=== PATIENT | female | born 1955 | race Caucasian/White ===

== ENCOUNTER 2016-12-03 13:09 | Emergency (ER) | payer OTHER ==
[~2016-12-03] VITALS: Ht 154.9 cm; Wt 70.0 kg
[~2016-12-03 13:09] MED LIST: ALBUAER2 INH; ALPR-411 PO; ASPEC325 PO; CALC600T9 PO; CHOL20007 PO; CLC6 PO; CYAN1TAB17 PO; LANS15CA15 PO; LPR25 PO; LPT40 PO; LSN5 PO; MAGN1CAP2 PO; MULT-614 PO; PLV75 PO; UBIQ1CAP PO
[2016-12-03 13:14] VITALS: Ht 154.9 cm; Wt 70.0 kg
[2016-12-03 13:35] VITALS: O2SAT 97
[2016-12-03] MEDS ORDERED: CLOP1TAB15 PO (13:42)
[2016-12-03] MEDS ORDERED: LISI-729 PO (13:42)
[2016-12-03] MEDS ORDERED: ATOR-26 PO (13:42)
[2016-12-03] MEDS ORDERED: SODIUM CHLORIDE 0.9% 1000ML 1,000 ML IV STA (13:45)
--- NOTE | 2016-12-03 14:09 | DIAGNOSTIC IMAGING REPORT ---
CHEST ONE VIEW PORTABLE CLINICAL HISTORY: EVALUATE WEAKNESS dyspnea COMPARISON STUDY: 11/27/2016 FINDINGS: The bones soft tissues and hemidiaphragms are normal. The cardiomediastinal silhouette is normal. The lungs are clear. The pulmonary vasculature is normal. IMPRESSION: Negative chest. Electronically signed by: Cam Whittington M.D. 12/03/2016 2:07 PM 12/03/2016 2:03 PM
[2016-12-03 14:11] LABS: BASO % 0.3 %; BASO ABS # 0.02 K/uL (0-0.2); COMPLETE YES; EOS % 0.8 %; HEMATOCRIT 40.7 % (37-47); IG% 0.2 %; LYMPH % 26.6 %; LYMPH ABS # 1.65 K/uL (1.2-3.4); MEAN CELL VOLUME 86.6 fL (80-100); MEAN CORPUSCULAR HEMOGLOBIN 28.9 pg (25-34); MEAN CORPUSCULAR HGB CONC 33.4 g/dl (32-36); MEAN PLATELET VOLUME 11.7 fL (7.4-10.4); MONO % 4.4 %; NEUT % 67.7 %; PLATELET COUNT 214 K/uL (130-400)
[2016-12-03 14:18] LABS: BUN/CREATININE RATIO 13.4 (10-20); CREATININE 0.83 mg/dl (0.60-1.20); MAGNESIUM 2.3 mg/dl (1.8-2.4); POTASSIUM 3.8 mmol/L (3.5-5.1)
[2016-12-03 14:23] LABS: PROTHROMBIN TIME (PATIENT) 10.2 SECONDS (9.0-12.0)
[2016-12-03 14:29] LABS: CKMB/CK RATIO 0.6 (0-3.0); THYROID STIMULATING HORMONE 1.18 uIu/ml (0.300-4.500)
[2016-12-03 15:40] VITALS: BP 115/77; PULSE 68; TEMP 36.7; O2SAT 97
--- NOTE | 2016-12-03 16:03 | CARDIOLOGY CONSULTATION ---
DATE OF CONSULTATION: 12/03/2016 OUTPATIENT CONSULTATION CONSULTATION REQUESTED BY: Dr. Rubin. REASON FOR CONSULTATION: Palpitations. HISTORY OF PRESENT ILLNESS: Ms. Barcenas is a very pleasant 60-year-old woman who normally follows with Dr. Silverio of our cardiology practice. She presented to [facility] Emergency Department on 12/03/2016 with a complaint of palpitations. The patient has had a complicated course over the last several weeks which include a drug-eluting stent placement to diagonal vessel in the setting of a non-ST segment elevation MD followed by post-MD pericarditis followed by asthma exacerbation. She has been following with Dr. Silverio of our group and she has recently had her beta blockers discontinued due to recurrent asthma exacerbations. The patient states that she has now been off beta blockers for approximately 3 days. Yesterday was the first day after her MD that she tried to get some exercise. She states that she walked gently on a treadmill for about 10 minutes and did well and had no chest pain or shortness of breath at that time, but after she got off she started noticing a fluttering sensation in her chest. She states that her heart beat just felt irregular and just felt a little funny to her. She denied any associated symptoms with it and that just something she noticed then several hours later after eating dinner, she was sitting down and the symptoms became worse. She states that she just felt her heart pounding in her chest and this feeling waxed and waned for several hours and lasted overnight. She denied any associated symptoms with it, specifically denied any chest pain, shortness of breath, lightheadedness, dizziness, or syncope. She states that she just felt off. On 12/03/2016, her symptoms persisted, she came into the Emergency Department and she states that her symptoms persisted while on telemetry monitoring here despite the fact that monitor showed only normal sinus rhythm with no significant ectopy and no arrhythmias. Currently, she states that she feels well with only a slight sensation of her heart beating irregular in her chest. PAST SURGICAL HISTORY: 1. Cardiac catheterization with drug-eluting stent placement to the diagonal, October 2016. 2. Gastric bypass surgery. 3. Cholecystectomy. 4. Hernia repair. MEDICAL ILLNESSES: 1. Coronary artery disease status post drug-eluting stent placement in the setting of a non-ST segment elevation MD. 2. Anxiety. 3. Asthma. 4. GERD. 5. Dyslipidemia. 6. Hypertension. 7. Obstructive sleep apnea. 8. Post-non ST-segment elevation MD pericarditis. FAMILY HISTORY: Mother with coronary artery disease in her 50s. SOCIAL HISTORY: She denies any alcohol, tobacco or recreational drug use. She is . She lives at home with her . ALLERGIES: 1. MORPHINE. 2. CODEINE. 3. Terazosin. MEDICATIONS AN OUTPATIENT: 1. Aspirin 81 mg daily. 2. Atorvastatin 80 mg daily. 3. Plavix 75 mg daily. 4. Prevacid 15 mg daily. 5. Lisinopril 5 mg daily. 6. Effexor daily. 7. Xanax as needed. 8. Albuterol as needed. REVIEW OF SYSTEMS: As per HPI, all other review of systems reviewed and negative at this time. PHYSICAL EXAMINATION: VITALS: Temperature afebrile, pulse 68, respiratory rate 12, blood pressure 115/77, saturating 97% on room air. GENERAL: Awake, alert, oriented x3 in no acute distress. HEENT: Normocephalic, atraumatic. Pupils equal, round, and reactive to light and accommodation. Extraocular muscles intact. Anicteric sclerae. Moist mucous membranes. NECK: No JVD, no bruit. CARDIOVASCULAR: Regular. Positive S4. Normal S1 and S2. No S3. No murmurs, rubs or gallops. PULMONARY: Clear to auscultation bilaterally. No rales, rhonchi, or wheezing. ABDOMEN: Bowel sounds x4, soft. No rebound, guarding, tenderness. No organomegaly. EXTREMITIES: No clubbing, cyanosis or edema. +2 pedal pulses bilaterally. SKIN: Warm and dry. TEST RESULTS: A 12-lead EKG performed in the Emergency Department independently reviewed at this time shows normal sinus rhythm with slight sinus arrhythmia at 70 beats per minute, inverted T waves in the lateral leads, no change compared to previous study. LABORATORY STUDIES OF SIGNIFICANCE: Sodium 141, potassium 3.8, BUN 11, creatinine 0.8, magnesium 2.3. TSH of 1.2. IMPRESSION: 1. Palpitations secondary to cardiac awareness. 2. Coronary artery disease status post drug-eluting stent placement to the diagonal. 3. Post-myocardial infarction pericarditis. 4. Asthma. RECOMMENDATIONS: It was my pleasure to see Ms. Barcenas in consultation today. The pathophysiology of cardiac awareness and beta vickey withdrawal were discussed with the patient and her at great lengths. She was counseled that she is most likely just more aware of her heart beating, now that she is off the beta vickey and given her history of asthma along with the fact she has been off the beta vickey for few days now, it has probably gone through the worst with that, it will not be restarted at this time. Consideration could be given to adding a calcium channel vickey in the future, but I will defer at this point, instead will have her seen in our office in 1 week in followup and further adjustments could be made at that time. Otherwise, it is okay for the patient to be discharged to home from a cardiac standpoint with no other medication changes. Thank you very much for allowing me to participate in the care of your patient.
[2016-12-03] MEDS ORDERED: VENL1CAP92 PO (21:12)
--- NOTE | 2016-12-03 22:36 | EMERGENCY ROOM VISIT NOTE ---
History Report prepared by Juan Alberto: Freya Costa Under the Supervision of: Dr. Logan Rubin M.D. First contact with patient: 13:45 Chief Complaint: IRREGULAR HEARTBEAT Stated Complaint: IRREGULAR HEARTBEAT Nursing Triage Summary: Patient states she noticed an irregular heartrate last night approx 5pm, feels like butterflies sometimes. Associated SOB, mid sternal chest pain. Pain in neck intermittently yesterday. History of Present Illness The patient is a 60 year old female who presents to the Emergency Room with complaints of intermittent palpitations that began last evening around 1700. Per records, the patient had a Non-STEMI in October and ad a MOSQUERA to D1. Records indicate that the patient additionally had posterior infarction pericarditis. The patient states that she developed "flutters" intermittently last night. She states that the palpitations seem more forceful, but denies it happening persistently. The patient additionally associates shortness of breath , dizziness, and lightheadedness with her symptoms today. She additionally notes mid sternal chest discomfort, but denies any sharp pains. The patient states that a couple of her short episodes of chest pain felt similar to her chest pain with her Non-STEMI, but denies any being as long lasting as the pain she felt with her Non-STEMI. She states that she has experienced left neck pain last night, but denies any jaw pain or arm pain. The patient states that she has been taking all her medications. Pt denies LOC, headache, fevers, chills, diaphoresis, visual changes, nausea, vomiting, abdominal pain, back pain , loss of appetite, melena, hematochezia, urinary symptoms, numbness, weakness, leg swelling or pain, lymphadenopathy, rash, or other complaints. Source of History: patient, other (previous records) Onset: last evening around 1700 Position: other (global) Quality: other (palpitations) Timing: intermittent Associated Symptoms: + SOB, + chest pain (mid-sternal intermittent) Note: Associated Symptoms: lightheadedness, dizziness Review of Systems See HPI for pertinent positives and negatives. A total of ten systems were reviewed and were otherwise negative. Past Medical & Surgical Medical Problems: (1) Anxiety (2) Asthma (3) Depression (4) GERD (gastroesophageal reflux disease) (5) Hyperlipidemia Nec/Nos (6) Hypertension Nos (7) Migraine (8) Non-STEMI (non-ST elevated myocardial infarction) (9) Obesity, Nos (10) Sleep apnea Surgical Problems: (1) Gastric bypass status for obesity (2) S/P cholecystectomy (3) S/P hernia repair Family History ALS (amyotrophic lateral sclerosis) SISTER Coronary artery disease MOTHER (CABG / age 53) Hypertension MOTHER Social History Smoking Status: Former Smoker Drug Use: none Marital Status: Housing Status: lives with family Occupation Status: employed Current/Historical Medications Scheduled Atorvastatin (Lipitor), 80 MG PO DAILY Calcium Carbonate-Vitamin D (Calcium + D), 1 TAB PO BID Cholecalciferol (Vitamin D3), 2,000 UNITS PO DAILY Clopidogrel (Plavix), 75 MG PO DAILY Cyanocobalamin (B-12), 2,500 MCG PO MONTHLY Lansoprazole (Prevacid), 15 MG PO DAILY Lisinopril (Zestril), 5 MG PO DAILY Magnesium Oxide (Mg Supplement (Magnesium), 400 MG PO DAILY Multiple Vitamins W/ Minerals (Centrum Silver Ultra Wome), 1 TAB PO BID Ubiquinol (Active-Q Extra Strength), 200 MG PO DAILY Venlafaxine Hcl (Effexor Xr), 2 CAP PO DAILY Scheduled PRN Albuterol (Ventolin), 2 PUFFS INH Q4H PRN for SOB/Wheezing Alprazolam (Xanax), 0.5 MG PO TID PRN for Anxiety/Agitation Allergies Coded Allergies: Morphine (Verified Adverse Reaction, Intermediate, nausea, 12/03/16) Codeine (Verified Adverse Reaction, Mild, NAUSEA, 12/03/16) Terazosin (Verified Adverse Reaction, Mild, NAUSEA, 12/03/16) Physical Exam Vital Signs Date Time Temp Pulse Resp B/P Pulse Ox O2 Delivery O2 Flow Rate FiO2 12/03/16 15:40 36.7 68 18 115/77 97 12/03/16 15:13 68 18 115/77 97 Room Air 12/03/16 15:09 63 21 97 12/03/16 15:04 73 16 97 12/03/16 14:59 68 14 97 12/03/16 14:54 63 20 98 12/03/16 14:49 67 18 97 12/03/16 14:44 61 15 98 12/03/16 14:39 66 17 98 12/03/16 14:34 61 17 98 12/03/16 14:29 65 20 97 12/03/16 14:24 68 18 98 12/03/16 14:19 63 23 97 12/03/16 14:14 67 25 99 12/03/16 14:11 118/78 12/03/16 14:09 65 20 100 12/03/16 14:04 73 19 100 12/03/16 13:59 71 17 100 12/03/16 13:54 73 15 12/03/16 13:49 72 16 90 12/03/16 13:44 69 16 12/03/16 13:39 71 18 12/03/16 13:35 97 Room Air 12/03/16 13:35 69 12/03/16 13:34 76 19 12/03/16 13:17 95 Room Air 12/03/16 13:14 36.7 69 20 150/68 95 Room Air Physical Exam GENERAL: Awake, alert, well-appearing, in no distress HENT: Normocephalic, atraumatic. Oropharynx unremarkable. EYES: Normal conjunctiva. Sclera non-icteric. NECK: Supple. No nuchal rigidity. FROM. No JVD. RESPIRATORY: Clear to auscultation. CARDIAC: Regular rate, normal rhythm. Extremities warm and well perfused. Pulses equal. ABDOMEN: Soft, non-distended. No tenderness to palpation. No rebound or guarding. No masses. RECTAL: Deferred. MUSCULOSKELETAL: Chest examination reveals no tenderness. The back is symmetrical on inspection without obvious abnormality. There is no CVA tenderness to palpation. No joint edema. LOWER EXTREMITIES: Calves are equal size bilaterally and non-tender. No edema. No discoloration. NEURO: Normal sensorium. No sensory or motor deficits noted. SKIN: No rash or jaundice noted. Medical Decision & Procedures ER Provider Diagnostic Interpretation: X-ray: Per my interpretation, radiologist review. CHEST ONE VIEW PORTABLE CLINICAL HISTORY: EVALUATE WEAKNESS dyspnea COMPARISON STUDY: 11/27/2016 FINDINGS: The bones soft tissues and hemidiaphragms are normal. The cardiomediastinal silhouette is normal. The lungs are clear. The pulmonary vasculature is normal. IMPRESSION: Negative chest. Electronically signed by: Cam Whittington M.D. 12/03/2016 2:07 PM 12/03/2016 2:03 PM Laboratory Results 12/03/16 13:35 Red Blood Count 4.70, Mean Corpuscular Volume 86.6, Mean Corpuscular Hemoglobin 28.9, Mean Corpuscular Hemoglobin Concent 33.4, Mean Platelet Volume 11.7, Neutrophils (%) (Auto) 67.7, Lymphocytes (%) (Auto) 26.6, Monocytes (%) (Auto) 4.4, Eosinophils (%) (Auto) 0.8, Basophils (%) (Auto) 0.3, Neutrophils # (Auto) 4.20, Lymphocytes # (Auto) 1.65, Monocytes # (Auto) 0.27, Eosinophils # (Auto) 0.05, Basophils # (Auto) 0.02 12/03/16 13:35 Test 12/03/16 13:35 12/03/16 14:02 White Blood Count 6.20 K/uL (4.8-10.8) Red Blood Count 4.70 M/uL (4.2-5.4) Hemoglobin 13.6 g/dL (12.0-16.0) Hematocrit 40.7 % (37-47) Mean Corpuscular Volume 86.6 fL (80-100) Mean Corpuscular Hemoglobin 28.9 pg (25-34) Mean Corpuscular Hemoglobin Concent 33.4 g/dl (32-36) Platelet Count 214 K/uL (130-400) Mean Platelet Volume 11.7 fL (7.4-10.4) Neutrophils (%) (Auto) 67.7 % Lymphocytes (%) (Auto) 26.6 % Monocytes (%) (Auto) 4.4 % Eosinophils (%) (Auto) 0.8 % Basophils (%) (Auto) 0.3 % Neutrophils # (Auto) 4.20 K/uL (1.4-6.5) Lymphocytes # (Auto) 1.65 K/uL (1.2-3.4) Monocytes # (Auto) 0.27 K/uL (0.11-0.59) Eosinophils # (Auto) 0.05 K/uL (0-0.5) Basophils # (Auto) 0.02 K/uL (0-0.2) RDW Standard Deviation 43.3 fL (36.4-46.3) RDW Coefficient of Variation 13.6 % (11.5-14.5) Immature Granulocyte % (Auto) 0.2 % Immature Granulocyte # (Auto) 0.01 K/uL (0.00-0.02) Prothrombin Time 10.2 SECONDS (9.0-12.0) Prothromb Time International Ratio 1.0 (0.9-1.1) Activated Partial Thromboplast Time 24.9 SECONDS (21.0-31.0) Partial Thromboplastin Ratio 1.0 Anion Gap 11.0 mmol/L (3-11) Est Creatinine Clear Calc Drug Dose 63.7 ml/min Estimated GFR () 88.2 Estimated GFR (Non- 76.1 BUN/Creatinine Ratio 13.4 (10-20) Calcium Level 9.0 mg/dl (8.5-10.1) Magnesium Level 2.3 mg/dl (1.8-2.4) Total Bilirubin 0.4 mg/dl (0.2-1) Direct Bilirubin 0.1 mg/dl (0-0.2) Aspartate Amino Transf (AST/SGOT) 40 U/L (15-37) Alanine Aminotransferase (ALT/SGPT) 43 U/L (12-78) Alkaline Phosphatase 119 U/L (45-117) Total Creatine Kinase 84 U/L (26-192) Creatine Kinase MB 0.5 ng/ml (0.5-3.6) Creatine Kinase MB Ratio 0.6 (0-3.0) Total Protein 8.4 gm/dl (6.4-8.2) Albumin 4.5 gm/dl (3.4-5.0) Thyroid Stimulating Hormone (TSH) 1.180 uIu/ml (0.300-4.500) Bedside Troponin I 0.000 ng/ml (0-0.045) Laboratory results reviewed by me Medications Administered Medications (Trade) Dose Ordered Sig/Dulce Maria Route Start Time Stop Time Status Last Admin Dose Admin Sodium Chloride (Nss 1000ml) 1,000 ml @ 125 mls/hr Q8H STAT IV 12/03/16 13:45 12/03/16 16:35 DC 12/03/16 14:01 125 MLS/HR ECG Indication: chest pain, palpitations, SOB/dyspnea Rate (beats per minute): 70 Rhythm: sinus with SA Findings: T-wave inversion (Lateral), no ectopy Comparison ECG Date: 11/27/16 Change: no significant change ED Course 1345: Ordered Sodium Chloride 1000 ml @ 125 mls/hr IV. 1355: The patient was evaluated in room B4B. A complete history and physical exam was performed. 1457: I discussed the patients case with Emilee Coronel Cardiology. He states that he will come see the patient. 1500: I reevaluated the patient and she is resting comfortably. I discussed the exam findings with her and informed her that Emilee Coronel is going to come evaluate her. 1523: I discussed the patients case with Dr. Urbina Cardiology. He states that the patient stopped her Beta-vickey three days ago. He additionally states that the patient can be discharged and can follow up in the office with him. 1530: I reevaluated the patient and she is resting comfortably. I discussed the exam findings with her and I discussed the treatment plan. She verbalized complete understanding and agreement. She is ready to go home. Medical Decision Prior records/ancillary studies reviewed. Triage Nursing notes reviewed and agree them. Additional history obtained from the family. The patient's history was concerning for palpitations. Differential diagnosis: Etiologies such as electrolyte abnormality, cardiac dysrhythmia, thyroid dysfunction, pulmonary embolism, infection, gastrointestinal, as well as others were entertained. Physical examination: Benign as above. ER treatment provided: Cardiac monitoring. On reassessment the patient felt better. Diagnostic interpretation by me: The electrocardiogram was negative for pathologic change. The labs revealed unremarkable CBC, coags, troponin and TSH and LFTs. Imaging studies: Chest x-ray as above. Consultation: A consultation was placed with the watch dial maker seasonal sales associate, Dr. Urbina. The case was discussed and diagnostics were reviewed. The patient was evaluated in the ER for further treatment. He noted the patient will follow-up with the office. He also noted that despite her answer to my initial questioning she admitted to stopping her beta vickey a few days ago. The patient will restart this medication as instructed by cardiology. By the evaluation outlined above emergent etiologies such as electrolyte abnormality, cardiac dysrhythmia, thyroid dysfunction, pulmonary embolism, infection, as well as others were deemed relatively unlikely. The patient and were informed about the findings as listed above. All questions were answered and they were pleased with the treatment. Return instructions were outlined and the patient was discharged in stable condition. Outpatient prescription management: Restart metoprolol Referral: The patient was referred back to her watch dial maker for a recheck of the current condition. The chart was completed utilizing [employer] Speech voice recognition software. Grammatical errors, random word insertions, pronoun errors, and incomplete sentences are an occasional consequence of this system due to software limitations, ambient noise, and hardware issues. Any formal questions or concerns about the content, text, or information contained within the body of this dictation should be directly addressed to the physician for clarification. Consults Time Called: [phone] Consulting Physician: Emilee Coronel Cardiology Returned Call: [phone] I discussed the patients case with Emilee Coronel Cardiology. He states that he will come see the patient. Impression Primary Impression: Palpitations Scribe Attestation The scribe's documentation has been prepared under my direction and personally reviewed by me in its entirety. I confirm that the note above accurately reflects all work, treatment, procedures, and medical decision making performed by me. Departure Information Dispostion Home / Self-Care Referrals Danilo Perez M.D. (PCP) Forms HOME CARE DOCUMENTATION FORM, IMPORTANT VISIT INFORMATION Patient Instructions A Signature Page, My [facility] Additional Instructions PALPITATIONS(RAPID OR SKIPPING HEARTBEAT) INSTRUCTIONS: Rest and drink plenty of fluids as tolerated. Continue current medications. Resume normal activities once your symptoms resolve. Eat a heart healthy, low fat, low cholesterol diet. Return to the ER immediately for passing out, chest pain, abdominal pain, vomiting, fevers, difficulty breathing, worsening of your condition, or as needed. Follow up with your watch dial maker as discussed by Dr. Urbina for a recheck of your current condition.
[2016-12-15] MEDS ORDERED: ATOR-24 PO (13:24)
[2017-01-25] MEDS ORDERED: ATVI IV (18:19)
[2017-01-25] MEDS ORDERED: PROTONIX IV (18:19)
[2017-02-10] MEDS ORDERED: PRVHFAIN INH (12:14)
[2017-02-14] MEDS ORDERED: TRAM-10 PO (14:50)
== END 2016-12-03 15:42 | disposition home or self-care (01) ==
LOC: C.EDB 13:11
DX: R00.2 Palpitations (principal); E78.5 Hyperlipidemia, unspecified; I10 Essential (primary) hypertension; K21.9 Gastro-esophageal reflux disease without esophagitis; F32.9 Major depressive disorder, single episode, unspecified; F41.9 Anxiety disorder, unspecified; I25.2 Old myocardial infarction; G47.30 Sleep apnea, unspecified; J45.909 Unspecified asthma, uncomplicated; Z98.84 Bariatric surgery status; Z90.49 Acquired absence of other specified parts of digestive tract; Z87.891 Personal history of nicotine dependence; Z79.899 Other long term (current) drug therapy; Z88.5 Allergy status to narcotic agent; Z88.8 Allergy status to other drugs, medicaments and biological substances; Z82.49 Family history of ischemic heart disease and other diseases of the circulatory system

== ENCOUNTER 2017-01-24 09:51 | Inpatient (IN) | payer OTHER ==
[2017-01-24] VITALS (20 sets, daily range): BP systolic 92–131; BP diastolic 54–86; PULSE 64–85; TEMP 36.3–36.9; O2SAT 93–100; Ht 152.4 cm; Wt 67.7 kg
[~2017-01-24] VITALS: Ht 152.4 cm; Wt 67.7 kg
[~2017-01-24 09:51] MED LIST changes: -ASPEC325 PO; +ATOR-24 PO; -CLC6 PO; +CLOP1TAB15 PO; +LISI-729 PO; -LPR25 PO; -LPT40 PO; -LSN5 PO; -PLV75 PO; +VENL1CAP92 PO
[2017-01-24] MEDS ORDERED: SODIUM CHLORIDE 0.9% 1000ML 1,000 ML IV STA (10:25)
--- NOTE | 2017-01-24 10:29 | EMERGENCY ROOM VISIT NOTE ---
History Report prepared by Barryibe: Brunilda Pennington Under the Supervision of: Dr. Loy Valle M.D. First contact with patient: 10:20 Chief Complaint: NAUSEA Stated Complaint: NAUSEA,HIP PAIN,BLACK STOOL Nursing Triage Summary: bilateral hip pain. "I was told I had bursitis in the hip on " I am having pain, nausea and dark stools with blood in it." History of Present Illness The patient is a 61 year old female who presents to the Emergency Room with complaints of persistent left hip pain. She rates her discomfort as a 10/10. The patient states she was told she had bursitis in her hips 3 days ago. She saw her PCP, Dr. Perez with [facility], and states he gave her an injection, which provided some relief of her pain. She has also been taking Aspirin and Ibuprofen "around the clock" since then. She admits yesterday she started experiencing hematochezia. Her states when she used the bathroom prior to arrival "it was pure blood". The patient does take daily Plavix and reports she previously underwent gastric bypass surgery. She denies any history of previous GI bleeds or ever needing a blood transfusion. She complains of nausea but has not vomited. 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 A total of 10 systems reviewed and were otherwise negative. Past Medical & Surgical Medical Problems: (1) Anxiety (2) Asthma (3) Depression (4) GERD (gastroesophageal reflux disease) (5) Hyperlipidemia Nec/Nos (6) Hypertension Nos (7) Migraine (8) Non-STEMI (non-ST elevated myocardial infarction) (9) Obesity, Nos (10) Sleep apnea Surgical Problems: (1) Gastric bypass status for obesity (2) S/P cholecystectomy (3) S/P hernia repair Family History ALS (amyotrophic lateral sclerosis) SISTER Coronary artery disease MOTHER (CABG / age 53) Hypertension MOTHER Social History Smoking Status: Never Smoker Alcohol Use: none Drug Use: none Marital Status: Housing Status: lives with family Occupation Status: employed Current/Historical Medications Scheduled Atorvastatin (Lipitor), 1 TAB PO DAILY Calcium Carbonate-Vitamin D (Calcium + D), 2 TAB PO DAILY Cholecalciferol (Vitamin D3), 2,000 UNITS PO BID Clopidogrel (Plavix), 75 MG PO DAILY Coenzyme Q10 (Ubidecarenone) (Co Q-10), 200 MG PO DAILY Colchicine (Colchicine), 0.6 MG PO BID Cyanocobalamin (B-12), 2,000 MCG PO MONTHLY Lansoprazole (Prevacid), 15 MG PO DAILY Lisinopril (Zestril), 5 MG PO DAILY Magnesium Oxide (Mg Supplement (Magnesium), 400 MG PO BID Multivitamin (Multivitamin), 2 TAB PO DAILY Venlafaxine Hcl (Effexor Extended Rel), 75 MG PO DAILY Scheduled PRN Albuterol (Ventolin Hfa), 2 PUFF INH Q4 PRN for Wheezing Alprazolam (Xanax), 0.5 MG PO TID PRN for Anxiety/Agitation Allergies Coded Allergies: Morphine (Verified Adverse Reaction, Intermediate, nausea, 12/03/16) Codeine (Verified Adverse Reaction, Mild, NAUSEA, 12/03/16) Terazosin (Verified Adverse Reaction, Mild, NAUSEA, 12/03/16) Physical Exam Vital Signs Date Time Temp Pulse Resp B/P Pulse Ox O2 Delivery O2 Flow Rate FiO2 01/24/17 11:15 87 19 92/59 Room Air 01/24/17 10:37 91 15 101/54 01/24/17 10:26 95 01/24/17 10:14 36.8 107 18 68/36 93 Room Air Physical Exam GENERAL: Patient is well appearing and in no acute distress. HEENT: No acute trauma, normocephalic atraumatic, mucous membranes moist, no nasal congestion, no scleral icterus. NECK: No stridor, no adenopathy, no meningismus, trachea is midline. LUNGS: No dyspnea. Clear to auscultation and equal bilaterally. No wheeze, no rhonchi. HEART: Regular rate and rhythm. No murmurs, rubs, gallops appreciated. ABDOMEN: Soft, nontender, bowel sounds positive, no masses appreciated, no peritonitis. BACK: No midline tenderness, no CVA tenderness EXTREMITIES: Normal motion all extremities, no cyanosis, no edema. NEUROLOGIC: Alert and oriented, no acute motor or sensory deficits, no focal weakness, cranial nerves grossly intact. SKIN: No rash, no jaundice, no diaphoresis. Medical Decision & Procedures Laboratory Results 01/24/17 10:47 Red Blood Count 3.05, Mean Corpuscular Volume 82.3, Mean Corpuscular Hemoglobin 28.2, Mean Corpuscular Hemoglobin Concent 34.3, Mean Platelet Volume 10.3, Neutrophils (%) (Auto) 60.3, Lymphocytes (%) (Auto) 34.0, Monocytes (%) (Auto) 4.2, Eosinophils (%) (Auto) 0.7, Basophils (%) (Auto) 0.3, Neutrophils # (Auto) 3.60, Lymphocytes # (Auto) 2.03, Monocytes # (Auto) 0.25, Eosinophils # (Auto) 0.04, Basophils # (Auto) 0.02 01/24/17 10:47 Test 01/24/17 10:47 01/24/17 10:49 White Blood Count 5.97 K/uL (4.8-10.8) Red Blood Count 3.05 M/uL (4.2-5.4) Hemoglobin 8.6 g/dL (12.0-16.0) Hematocrit 25.1 % (37-47) Mean Corpuscular Volume 82.3 fL (80-100) Mean Corpuscular Hemoglobin 28.2 pg (25-34) Mean Corpuscular Hemoglobin Concent 34.3 g/dl (32-36) Platelet Count 218 K/uL (130-400) Mean Platelet Volume 10.3 fL (7.4-10.4) Neutrophils (%) (Auto) 60.3 % Lymphocytes (%) (Auto) 34.0 % Monocytes (%) (Auto) 4.2 % Eosinophils (%) (Auto) 0.7 % Basophils (%) (Auto) 0.3 % Neutrophils # (Auto) 3.60 K/uL (1.4-6.5) Lymphocytes # (Auto) 2.03 K/uL (1.2-3.4) Monocytes # (Auto) 0.25 K/uL (0.11-0.59) Eosinophils # (Auto) 0.04 K/uL (0-0.5) Basophils # (Auto) 0.02 K/uL (0-0.2) RDW Standard Deviation 45.5 fL (36.4-46.3) RDW Coefficient of Variation 15.2 % (11.5-14.5) Immature Granulocyte % (Auto) 0.5 % Immature Granulocyte # (Auto) 0.03 K/uL (0.00-0.02) Ovalocytes 1+ Prothrombin Time 10.6 SECONDS (9.0-12.0) Prothromb Time International Ratio 1.0 (0.9-1.1) Activated Partial Thromboplast Time 20.8 SECONDS (21.0-31.0) Partial Thromboplastin Ratio 0.8 Est Creatinine Clear Calc Drug Dose 70.7 ml/min Estimated GFR () 104.0 Estimated GFR (Non- 89.8 BUN/Creatinine Ratio 49.6 (10-20) Calcium Level 8.1 mg/dl (8.5-10.1) Magnesium Level 1.9 mg/dl (1.8-2.4) Total Bilirubin 0.3 mg/dl (0.2-1) Aspartate Amino Transf (AST/SGOT) 20 U/L (15-37) Alanine Aminotransferase (ALT/SGPT) 37 U/L (12-78) Alkaline Phosphatase 88 U/L (45-117) Troponin I < 0.015 ng/ml (0-0.045) Total Protein 6.5 gm/dl (6.4-8.2) Albumin 3.6 gm/dl (3.4-5.0) Globulin 2.9 gm/dl (2.5-4.0) Albumin/Globulin Ratio 1.2 (0.9-2) Hepatitis C Antibody Screen NEG (NEG) Bedside Hemoglobin 8.5 g/dl (12.0-16.0) Bedside Hematocrit 25 % (37-47) Bedside Sodium 138 mEq/L (135-144) Bedside Potassium 3.7 mEq/L (3.3-5.0) Bedside Chloride 101 mEq/L (101-112) Bedside Total CO2 20 mEq/l (24-31) Anion Gap 21.0 mmol/L (16-25) Bedside Blood Urea Nitrogen 34 mg/dl (7-18) Bedside Creatinine 0.7 mg/dl (0.6-1.3) Bedside Glucose (other) 138 mg/dl (70-99) Bedside Ionized Calcium ([place]) 1.14 mmol/l (1.12-1.32) Laboratory results as reviewed by me. Medications Administered Medications (Trade) Dose Ordered Sig/Dulce Maria Route Start Time Stop Time Status Last Admin Dose Admin Sodium Chloride 1,000 ml @ 999 mls/hr Q1H1M STAT IV 01/24/17 10:25 01/24/17 11:25 DC 01/24/17 11:04 999 MLS/HR Pantoprazole Sodium 80 mg/ Dextrose 120 ml @ 480 mls/hr 1045 IV 01/24/17 10:45 01/24/17 10:59 DC 01/24/17 11:04 480 MLS/HR Pantoprazole Sodium/Dextrose (Protonix Inj/D5 100ml) 100 ml @ 20 mls/hr Q5H IV 01/24/17 10:45 02/23/17 10:44 01/24/17 14:47 20 MLS/HR Fentanyl Citrate (Fentanyl Inj) 50 mcg NOW STAT IV 01/24/17 11:32 01/24/17 11:33 DC 01/24/17 11:42 50 MCG ECG Indication: weakness Rate (beats per minute): 86 Rhythm: normal sinus (normal sinus rhythm) Findings: T-wave inversion (T-wave inversion lead !), no acute ischemic change , no ectopy ED Course 1021: The patient was evaluated in room C7. A complete history and physical exam was performed. 1025: NSS 1000 ml @ 999 mls/hr IV. 1026: I requested nursing obtain 2 IV sites. 1045: Pantoprazole Sodium 40 mg/Dextrose 100 ml @ 20 mls/hr IV, Pantoprazole Sodium 80 mg/Dextrose 120 ml @ 480 mls/hr IV. 1132: Fentanyl Citrate 50 mcg IV. 1142: I discussed the patients case with Isabel Valverde PA-C, [facility] Hospitalist. The patient will be further evaluated. 1152: I reevaluated the patient. I discussed my plan for her to remain in the hospital for further evaluation and management and she verbalized complete understanding and agreement. 1310: The patient just went upstairs. There was some difficulty obtaining a type and cross on her. Medical Decision Differential: Diverticulitis, AVM, Coagulopathy, Colitis, Malignancy, Upper GI bleed, Fissure, Hemorrhoids, amongst other pathologies entertained. 61 yr old female arrives hypotensive complaining of black stools and generalized weakness. HgB has dropped by 5 since last lab testing (from 13 to 8 ). She recently had stenting and should have HgB > 10 as known CAD. No CP nor symptoms cardiac involvement. I suspect her large NSAID/ASA use over the last few days has led to acute gastric hemorrhage thus protonix started. There was delay in PRBC given as needed further type/crossing. Fortunately BP much improved with initial fluid bolus. Given Fentanyl for bursitis of hip with improvement. No clear infectious findings on hip but currently must get gi bleed under control and patient further stabilized. I discussed case with hospitalist and will bring in for further evaluation and treatment. Consults Time Called: 1133 Consulting Physician: Isabel Valverde PA-C, [facility] Hospitalist Returned Call: 1142 I discussed the patients case with Isabel Valverde PA-C, [facility] Hospitalist. The patient will be further evaluated. Impression Primary Impression: Acute GI bleeding Additional Impressions: Anemia Hypotension Critical Care I have personally spent greater than 30 minutes of critical care time in the direct management of this patient. This was a life/limb threatening event. This includes time spent evaluating patient, direct bedside care, chart review, placing orders, interpretation of diagnostic studies, discussion with consultants, patient, and family members, as well as other required patient management activities. This 30 minutes is in excess of all separately billable procedures. Scribe Attestation The scribe's documentation has been prepared under my direction and personally reviewed by me in its entirety. I confirm that the note above accurately reflects all work, treatment, procedures, and medical decision making performed by me. Departure Information Dispostion Being Evaluated By Hospitalist Referrals Danilo Perez M.D. (PCP) Patient Instructions My [facility] Problem Qualifiers Additional Impressions: Anemia Anemia type: other cause Other causes of anemia: acute posthemorrhagic Qualified Codes: D62 - Acute posthemorrhagic anemia Hypotension Hypotension type: unspecified hypotension type Qualified Codes: I95.9 - Hypotension, unspecified
[2017-01-24] MEDS ORDERED: PANTOprazole INJ 80 MG in DEXTROSE 5% 100ML IV SCH (10:45)
[2017-01-24 10:58] LABS: BASO % 0.3 %; BASO ABS # 0.02 K/uL (0-0.2); EOS % 0.7 %; HEMATOCRIT 25.1 % (37-47); IG% 0.5 %; LYMPH ABS # 2.03 K/uL (1.2-3.4); MEAN CELL VOLUME 82.3 fL (80-100); MEAN CORPUSCULAR HEMOGLOBIN 28.2 pg (25-34); MEAN CORPUSCULAR HGB CONC 34.3 g/dl (32-36); MEAN PLATELET VOLUME 10.3 fL (7.4-10.4); MONO % 4.2 %; NEUT % 60.3 %; PLATELET COUNT 218 K/uL (130-400); RED BLOOD COUNT 3.05 M/uL (4.2-5.4); WHITE BLOOD COUNT 5.97 K/uL (4.8-10.8)
[2017-01-24] MEDS: PANTOprazole INJ 40 MG in DEXTROSE 5% 100ML IV SCH ×3 (11:04→20:14)
[2017-01-24 11:07] LABS: ISTAT CREATININE 0.7 mg/dl (0.6-1.3); ISTAT HEMOGLOBIN 8.5 g/dl (12.0-16.0); ISTAT IONIZED CALCIUM 1.14 mmol/l (1.12-1.32)
[2017-01-24 11:10] LABS: PARTIAL THROMBOPLASTIN RATIO 0.8; PROTHROMBIN TIME (PATIENT) 10.6 SECONDS (9.0-12.0)
[2017-01-24 11:15] LABS: ALT/SGPT 37 U/L (12-78); BLOOD UREA NITROGEN 36 mg/dl (7-18); BUN/CREATININE RATIO 49.6 (10-20); CALCIUM 8.1 mg/dl (8.5-10.1); CARBON DIOXIDE 24 mmol/L (21-32); CHLORIDE 103 mmol/L (98-107); CREATININE 0.72 mg/dl (0.60-1.20); GLUCOSE 136 mg/dl (70-99); MAGNESIUM 1.9 mg/dl (1.8-2.4); POTASSIUM 3.7 mmol/L (3.5-5.1); SODIUM 134 mmol/L (136-145)
[2017-01-24 11:20] LABS: ALB/GLOB RATIO 1.2 (0.9-2); ALKALINE PHOSPHATASE 88 U/L (45-117); AST/SGOT 20 U/L (15-37)
[2017-01-24 11:26] LABS: COMPLETE YES; OVALOCYTES 1+
[2017-01-24] MEDS ORDERED: FENTANYL CITRATE INJ 50 MCG/1 ML 2 ML VIAL IV STA (11:32)
[2017-01-24] MEDS ORDERED: EFFSR75 PO (12:14)
[2017-01-24] MEDS ORDERED: MULT-506 PO (12:14)
[2017-01-24] MEDS ORDERED: COEN1CAP37 PO (12:14)
[2017-01-24] MEDS ORDERED: COLC0.6T54 PO (12:14)
[2017-01-24] MEDS ORDERED: SODIUM CHLORIDE 0.9% 1000ML 1,000 ML IV SCH (12:15)
[2017-01-24] MEDS ORDERED: NITROGLYCERIN 0.4 MG SL PER TAB CHARGE SL PRN (12:15)
[2017-01-24] MEDS ORDERED: ACETAMINOPHEN 325 MG TAB PO PRN (12:15)
[2017-01-24] MEDS ORDERED: ALBUTEROL HFA 8 GM INHALER INH PRN ×2 (12:30→13:15)
[2017-01-24] MEDS ORDERED: LORAZEPAM 2 MG/ML 1 ML VIAL IV PRN (12:30)
--- NOTE | 2017-01-24 15:27 | Progress Note ---
Progress Note Date of Service Jan 24, 2017. Progress Note ATTENDING NOTE : pt seen and examined in agreement with documentation . H&P by Isabel Webb 61 yo F hx of CAD -recent NSTEMI on Oct 2016 had ALMITA placed on D1 ( diagonal artery ) ECHO shows preserved LV function EF 55 -60 % with regional wall motion abnormalities involving the mid and apical lateral and anterior wall pt was started on dual antiplatelet _Aspirin /Plavix pt later developed most MO Pericarditis -Aspirin dose was increased to full strength with addition of Colchicine Developed left hip pain few days back was evaluated by Family Physician thought to have possible left hip bursitis had steroid injection with minimum relief started to take Ibuprofen 400 gm q 4hrs in addition of taking Aspirin and Plavix mentions not able to have much PO intake in past 3 days due to severe Left hip pain developed melanotic stool yesterday X3 , with one episode of Bright red blood per rectum associated with Dizzy spell , lightheadedness, nausea -no vomiting no complain of chest pain no syncope on arrival to ED ,had one episode of melena was found to be hypotensive, tachycardic , Hb ~ 8 ( hb in 10/2016 was ~13 ) P/E: gen :no apparent distress , very pale HEENT ; sclera non icteric Lungs; CTA HT : regular Lungs: CTA abdomen ; soft, no epigastric tenderness, bowel sound active Ext ; trace bilat lower ext edema . superficial bruise /ecchymosis at left hip area -steroid injection site Neuro: no focal deficit A/P : MELENA /GI BLEED : possible upper GI bleed NSAID's induced -on dual antiplatelet tx due to ALMITA taking Motrin for left hip pain NPO IV PPI gtt ordered admit to tele GI eval requested case D/w Dr Pedraza education counselor GI will given PRBC transfusion possible EGD later today ACUTE BLOOD LOSS ANEMIA : due to above getting 1 unit of PRBC transfusion -ordered in ED will order for 2 nd unit ( keep HB > 10 given recent NSTEMI ) follow H&H Q 8hrs transfusion as needed on IV PPI gtt plan for EGD later today CAD /RECENT NSTEMI S/P ALMITA PTCA : ALMITA placed on Diagonal artery on 10/2016 will need uninterrupted Aspirin and Plavix tx for at least 1 yrs D/w Cardiology Dr Bales pt took her AM dose of Plavix today will order for tomorrow dose as well no anginal symptom monitor in tele correct anemia to keep Hb > 10 to prevent demand ischemia /cardiac strain Cardiology consulted -pt is known to Dr Bales HYPOTENSION due to acute blood loss anemia BP improved after PRBC transfusion and IV fluid hold ACEI correct anemia as outlined above LEFT HIP PAIN : possible bursitis ? no imaging done will order for xray of hip after acute anemia /GI bleed/hemodynamic instability resolved will need Ortho eval when medically stable PT/OT eval prior to discharge home FULL CODE rest of the problem list as outlined by Isabel Webb PA-c documentation
--- NOTE | 2017-01-24 15:31 | GASTROINTESTINAL CONSULTATION ---
DATE OF CONSULTATION: 01/24/2017 I have been asked to see Ms. Dorita Barcenas today for complaint of melena. HISTORY OF PRESENT ILLNESS: She is a pleasant 61-year-old female who presents to the ER today with significant complaints of left hip pain. She says that this pain has been going on for about a week now, started after recent stress test and she has been having left hip pain. Since that time she saw her primary care doctor, Dr. Perez in the outpatient setting 3 days prior and had an injection of her left hip with hydrocortisone and has been taking ibuprofen since that time. When she was also noted here, she was noted to be tachycardic and mildly hypotensive when she presented and a hemoglobin was drawn and her hemoglobin was resulted to be 8.6. She says that she has been having black stool. She had 1 yesterday and 3 this morning with the last occurring 3-1/2 hours ago. She has had no hematemesis, no rectal bleeding. The story I got from the hospitals is that she was having rectal bleeding but it sounds like that she admits to only having black stools. She has had 1 liter of fluid in the ER and her pulse has come down from her presentation of 107, now down to 86 and her initial blood pressure was noted to be 68/36. When I first walked into the room, her blood pressure I took and 71/50 but then when I saw that her cuff was down around her elbow, I moved it up on her upper arm to the appropriate area and a repeat blood pressure was 102/50. She is clearly conversant in the room. She does look a little bit pale, but she says that her only complaint today is that of left hip pain. She does have a history of gastric bypass in 2010 without complications. PAST MEDICAL HISTORY: She has a past medical history for presentation of a non-ST elevation PR with a drug-eluting stent in her diagonal with a post-PR pericarditis with maintenance of Plavix since that time. She had a stress echo done this month that showed no inducible ischemia with some mild hypokinesis of the apical left ventricle. Other past medical history is significant for anxiety, asthma, depression, GERD, hyperlipidemia, hypertension, migraine, obesity, sleep apnea. PAST SURGICAL HISTORY: Includes gastric bypass, cholecystectomy, hernia repair. FAMILY HISTORY: Her sister has ALS, her mother has CAD and hypertension. SOCIAL HISTORY: She is a former smoker, quit in 1979. No alcohol use. Lives with her family. REVIEW OF SYSTEMS: Ten-system review of systems is negative except for as stated above. HOME MEDICATIONS: Include Lipitor, calcium, vitamin D, Plavix, coenzyme Q10, colchicine, cyanocobalamin, Prevacid daily, lisinopril, magnesium, multivitamin, and Effexor. Scheduled medications as needed include albuterol and alprazolam. PHYSICAL EXAMINATION: VITAL SIGNS: Upon my examination, pulse 86, blood pressure 102/50. HEART: Regular. LUNGS: Clear. ABDOMEN: Soft, nontender. She is lying on her side because left lateral hip is so painful. EXTREMITIES: Normal peripheral pulses. LABORATORIES: Include a white count of 5, hemoglobin of 8.6, platelet count of 218. Chemistries include a sodium of 138, potassium 3.7, chloride 101, BUN is 34, creatinine 0.7. Liver function tests are normal. Coags show an INR of 1.0. No recent chest x-rays. IMPRESSION: A 61-year-old female, presenting with left hip pain and likely peptic ulcer disease, given her gastric bypass. I think that she needs to be resuscitated with IVs including, probably given her heart history, 1-2 units of blood. PPI drip has been initiated in the ER appropriately. Hold her Plavix and if she would have any further bleeding, I would transfuse a unit of platelets, given her Plavix status. She does warrant upper endoscopy. The timing of thus is not to be determined and resuscitation is the most important thing in this manner. If she would have any change in clinical status, please immediately call and we will further evaluate at that time. If you have any questions or concerns, please do not hesitate to call. DEIDRA
--- NOTE | 2017-01-24 16:14 | Progress Note ---
Progress Note Date of Service Jan 24, 2017. Progress Note Discussed case with Nurse, anesthesia, Cvt Tech, as well as Hospitalist. Anesthesia would like to hold on EGD this georgie if possible in light of no recent bleeding. No melena or signs of bleeding since 930am OR is working right now Finishing first unit of blood now, second to be transfused Cardiology does not want plavix to be held given ALMITA placed in October. Most Recent BP 120, still not tachy Continue to support hemodynamics. Transfuse 2nd unit of blood Call immediately with any changes of bleeding or decrementing BP Remain NPO Plan for EGD this georgie if clinically necessary, otherwise will plan on tomorrow AM.
--- NOTE | 2017-01-24 16:45 | History and Physical ---
History & Physical Date & Time of Service: Jan 24, 2017 at 12:16 Chief Complaint: Nausea,Hip Pain,Black Stool Primary Care Physician: Danilo Perez M.D. History of Present Illness Source: patient This is a 61 y/o female with PMHx of CAD s/p stent placement, HTN, Dyslipidemia , GERD and other problems as outlined below who presents to the ED c/o hematochezia that began yesterday. Pt reports that yesterday she noticed bright red blood in her stool. She has had 4 bowel movements since that time and this morning states it was "all blood". Sxs are assoc with weakness/fatigue, mild exertional SOB, nausea and lightheadedness. Pt was diagnosed with L hip bursitis 3 days ago. She has been taking ASA and Ibuprofen "around the clock" every 4 hours for the past few days. Pt denies history of GI bleed and has never required a transfusion. Patient also has a history of CAD and had one stent placed in October 2016. She takes ASA and Plavix. Pt denies fever/chills , diaphoresis, chest pain, abd pain, vomiting, bladder issues, LE edema or calf pain. In the ED, patient is tachy and hypotensive on arrival. HgB 8.6. Pt will be admitted for further evaluation and treatment. Past Medical/Surgical History Medical Problems: (1) Anxiety Status: Chronic (2) Asthma Status: Chronic (3) Depression Status: Chronic (4) GERD (gastroesophageal reflux disease) Status: Chronic (5) Hyperlipidemia Nec/Nos Status: Chronic (6) Hypertension Nos Status: Chronic (7) Migraine Status: Chronic (8) Non-STEMI (non-ST elevated myocardial infarction) Status: Chronic (9) Obesity, Nos Status: Chronic (10) Sleep apnea Permanent Comment: CPAP Status: Chronic Surgical Problems: (1) Gastric bypass status for obesity Status: Chronic (2) S/P cholecystectomy Status: Chronic (3) S/P hernia repair Status: Chronic Family History ALS (amyotrophic lateral sclerosis) SISTER Coronary artery disease MOTHER (CABG / age 53) Hypertension MOTHER Social History Smoking Status: Former Smoker (15 pack year history; quit 1979) Alcohol Use: none Drug Use: none Marital Status: Housing status: lives with family Occupational Status: employed Immunizations History of Influenza Vaccine: No History of Tetanus Vaccine?: No History of Pneumococcal: No History of Hepatitis B Vaccine: Yes Hepatitis Immunization Date: May 14, 1990 Multi-Drug Resistant Organisms History of MDRO: No Allergies Coded Allergies: Morphine (Verified Adverse Reaction, Intermediate, nausea, 12/03/16) Codeine (Verified Adverse Reaction, Mild, NAUSEA, 12/03/16) Terazosin (Verified Adverse Reaction, Mild, NAUSEA, 12/03/16) Home Medications Scheduled Atorvastatin (Lipitor), 1 TAB PO DAILY Calcium Carbonate-Vitamin D (Calcium + D), 2 TAB PO DAILY Cholecalciferol (Vitamin D3), 2,000 UNITS PO BID Clopidogrel (Plavix), 75 MG PO DAILY Coenzyme Q10 (Ubidecarenone) (Co Q-10), 200 MG PO DAILY Colchicine (Colchicine), 0.6 MG PO BID Cyanocobalamin (B-12), 2,000 MCG PO MONTHLY Lansoprazole (Prevacid), 15 MG PO DAILY Lisinopril (Zestril), 5 MG PO DAILY Magnesium Oxide (Mg Supplement (Magnesium), 400 MG PO BID Multivitamin (Multivitamin), 2 TAB PO DAILY Venlafaxine Hcl (Effexor Extended Rel), 75 MG PO DAILY Scheduled PRN Albuterol (Ventolin Hfa), 2 PUFF INH Q4 PRN for Wheezing Alprazolam (Xanax), 0.5 MG PO TID PRN for Anxiety/Agitation Review of Systems Constitutional: + fatigue, + weakness, No chills, No fever, No sweats Eyes: No worsening of vision ENT: No hearing loss Respiratory: + dyspnea on exertion (mild), + shortness of breath, No cough Cardiovascular: No chest pain, No claudication, No edema, No palpitations Abdomen: + GI bleeding, + nausea, No constipation, No diarrhea, No pain, No vomiting Musculoskeletal: No calf pain, No swelling Genitourinary - Female: No dysuria Neurologic: No weakness Psychiatric: No depression symptoms Endocrine: + fatigue Hematologic / Lymphatic: No abnormal bleeding/bruising Integumentary: No new/changing skin lesions Physical Exam Vital Signs Date Time Temp Pulse Resp B/P Pulse Ox O2 Delivery O2 Flow Rate FiO2 01/24/17 11:15 87 19 92/59 Room Air 01/24/17 10:37 91 15 101/54 01/24/17 10:26 95 01/24/17 10:14 36.8 107 18 68/36 93 Room Air General Appearance: WD/WN, no apparent distress, + pertinent finding (Pt is sitting up in bed with at bedside ) Head: normocephalic, atraumatic Eyes: normal inspection ENT: hearing grossly normal Neck: supple Respiratory/Chest: chest non-tender, lungs clear, normal breath sounds, no respiratory distress Cardiovascular: regular rate, rhythm, no edema, no murmur Abdomen/GI: normal bowel sounds, non tender, soft Back: normal inspection Extremities/Musculoskelatal: normal inspection, no calf tenderness, no pedal edema Neurologic/Psych: alert, normal mood/affect, oriented x 3 Skin: normal color, warm/dry Diagnostics Laboratory Results Results Past 24 Hours Test 01/24/17 10:47 01/24/17 10:49 Range/Units White Blood Count 5.97 4.8-10.8 K/uL Red Blood Count 3.05 4.2-5.4 M/uL Hemoglobin 8.6 12.0-16.0 g/dL Hematocrit 25.1 37-47 % Mean Corpuscular Volume 82.3 80-100 fL Mean Corpuscular Hemoglobin 28.2 25-34 pg Mean Corpuscular Hemoglobin Concent 34.3 32-36 g/dl Platelet Count 218 130-400 K/uL Mean Platelet Volume 10.3 7.4-10.4 fL Neutrophils (%) (Auto) 60.3 % Lymphocytes (%) (Auto) 34.0 % Monocytes (%) (Auto) 4.2 % Eosinophils (%) (Auto) 0.7 % Basophils (%) (Auto) 0.3 % Neutrophils # (Auto) 3.60 1.4-6.5 K/uL Lymphocytes # (Auto) 2.03 1.2-3.4 K/uL Monocytes # (Auto) 0.25 0.11-0.59 K/uL Eosinophils # (Auto) 0.04 0-0.5 K/uL Basophils # (Auto) 0.02 0-0.2 K/uL RDW Standard Deviation 45.5 36.4-46.3 fL RDW Coefficient of Variation 15.2 11.5-14.5 % Immature Granulocyte % (Auto) 0.5 % Immature Granulocyte # (Auto) 0.03 0.00-0.02 K/uL Ovalocytes 1+ Prothrombin Time 10.6 9.0-12.0 SECONDS Prothromb Time International Ratio 1.0 0.9-1.1 Activated Partial Thromboplast Time 20.8 21.0-31.0 SECONDS Partial Thromboplastin Ratio 0.8 Sodium Level 134 136-145 mmol/L Potassium Level 3.7 3.5-5.1 mmol/L Chloride Level 103 98-107 mmol/L Carbon Dioxide Level 24 21-32 mmol/L Anion Gap 7.0 21.0 16-25 mmol/L Blood Urea Nitrogen 36 7-18 mg/dl Creatinine 0.72 0.60-1.20 mg/dl Est Creatinine Clear Calc Drug Dose 70.7 ml/min Estimated GFR () 104.0 Estimated GFR (Non- 89.8 BUN/Creatinine Ratio 49.6 10-20 Random Glucose 136 70-99 mg/dl Calcium Level 8.1 8.5-10.1 mg/dl Magnesium Level 1.9 1.8-2.4 mg/dl Total Bilirubin 0.3 0.2-1 mg/dl Aspartate Amino Transf (AST/SGOT) 20 15-37 U/L Alanine Aminotransferase (ALT/SGPT) 37 12-78 U/L Alkaline Phosphatase 88 45-117 U/L Troponin I < 0.015 0-0.045 ng/ml Total Protein 6.5 6.4-8.2 gm/dl Albumin 3.6 3.4-5.0 gm/dl Globulin 2.9 2.5-4.0 gm/dl Albumin/Globulin Ratio 1.2 0.9-2 Bedside Hemoglobin 8.5 12.0-16.0 g/dl Bedside Hematocrit 25 37-47 % Bedside Sodium 138 135-144 mEq/L Bedside Potassium 3.7 3.3-5.0 mEq/L Bedside Chloride 101 101-112 mEq/L Bedside Total CO2 20 24-31 mEq/l Bedside Blood Urea Nitrogen 34 7-18 mg/dl Bedside Creatinine 0.7 0.6-1.3 mg/dl Bedside Glucose (other) 138 70-99 mg/dl Bedside Ionized Calcium ([place]) 1.14 1.12-1.32 mmol/l Impression Assessment and Plan SYMPTOMATIC ANEMIA; LIKELY UPPER GI BLEED pt presented with hematochezia assoc with weakness, mild exertional SOB, nausea and lightheadedness -admit to telemetry -tachy and hypotensive on arrival -likely upper GI bleed secondary to recent NSAID use -Hgb currently 8.6; will continue to monitor with H&H q 8h -transfuse 1 unit pRBCs now and continue to transfuse PRN -hold ASA and Plavix -start IVF and Protonix drip -keep NPO -consult GI, Dr. Pedraza-pending input -continue to monitor closely HYPOTENSION -secondary to acute blood loss (see above) -hold lisinopril -cont IVF -monitor CORONARY ARTERY DISEASE -s/p stent placement 10/2016 -hold all meds for now GERD -Protonix drip DYSLIPIDEMIA -hold statin for now DVT PROPHYLAXIS -SCDs only in setting of GI bleed CODE STATUS -FULL CODE status DISPO Pt seen in collaboration with Dr Green. Please see her addendum for further details. Thanks! ATTENDING NOTE : pt seen and examined in agreement with documentation . H&P by Isabel Webb 61 yo F hx of CAD -recent NSTEMI on Oct 2016 had ALMITA placed on D1 ( diagonal artery ) ECHO shows preserved LV function EF 55 -60 % with regional wall motion abnormalities involving the mid and apical lateral and anterior wall pt was started on dual antiplatelet _Aspirin /Plavix pt later developed most IL Pericarditis -Aspirin dose was increased to full strength with addition of Colchicine Developed left hip pain few days back was evaluated by Family Physician thought to have possible left hip bursitis had steroid injection with minimum relief started to take Ibuprofen 400 gm q 4hrs in addition of taking Aspirin and Plavix mentions not able to have much PO intake in past 3 days due to severe Left hip pain developed melanotic stool yesterday X3 , with one episode of Bright red blood per rectum associated with Dizzy spell , lightheadedness, nausea -no vomiting no complain of chest pain no syncope on arrival to ED ,had one episode of melena was found to be hypotensive, tachycardic , Hb ~ 8 ( hb in 10/2016 was ~13 ) P/E: gen :no apparent distress , very pale HEENT ; sclera non icteric Lungs; CTA HT : regular Lungs: CTA abdomen ; soft, no epigastric tenderness, bowel sound active Ext ; trace bilat lower ext edema Neuro: no focal deficit A/P : MELENA /GI BLEED : possible upper GI bleed NSAID's induced -on dual antiplatelet tx due to ALMITA taking Motrin for left hip pain NPO IV PPI gtt ordered admit to tele GI eval requested case D/w Dr Pedraza general medical practitioner GI will given PRBC transfusion possible EGD later today ACUTE BLOOD LOSS ANEMIA : due to above getting 1 unit of PRBC transfusion -ordered in ED will order for 2 nd unit ( keep HB > 10 given recent NSTEMI ) follow H&H Q 8hrs transfusion as needed on IV PPI gtt plan for EGD later today CAD /RECENT NSTEMI S/P ALMITA PTCA : ALMITA placed on Diagonal artery on 10/2016 will need uninterrupted Aspirin and Plavix tx for at least 1 yrs D/w Cardiology Dr Bales pt took her AM dose of Plavix today will order for tomorrow dose as well no anginal symptom monitor in tele correct anemia to keep Hb > 10 to prevent demand ischemia /cardiac strain Cardiology consulted -pt is known to Dr Bales HYPOTENSION due to acute blood loss anemia BP improved after PRBC transfusion and IV fluid hold ACEI correct anemia as outlined above FULL CODE rest of the problem list as outlined by Isabel Webb PA-c documentation VTE Prophylaxis VTE Risk Assessment Done? Y/N: Yes Risk Level: Moderate
[2017-01-24 16:52] LABS: HEMATOCRIT 24.2 % (37-47)
[2017-01-24] MEDS ORDERED: FENTANYL CITRATE INJ 50 MCG/1 ML 2 ML VIAL IV PRN (18:30)
[2017-01-24] MEDS ORDERED: ONDANSETRON INJ 2 MG/ML 2 ML VIAL IV PRN (18:30)
[2017-01-24] MEDS ORDERED: ATROPINE SULFATE 0.1 MG/ML 5ML SYR IV PRN (18:30)
[2017-01-24] MEDS ORDERED: EpHEDrine SULFATE INJ 50 MG/ML AMP IV PRN (18:30)
--- NOTE | 2017-01-24 19:04 | GI REPORT ---
Procedure Date: 01/24/2017 6:39 PM Procedure: Upper GI endoscopy Indications: Melena Medicines: General [id number] Complications: No immediate complications. Estimated blood loss: None. Estimated Blood Loss: Estimated blood loss: none. Procedure: Pre-Anesthesia Assessment: - Pre-Anesthesia Assessment: - Prior to the procedure, a History and Physical was performed, and patient medications, allergies and sensitivities were reviewed. The patient's tolerance of previous anesthesia was reviewed. Please see Adpoints for complete details. - The risks and benefits of the procedure and the sedation options and risks were discussed with the patient. All questions were answered and informed consent was obtained. - Patient identification and proposed procedure were verified prior to the procedure by the physician and the nurse. The procedure was verified in the pre-procedure area in the procedure room. After obtaining informed consent, the endoscope was passed carefully and meticuously under direct vision and only advanced when the lumen was clearly identified, C02 insuflation was utilized throughout the entirity of the procedure. Throughout the procedure, the patient's blood pressure, pulse, and oxygen saturations were monitored continuously. After obtaining informed consent, the endoscope was passed under direct vision. Throughout the procedure, the patient's blood pressure, pulse, and oxygen saturations were monitored continuously. The Scope was introduced through the mouth, and advanced to the jejunum. The upper GI endoscopy was accomplished without difficulty. The patient tolerated the procedure well. Findings: The examined esophagus was normal. Evidence of a Benigno-en-Y gastrojejunostomy was found. The gastrojejunal anastomosis was characterized by healthy appearing mucosa with only some very small superficial inflammation around two visible luis as well as one visible suture The examined jejunum was normal. No evidence of active or recent bleeding. Impression: - Normal esophagus. - Benigno-en-Y gastrojejunostomy with gastrojejunal anastomosis characterized by healthy appearing mucosa. - Normal examined jejunum. - No specimens collected. Recommendation: - Return patient to hospital [facility] for ongoing care. - Clear liquid diet. - Perform a colonoscopy tomorrow. - Continue IV PPI at BID Alexi Pedraza MD 01/24/2017 7:03:39 PM This report has been signed electronically. Note Initiated On: 01/24/2017 6:39 PM I attest to the content of the Intraoperative Record and orders documented therein, exceptions below
--- NOTE | 2017-01-24 19:07 | Anesthesiology Progress Note ---
Anesthesia Post Op Note Date & Time Jan 24, 2017 at 19:07 Vital Signs Pain Intensity: 2.0 Vital Signs Past 12 Hours Date Time Temp Pulse Resp B/P Pulse Ox O2 Delivery O2 Flow Rate FiO2 01/24/17 18:00 36.5 77 18 127/86 99 01/24/17 17:15 36.7 77 20 103/67 100 01/24/17 17:00 36.9 81 20 111/66 100 01/24/17 16:59 98 Room Air 01/24/17 16:48 36.7 64 16 112/66 01/24/17 16:06 36.8 82 20 120/77 96 Room Air 01/24/17 15:51 36.8 82 20 120/77 96 01/24/17 15:17 36.8 81 20 110/76 95 01/24/17 14:45 36.7 78 20 104/70 98 01/24/17 14:30 36.3 85 20 93/65 99 01/24/17 14:09 36.8 79 16 95/58 01/24/17 13:43 36.9 82 18 92/60 100 Room Air 01/24/17 13:15 89 15 102/50 100 Room Air 01/24/17 12:23 93 Room Air 01/24/17 11:15 87 19 92/59 Room Air 01/24/17 10:37 91 15 101/54 01/24/17 10:26 95 01/24/17 10:14 36.8 107 18 68/36 93 Room Air Notes Mental Status: alert / awake / arousable, participated in evaluation Pt Amnestic to Procedure: Yes Nausea / Vomiting: adequately controlled Pain: adequately controlled Airway Patency, RR, SpO2: stable & adequate BP & HR: stable & adequate Hydration State: stable & adequate Anesthetic Complications: no major complications apparent
[2017-01-24] MEDS: HYDROmorphone INJ 0.5 MG/0.5 ML SYR IV PRN (19:49)
[2017-01-24] MEDS ORDERED: NURSING VERBAL MED ORDER ONE (20:00)
[2017-01-24] MEDS: POLYETHYLENE (MIRALAX) 17 GM PACK PO SCH (20:09)
[2017-01-24] MEDS: ONDANSETRON INJ 2 MG/ML 2 ML VIAL IV PRN (20:14)
--- NOTE | 2017-01-24 21:06 | Progress Note ---
Progress Note Date of Service Jan 24, 2017. Progress Note ATTENDING ADDENDUM: S/P EGD TONIGHT BY DR AYON The examined esophagus was normal. Evidence of a Benigno-en-Y gastrojejunostomy was found. The gastrojejunal anastomosis was characterized by healthy appearing mucosa with only some very small superficial inflammation around two visible luis as well as one visible suture The examined jejunum was normal. pt is ordered for 2 nd unit of PRBC tonight follow H&H Q 8 hrs next check at 2200 correct anemia to keep Hb > 10 scheduled for colonoscopy tomorrow. bowel prep ordered by GI
[2017-01-24 23:28] LABS: HEMATOCRIT 25.3 % (37-47)
[2017-01-25] VITALS (18 sets, daily range): BP systolic 98–111; BP diastolic 52–73; PULSE 70–108; TEMP 36.4–37; O2SAT 92–100
[2017-01-25] MEDS: PANTOprazole INJ 40 MG in DEXTROSE 5% 100ML IV SCH ×4 (01:16→14:10)
[2017-01-25] MEDS: LORAZEPAM INJ 0.5 MG in SYRINGE 0.75 ML IV PRN ×2 (02:39→17:02)
[2017-01-25] MEDS: POLYETHYLENE (MIRALAX) 17 GM PACK PO SCH (04:55)
[2017-01-25] MEDS ORDERED: POLYETHYLENE (MIRALAX) 17 GM PACK PO SCH (05:00)
[2017-01-25 08:11] LABS: HEMATOCRIT 26.9 % (37-47); MEAN CELL VOLUME 80.1 fL (80-100); MEAN CORPUSCULAR HEMOGLOBIN 28.6 pg (25-34); MEAN CORPUSCULAR HGB CONC 35.7 g/dl (32-36); PLATELET COUNT 131 K/uL (130-400); RED BLOOD COUNT 3.36 M/uL (4.2-5.4); WHITE BLOOD COUNT 5.38 K/uL (4.8-10.8)
[2017-01-25 08:37] LABS: BUN/CREATININE RATIO 32.1 (10-20); CALCIUM 7.8 mg/dl (8.5-10.1); CREATININE 0.56 mg/dl (0.60-1.20); MAGNESIUM 1.9 mg/dl (1.8-2.4); POTASSIUM 3.8 mmol/L (3.5-5.1)
[2017-01-25] MEDS ORDERED: CLOPIDOGREL BISULFATE 75 MG TAB PO SCH (09:00)
[2017-01-25] MEDS ORDERED: LIDOCAINE HCL 2% 2 ML VIAL (20MG/ML) ONE (11:23)
[2017-01-25] MEDS ORDERED: PROPOFOL IV EMULSION 10 MG/ML 20 ML VIAL IV ONE (11:23)
--- NOTE | 2017-01-25 12:00 | Cardiology Consultation ---
Cardiology Consultation Date of Service Jan 25, 2017. (Smitha Maddox, TONY) Cardiology Consultation Cardiology Consultation: Date: 01/25/17 Attending Stone Processing Machine Operator: Dr. Silverio Requesting Physician: Dr. Green SUBJECTIVE: Patient is a 61 year old female who is known to our [facility] service, following with Dr. Silverio as an outpatient. Recent history includes admitted to [facility] 11/06/2016 with NSTEMI. She was taken to the cardiac catheterization lab 11/07/[address] Garcia. Patient found to have 90% proximal diagonal stenosis. She was treated with a drug-eluting stent to the proximal vessel. Post procedure, patient had a change in mental status and bleeding from her radial cath site. A stroke alert was called. Cerebral imaging was negative. She was discharged home. Patient returned to [facility] with recurrent chest discomfort. No significant elevation of troponin or ischemic ECG changes recorded. Resting 2D transthoracic ECHO demonstrated small circumferential pericardial effusion she was diagnosed with post LA pericarditis. She was prescribed aspirin 650 mg twice daily addition to colchicine 0.6 mg twice daily. Due to recurrent chest pain after reduction in ASA, she underwent recent exercise stress echo which was negative for inducible ischemia and no pericardial effusion. ASA was increased to 650 mg in AM and 325 mg in PM, with plans to further reduce to 325 mg BID after 1-2 weeks. Apparently after her stress test, patient began to develop severe left hip pain. She was taking OTC Motrin in "significant quantities". She saw PCP and received a cortisone shot in left hip for bursitis. She has a history of several bouts of bursitis over the last few years. Pain did not improve so patient came to ER for evaluation of left hip pain. On admission, patient was found to have anemia with hbg of 8.6. She underwent EGD which was unremarkable. She has received 3 units of PRBC's with improvement in hbg to 9.7 this AM. She is having colonoscopy today. She has noted bloody stool with bowel prep. Plavix on hold this AM for procedure. At time of consult, primary complaint is ongoing left hip pain. She received pain meds last night resulting in significant nausea. She denies chest pain or SOB. No dizziness, syncope or near syncope. No orthopnea, PND or LE edema. No palpitations. ROS: Pertinent positives as per HPI, all other 10 point review of systems otherwise negative. PMH Reflux esophagitis Generalized osteoarthritis Intestinal postoperative nonabsorption H/O gastric bypass Cataract Mild intermittent asthma Generalized anxiety disorder Classic migraine with aura TMJ History of tobacco use Seasonal affective disorder (HCC) NSTEMI (non-ST elevated myocardial infarction) ([facility]) S/P drug eluting coronary stent placement Social History: Former tobacco abuse smoking 1PPD x 15 years, quit 1979. No alcohol use. . Lives with family PAST SURGICAL HISTORY: 1. Gastric bypass. 2. Cholecystectomy. 3. Hernia repair. FAMILY HISTORY: Mother with coronary disease and coronary artery bypass grafting in her 50s, diabetes, hypertension. Review of patient's allergies indicates: Codeine - Nausea/vomiting Morphine And Related - Nausea/vomiting Nortriptyline -Memory probs, confusion Terazosin Pollen Topamax [Topiramate] Current Outpatient Prescriptions Reported Home Medications Medications Dose Route/Sig Max Daily Dose Days Date Category Co Q-10 (Coenzyme Q10 (Ubidecarenone)) 200 Mg Cap 200 Mg PO DAILY 01/24/17 Reported Multivitamin (Multivitamins) Tab 2 Tab PO DAILY 01/24/17 Reported Ventolin Hfa (Albuterol) 60 Puffs/5400 Mcg Aers 2 Puff INH Q4 PRN 01/24/17 Reported Colchicine 0.6 Mg Tab 0.6 Mg PO BID 01/24/17 Reported Effexor Extended Rel (Venlafaxine Hcl) 75 Mg Capcr 75 Mg PO DAILY 01/24/17 Reported Lipitor (Atorvastatin Calcium) 40 Mg Tab 1 Tab PO DAILY 30 12/15/16 Reported Zestril (Lisinopril) 5 Mg Tab 5 Mg PO DAILY 12/03/16 Reported Plavix (Clopidogrel Bisulfate) 75 Mg Tab 75 Mg PO DAILY 12/03/16 Reported Vitamin D3 (Cholecalciferol) 2,000 Unit Tab 2,000 Units PO BID 11/07/16 Reported Calcium + D (Calcium Carbonate-Vitamin D) 1 Tab Tab 2 Tab PO DAILY 04/29/15 Reported B-12 (Cyanocobalamin) Unknown Strength Tab 2,000 Mcg PO MONTHLY 04/29/15 Reported Prevacid (Lansoprazole) 15 Mg Cap 15 Mg PO DAILY 04/29/15 Reported Magnesium (Magnesium Oxide (Mg Supplement) 400 Mg Cap 400 Mg PO BID 04/29/15 Reported Xanax (Alprazolam) 0.5 Mg Tab 0.5 Mg PO TID PRN 04/29/15 Reported OBJECTIVE/PHYSICAL EXAMINATION: Last 8 Hrs Date Time Temp Pulse Resp B/P Pulse Ox O2 Delivery O2 Flow Rate FiO2 01/25/17 11:05 36.6 98 20 117/66 100 Nasal Cannula 2 01/25/17 10:42 36.6 80 16 109/63 100 01/25/17 08:00 100 Room Air 01/25/17 07:21 37.0 79 16 103/69 100 01/25/17 06:25 36.7 78 18 109/66 100 01/25/17 05:25 36.7 82 16 107/72 100 01/25/17 04:55 36.8 75 18 105/63 99 01/25/17 04:25 36.8 78 16 111/57 99 01/25/17 04:07 36.6 78 18 108/72 100 01/25/17 04:00 Room Air General: NAD, AAO x3, well nourished. Pale. HEENT: Normocephalic. Atraumatic. Conjunctiva pink, no scleral icterus. No carotid bruits, the carotid upstrokes are brisk. No JVD. No HJR Heart: Regular normal S-1 and S-2 no S-3 or S-4 gallop. No murmurs or rubs appreciated. PMI is not displaced. No RV heave. Lungs: Clear bilateral without rales , rhonchi, or wheeze. Abdomen: Normal bowel sounds. Soft. Nontender. No masses or organomegaly. No abdominal bruits. Extremities: No clubbing, cyanosis, or edema. Pulses: radial=2/4, Dorsalis pedis =2/4, posterior tibial=2/4. Neuro: No focal deficits. ASSESSMENT: 1. Anemia with GI bleed -EGD unremarkable -Colonoscopy planned for today -Hbg 9.7 s/p 3 units PRBCs - monitor. Recent NSTEMI keep close to 10. -Plavix on hold for procedure. Await results. -hypotension noted on admission - lisinopril on hold 2. History of Chronic coronary artery disease with recent NSTEMI s/p ALMITA to D1 -clinically stable without exertional angina -atypical chest discomfort has resolved -recent exercise stress echo negative for inducible ischemia -Continue outpatient meds - atorvastatin and resume lisinopril once BP stable 3. 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 Small apical wall motion abnormality post myocardial infarction with preserved LV systolic function 4. Dyslipidemia - well controlled -continue atorvastatin 5. Former tobacco abuse 6. Family history of coronary artery disease (mother with CABG in her 50's) 7. Left hip pain - bursitis? -once anemia work up complete, likely will need further eval of left hip with xrays/ortho consult Case discussed with Dr. Silverio. Will follow. (Smitha Maddox, PA-C) Cardiology Attending Physician: Patient seen and examined at the bedside. C/o nausea w/o vomiting. No CP or SOB. Colonoscopy demonstrated blood throughout the colon. Bleeding scan could not be completed. Currently hemodynamically stable after 3 units PRB\\C's since admission. PE: VSS. GEN: NAD, AAO x3. Heart: regular, normal S1S2, no murmur. Lungs: clear B/L, No R/R/W. Abd: soft, NT, ND, no rebound or guarding. Ext: no edema A/P: Agree with above PA-C history, physical exam, assessment and plan. Antiplatelet therapy on hold due to active bleed. Recommend restart clopidogrel when bleeding controlled secondary to recent ALMITA implantation (11/07/2016). Patient will be transferred to tertiary care facility today for further management. Stevie Silverio DO, FACC (Trever Silverio, DO)
--- NOTE | 2017-01-25 12:19 | GI REPORT ---
Procedure Date: 01/25/2017 11:37 AM Procedure: Colonoscopy Indications: Hematochezia Medicines: Monitored Anesthesia Care Complications: No immediate complications. Estimated blood loss: Minimal. Estimated Blood Loss: Estimated blood loss was minimal. Procedure: Pre-Anesthesia Assessment: - Prior to the procedure, a History and Physical was performed, and patient medications, allergies and sensitivities were reviewed. The patient's tolerance of previous anesthesia was reviewed. - The risks and benefits of the procedure and the sedation options and risks were discussed with the patient. All questions were answered and informed consent was obtained. - Patient identification and proposed procedure were verified prior to the procedure by the physician, the nurse and the er nurse. The procedure was verified in the procedure room. - Pre-procedure physical examination revealed no contraindications to sedation. - ASA Grade Assessment: III - A patient with severe systemic disease. - After reviewing the risks and benefits, the patient was deemed in satisfactory condition to undergo the procedure. - The anesthesia plan was to use monitored anesthesia care (MAC). - Immediately prior to administration of medications, the patient was re-assessed for adequacy to receive sedatives. - The heart rate, respiratory rate, oxygen saturations, blood pressure, adequacy of pulmonary ventilation, and response to care were monitored throughout the procedure. - The physical status of the patient was re-assessed after the procedure. After I obtained informed consent, the scope was passed under direct vision. Throughout the procedure, the patient's blood pressure, pulse, and oxygen saturations were monitored continuously. The scope was introduced through the anus and advanced to the cecum, identified by appendiceal orifice and ileocecal valve. The colonoscopy was performed with difficulty due to poor bowel prep. Successful completion of the procedure was aided by applying abdominal pressure and lavage. The patient tolerated the procedure well. The quality of the bowel preparation was poor. Findings: The perianal and digital rectal examinations were normal. Pertinent negatives include normal sphincter tone. Multiple small and large-mouthed diverticula were found in the sigmoid colon and in the descending colon. Red blood was found in the entire colon. Impression: - Preparation of the colon was poor. - Moderate diverticulosis in the sigmoid colon and in the descending colon. - Blood in the entire examined colon. Based on apperance suspect bleeding may be from a small intestinal estiology. Recommendation: - Return patient to hospital [facility] for ongoing care. - Do a GI bleeding (tagged RBC) scan today. - Consider a referral to a tertiary center as patient may need angiography Stacey Dallas D.O. Stacey Dallas, 01/25/2017 12:18:18 PM This report has been signed electronically. Note Initiated On: 01/25/2017 11:37 AM I attest to the content of the Intraoperative Record and orders documented therein, exceptions below
--- NOTE | 2017-01-25 13:23 | Anesthesiology Progress Note ---
Anesthesia Post Op Note Date & Time Jan 25, 2017 at 13:23 Vital Signs Pain Intensity: 0 Vital Signs Past 12 Hours Date Time Temp Pulse Resp B/P Pulse Ox O2 Delivery O2 Flow Rate FiO2 01/25/17 12:47 77 16 104/53 100 Room Air 01/25/17 12:38 85 16 87/52 100 Room Air 01/25/17 12:29 77 16 111/60 100 Room Air 01/25/17 12:23 78 16 107/55 100 Room Air 01/25/17 12:18 76 16 106/55 100 Room Air 01/25/17 11:05 36.6 98 20 117/66 100 Nasal Cannula 2 01/25/17 10:42 36.6 80 16 109/63 100 01/25/17 08:00 100 Room Air 01/25/17 07:21 37.0 79 16 103/69 100 01/25/17 06:25 36.7 78 18 109/66 100 01/25/17 05:25 36.7 82 16 107/72 100 01/25/17 04:55 36.8 75 18 105/63 99 01/25/17 04:25 36.8 78 16 111/57 99 01/25/17 04:07 36.6 78 18 108/72 100 01/25/17 04:00 Room Air Notes Mental Status: alert / awake / arousable, participated in evaluation Pt Amnestic to Procedure: Yes Nausea / Vomiting: adequately controlled Pain: adequately controlled Airway Patency, RR, SpO2: stable & adequate BP & HR: stable & adequate Hydration State: stable & adequate Anesthetic Complications: no major complications apparent
[2017-01-25] MEDS: ONDANSETRON INJ 2 MG/ML 2 ML VIAL IV PRN (14:13)
[2017-01-25] MEDS: HYDROmorphone INJ 0.5 MG/0.5 ML SYR IV PRN (14:15)
--- NOTE | 2017-01-25 14:23 | Progress Note ---
Progress Note Date of Service Jan 25, 2017. Progress Note ATTENDING NOTE : UPDATED FORM DR ARACELIS CARLOS GI : Colonoscopy showed Red blood was found in the entire colon. - Moderate diverticulosis in the sigmoid colon and in the descending colon. - Blood in the entire examined colon. Based on appearance suspect bleeding may be from a small intestinal etiology. Recommend - GI bleeding (tagged RBC) scan today. need to transfer to tertiary center /[facility] as may need angiography pt continues to have GI bleed Plavix been on hold this AM by Cardiology repeat H&H ordered ordered to transfuse one more unit of PRBC will contact [facility] for transfer
[2017-01-25 14:24] LABS: HEMATOCRIT 27.1 % (37-47)
[2017-01-25] MEDS ORDERED: PROTONIX IV (18:19)
[2017-01-25] MEDS ORDERED: ATVI IV (18:19)
--- NOTE | 2017-01-25 18:21 | Discharge Instructions ---
Discharge Instructions Admission Reason for Admission: Acute Gi Bleeding Discharge Discharge Diagnosis / Problem: ACUTE GI BLEED /NSAID INDUCED /CAD S/P ALMITA STENT ON 10/2016 Discharge Goals Goal(s): Diagnostic testing, Therapeutic intervention Activity Recommendations Activity Limitations: as noted below ( TOLERATED ) . Instructions / Follow-Up Instructions / Follow-Up PT IS BEING TRANSFERRED TO [facility] ACCEPTING PHYSICIAN DR DANIELA HWANG [facility]ITAL[facility] Current Hospital Diet Patient's current hospital diet: NPO Discharge Diet Recommended Diet: N/A (NPO) Procedures Procedures Performed: ESOPHAGOGASTRDUODENOSCOPY COLONOSCOPY Pending Studies Studies pending at discharge: no Laboratory Results Lipid Panel Test 11/07/16 07:00 Range/Units Triglycerides Level 61 0-150 mg/dl Cholesterol Level 171 0-200 mg/dl HDL Cholesterol 75 mg/dl Cholesterol/HDL Ratio 2.3 LDL Cholesterol, Calculated 84 mg/dl Medical Emergencies . Who to Call and When: Medical Emergencies: If at any time you feel your situation is an emergency, please call 911 immediately. . Non-Emergent Contact Non-Emergency issues call your: Primary Care Provider . . "Provider Documentation" section prepared by Chelo Green. VTE Core Measure Inpt VTE Proph given/why not?: Doug Johnson, SCD's
--- NOTE | 2017-01-25 18:26 | Discharge Summary ---
Discharge Summary Date of Service Jan 25, 2017. Discharge Summary Admission Date: Jan 24, 2017 at 12:10 Discharge Date: Jan 25, 2017 Discharge Disposition: Acute care facility ([facility] ) Principal Diagnosis: ACUTE GI BLEED /NSAID INDUCED /CAD S/P ALMITA STENT ON 10/2016 Procedures: EGD COLONOSCOPY Consultations: [facility] Medication Reconciliation New Medications: [Protonix ] () 40 MG IV Q12 Lorazepam (Lorazepam) 2 Mg/Ml Inj 0.5 MG IV Q8 PRN for anxiety /insomnia for 10 Days Continued Medications: Albuterol (Ventolin Hfa) 60 Puffs/5400 Mcg Aers 2 PUFF INH Q4 PRN for Wheezing Discontinued Medications: Alprazolam (Xanax) 0.5 Mg Tab 0.5 MG PO TID PRN for Anxiety/Agitation, TAB Atorvastatin (Lipitor) 40 Mg Tab 1 TAB PO DAILY for 30 Days, #30 TAB 5 Refills Calcium Carbonate-Vitamin D (Calcium + D) 1 Tab Tab 2 TAB PO DAILY Cholecalciferol (Vitamin D3) 2,000 Unit Tab 2000 UNITS PO BID Clopidogrel (Plavix) 75 Mg Tab 75 MG PO DAILY, TAB Coenzyme Q10 (Ubidecarenone) (Co Q-10) 200 Mg Cap 200 MG PO DAILY Colchicine (Colchicine) 0.6 Mg Tab 0.6 MG PO BID, TAB Cyanocobalamin (B-12) Unknown Strength Tab 2000 MCG PO MONTHLY Lansoprazole (Prevacid) 15 Mg Cap 15 MG PO DAILY, CAP Lisinopril (Zestril) 5 Mg Tab 5 MG PO DAILY, TAB Magnesium Oxide (Mg Supplement (Magnesium) 400 Mg Cap 400 MG PO BID Multivitamin (Multivitamin) Tab 2 TAB PO DAILY, TAB Venlafaxine Hcl (Effexor Extended Rel) 75 Mg Capcr 75 MG PO DAILY, CAP Admission Information HPI (per Admitting provider): This is a 61 y/o female with PMHx of CAD s/p stent placement, HTN, Dyslipidemia , GERD and other problems as outlined below who presents to the ED c/o hematochezia that began yesterday. Pt reports that yesterday she noticed bright red blood in her stool. She has had 4 bowel movements since that time and this morning states it was "all blood". Sxs are assoc with weakness/fatigue, mild exertional SOB, nausea and lightheadedness. Pt was diagnosed with L hip bursitis 3 days ago. She has been taking ASA and Ibuprofen "around the clock" every 4 hours for the past few days. Pt denies history of GI bleed and has never required a transfusion. Patient also has a history of CAD and had one stent placed in October 2016. She takes ASA and Plavix. Pt denies fever/chills , diaphoresis, chest pain, abd pain, vomiting, bladder issues, LE edema or calf pain. In the ED, patient is tachy and hypotensive on arrival. HgB 8.6. Pt will be admitted for further evaluation and treatment. Physical Exam (per Admitting): General Appearance: WD/WN, no apparent distress, + pertinent finding (Pt is sitting up in bed with at bedside ) Head: normocephalic, atraumatic Eyes: normal inspection ENT: hearing grossly normal Neck: supple Respiratory/Chest: chest non-tender, lungs clear, normal breath sounds, no respiratory distress Cardiovascular: regular rate, rhythm, no edema, no murmur Abdomen/GI: normal bowel sounds, non tender, soft Back: normal inspection Extremities/Musculoskelatal: normal inspection, no calf tenderness, no pedal edema Neurologic/Psych: alert, normal mood/affect, oriented x 3 Skin: normal color, warm/dry Hospital Course 61 yo F hx of CAD -recent NSTEMI on Oct 2016 had ALMITA placed on D1 ( diagonal artery ) ECHO shows preserved LV function EF 55 -60 % with regional wall motion abnormalities involving the mid and apical lateral and anterior wall pt was started on dual antiplatelet _Aspirin /Plavix pt later developed most CO Pericarditis -Aspirin dose was increased to full strength with addition of Colchicine Developed left hip pain few days back was evaluated by Family Physician thought to have possible left hip bursitis had steroid injection with minimum relief started to take Ibuprofen 400 gm q 4hrs in addition of taking Aspirin and Plavix mentions not able to have much PO intake in past 3 days due to severe Left hip pain developed melanotic stool yesterday X3 , with one episode of Bright red blood per rectum associated with Dizzy spell , lightheadedness, nausea -no vomiting no complain of chest pain no syncope on arrival to ED ,had one episode of melena was found to be hypotensive, tachycardic , Hb ~ 8 ( hb in 10/2016 was ~13 ) P/E: gen :no apparent distress , very pale HEENT ; sclera non icteric Lungs; CTA HT : regular Lungs: CTA abdomen ; soft, no epigastric tenderness, bowel sound active Ext ; trace bilat lower ext edema . superficial bruise /ecchymosis at left hip area -steroid injection site Neuro: no focal deficit A/P : MELENA /GI BLEED : possible upper GI bleed NSAID's induced -on dual antiplatelet tx due to ALMITA taking Motrin for left hip pain appreciate GI eval S/P EGD : no active bleeding noted Colonoscopy showed Red blood was found in the entire colon. - Moderate diverticulosis in the sigmoid colon and in the descending colon. - Blood in the entire examined colon. Based on appearance suspect bleeding may be from a small intestinal etiology. Recommend - GI bleeding (tagged RBC) scan today. need to transfer to tertiary center /[facility] as may need angiography pt continues to have GI bleed Plavix been on hold this AM by Cardiology contacted [facility] for transfer ACUTE BLOOD LOSS ANEMIA : due to above S/P 4 units of PRBC transfusion CAD /RECENT NSTEMI S/P ALMITA PTCA : ALMITA placed on Diagonal artery on 10/2016 will need uninterrupted Aspirin and Plavix tx for at least 1 yrs correct anemia to keep Hb > 10 to prevent demand ischemia /cardiac strain HYPOTENSION due to acute blood loss anemia BP improved after PRBC transfusion and IV fluid hold ACEI correct anemia as outlined above FULL CODE DISPOSITION : transfer to [facility] [place] [place] . [facility] for IR guided angiography of and possible embolization of active GI bleed Accepting Physician Dr Suarez case updated to [facility] [place] GI team Total time spent on discharge = 40 MINS This includes examination of the patient, discharge planning, medication reconciliation, and communication with other providers. Discharge Instructions DI: Medical v4 Discharge Instructions Admission Reason for Admission: Acute Gi Bleeding Discharge Discharge Diagnosis / Problem: ACUTE GI BLEED /NSAID INDUCED /CAD S/P ALMITA STENT ON 10/2016 Discharge Goals Goal(s): Diagnostic testing, Therapeutic intervention Activity Recommendations Activity Limitations: as noted below ( TOLERATED ) . Instructions / Follow-Up Instructions / Follow-Up PT IS BEING TRANSFERRED TO [facility] ACCEPTING PHYSICIAN DR SUAREZ -[facility] HOSPITALIST Current Hospital Diet Patient's current hospital diet: NPO Discharge Diet Recommended Diet: N/A (NPO) Procedures Procedures Performed: ESOPHAGOGASTRDUODENOSCOPY COLONOSCOPY Pending Studies Studies pending at discharge: no Laboratory Results Lipid Panel Test 11/07/16 07:00 Range/Units Triglycerides Level 61 0-150 mg/dl Cholesterol Level 171 0-200 mg/dl HDL Cholesterol 75 mg/dl Cholesterol/HDL Ratio 2.3 LDL Cholesterol, Calculated 84 mg/dl Medical Emergencies . Who to Call and When: Medical Emergencies: If at any time you feel your situation is an emergency, please call 911 immediately. . Non-Emergent Contact Non-Emergency issues call your: Primary Care Provider . . "Provider Documentation" section prepared by Chelo Green. VTE Core Measure Inpt VTE Proph given/why not?: Doug Johnson, SCD's
[2017-01-25] MEDS ORDERED: ACETAMINOPHEN IV 650 MG in EMPTY BAG 0 ML IV PRN (18:30)
[2017-01-25] MEDS ORDERED: PANTOprazole INJ 40 MG in SYRINGE 0 ML IV SCH (21:00)
[2017-01-26] MEDS: LORAZEPAM INJ 0.5 MG in SYRINGE 0.75 ML IV PRN (02:06)
[2017-01-26] MEDS ORDERED: ATORVASTATIN 40 MG TAB PO SCH (09:00)
[2017-01-26] MEDS ORDERED: COLCHICINE 0.6 MG TAB PO SCH (09:00)
[2017-02-10] MEDS ORDERED: PRVHFAIN INH (12:14)
[2017-02-14] MEDS ORDERED: TRAM-10 PO (14:50)
== END 2017-01-26 02:57 | disposition short-term general hospital (02) | DRG 378 ==
LOC: ENRESERVDT → ENRESERVTM → C.EDB 09:52 → C.MED 12:10
PROVIDERS: ADMIT Hospitalist; ATTEND Hospitalist
PROC: 0DJ08ZZ Inspection of Upper Intestinal Tract, Via Natural or Artificial Opening Endoscopic (ICD-10-PCS; principal; 2017-01-24 18:23)
PROC: 0DJD8ZZ Inspection of Lower Intestinal Tract, Via Natural or Artificial Opening Endoscopic (ICD-10-PCS; 2017-01-25)
DX: K57.31 Diverticulosis of large intestine without perforation or abscess with bleeding (principal); D62 Acute posthemorrhagic anemia; I25.10 Atherosclerotic heart disease of native coronary artery without angina pectoris; Z95.5 Presence of coronary angioplasty implant and graft; I10 Essential (primary) hypertension; E78.5 Hyperlipidemia, unspecified; K21.9 Gastro-esophageal reflux disease without esophagitis; Z79.82 Long term (current) use of aspirin; Z79.899 Other long term (current) drug therapy; Z79.1 Long term (current) use of non-steroidal anti-inflammatories (NSAID); J45.909 Unspecified asthma, uncomplicated; F32.9 Major depressive disorder, single episode, unspecified; I25.2 Old myocardial infarction; E66.9 Obesity, unspecified; Z68.29 Body mass index [BMI] 29.0-29.9, adult; G47.30 Sleep apnea, unspecified; Z98.84 Bariatric surgery status; Z90.49 Acquired absence of other specified parts of digestive tract; Z82.49 Family history of ischemic heart disease and other diseases of the circulatory system; Z82.0 Family history of epilepsy and other diseases of the nervous system; Z87.891 Personal history of nicotine dependence; Z88.8 Allergy status to other drugs, medicaments and biological substances; Z88.5 Allergy status to narcotic agent; Z79.02 Long term (current) use of antithrombotics/antiplatelets; I95.9 Hypotension, unspecified; Z83.3 Family history of diabetes mellitus; J45.20 Mild intermittent asthma, uncomplicated; F41.1 Generalized anxiety disorder; G43.109 Migraine with aura, not intractable, without status migrainosus; M26.609 Unspecified temporomandibular joint disorder, unspecified side; T39.395A Adverse effect of other nonsteroidal anti-inflammatory drugs [NSAID], initial encounter; M25.552 Pain in left hip

== ENCOUNTER 2017-02-10 14:14 | Inpatient (IN) | payer OTHER ==
[~2017-02-10] VITALS: Ht 154.9 cm; Wt 62.4 kg
[~2017-02-10 14:14] MED LIST changes: -ALBUAER2 INH; -ALPR-411 PO; -ATOR-24 PO; +ATVI IV; -CALC600T9 PO; -CHOL20007 PO; -CLOP1TAB15 PO; -CYAN1TAB17 PO; -LANS15CA15 PO; -LISI-729 PO; -MAGN1CAP2 PO; -MULT-614 PO; +PROTONIX IV; +PRVHFAIN INH; -UBIQ1CAP PO; -VENL1CAP92 PO
[2017-02-10] MEDS ORDERED: SODIUM CHLORIDE 0.9% 1000ML 1,000 ML IV STA (15:13)
[2017-02-10 15:28] LABS: ISTAT CREATININE 0.8 mg/dl (0.6-1.3); ISTAT HEMOGLOBIN 12.2 g/dl (12.0-16.0); ISTAT IONIZED CALCIUM 1.14 mmol/l (1.12-1.32)
[2017-02-10 15:38] LABS: BASO % 0.4 %; BASO ABS # 0.03 K/uL (0-0.2); COMPLETE YES; EOS % 0.5 %; HEMATOCRIT 34.8 % (37-47); IG% 0.4 %; LYMPH % 21.6 %; LYMPH ABS # 1.74 K/uL (1.2-3.4); MEAN CELL VOLUME 86.4 fL (80-100); MEAN CORPUSCULAR HEMOGLOBIN 28.3 pg (25-34); MEAN CORPUSCULAR HGB CONC 32.8 g/dl (32-36); MEAN PLATELET VOLUME 9.8 fL (7.4-10.4); MONO % 4.8 %; NEUT % 72.3 %; PLATELET COUNT 607 K/uL (130-400); RED BLOOD COUNT 4.03 M/uL (4.2-5.4); WHITE BLOOD COUNT 8.05 K/uL (4.8-10.8)
[2017-02-10 15:47] LABS: INR 0.9 (0.9-1.1); PARTIAL THROMBOPLASTIN RATIO 0.9
--- NOTE | 2017-02-10 15:49 | DIAGNOSTIC IMAGING REPORT ---
CHEST ONE VIEW PORTABLE CLINICAL HISTORY: EVALUATE GI BLEED dyspnea COMPARISON STUDY: No previous studies for comparison. FINDINGS: Mild emphysematous change. Diaphragms smooth. There are no focal infiltrative changes. Pleural scar left upper lung unchanged. IMPRESSION: Mild emphysematous change. No acute process. Electronically signed by: Cam Whittington M.D. 02/10/2017 3:47 PM Dictated Date/Time: 02/10/2017 3:46 PM
[2017-02-10] MEDS ORDERED: ATOR-24 PO (15:51)
[2017-02-10] MEDS ORDERED: MAGN400T6 PO (15:51)
[2017-02-10] MEDS ORDERED: TRAM-10 PO (15:51)
[2017-02-10] MEDS ORDERED: CLOP1TAB15 PO (15:51)
[2017-02-10] MEDS ORDERED: VENL75CA PO (15:51)
[2017-02-10] MEDS ORDERED: NTRGSL/4 UT (15:51)
[2017-02-10] MEDS ORDERED: PRLSR20 PO (15:51)
[2017-02-10] MEDS ORDERED: LISI-729 PO (15:51)
[2017-02-10] MEDS ORDERED: CHOL100027 PO (15:51)
[2017-02-10] MEDS ORDERED: ASPI81TA28 PO (15:51)
[2017-02-10] MEDS ORDERED: MULT-513 PO (15:51)
[2017-02-10] MEDS ORDERED: ALPR-411 PO (15:51)
[2017-02-10] MEDS ORDERED: CALCTAB7 PO (15:51)
[2017-02-10] MEDS ORDERED: UBIQ1CAP8 PO (15:51)
[2017-02-10] MEDS ORDERED: CYAN10005 PO (15:51)
[2017-02-10] MEDS ORDERED: COLC0.6T54 PO (15:51)
[2017-02-10 16:06] LABS: ALT/SGPT 28 U/L (12-78); AST/SGOT 17 U/L (15-37); BLOOD UREA NITROGEN 22 mg/dl (7-18); BUN/CREATININE RATIO 23.1 (10-20); CALCIUM 9.3 mg/dl (8.5-10.1); CARBON DIOXIDE 23 mmol/L (21-32); CHLORIDE 107 mmol/L (98-107); CREATININE 0.97 mg/dl (0.60-1.20); GLUCOSE 114 mg/dl (70-99); POTASSIUM 3.5 mmol/L (3.5-5.1); SODIUM 141 mmol/L (136-145)
[2017-02-10 16:11] LABS: ALKALINE PHOSPHATASE 105 U/L (45-117)
[2017-02-10] MEDS ORDERED: ALBUTEROL HFA 8 GM INHALER INH PRN (18:15)
[2017-02-10] MEDS ORDERED: PANTOprazole INJ 80 MG in DEXTROSE 5% 100ML IV SCH (18:30)
[2017-02-10] MEDS: SODIUM CHLORIDE 0.9% 1000ML 1,000 ML IV SCH (19:00)
[2017-02-10] MEDS: PANTOprazole INJ 40 MG in DEXTROSE 5% 100ML IV SCH ×2 (19:00→22:48)
--- NOTE | 2017-02-10 19:21 | History and Physical ---
History & Physical Date & Time of Service: Feb 10, 2017 at 18:45 Chief Complaint: Black Stool Primary Care Physician: Danilo Perez M.D. History of Present Illness Source: patient, clinic records, hospital records Patient is a 61 y/o female with multiple medical problems who presents with melena. Patient was recently hospitalized at [facility] from 01/24-01/26 and was then transferred to [facility] from 01/26-02/04 for melena. Patient was evaluated by GI, Cardiology and Rheumatology. Patient had an EGD here that was unremarkable and a colonoscopy that showed blood throughout the colon. Patient required blood transfusions. Patient was transferred to [facility], where she had a lower enteroscopy which demonstrated two small localized angiodysplastic lesions without bleeding in the proximal ascending colon and cecum. These were cauterized, although they were not felt to be the source of bleeding as blood had been seen proximal to these lesions. Patient also had a left hip steroid injection done by Rheum while hospitalized. Patient was resumed on Plavix and aspirin was decreased to 81mg daily; patient had a recent ALMITA placed in 2015. Pantoprazole was also changed to omeprazole. Patient notes that she had been doing relatively well since discharge until today, when she noticed black stools. The first BM was black and formed, but subsequent BM's were black, loose and sticky. She adamantly denies taking any NSAIDs. She has been taking tramadol PRN for her hip pain. She denies any abdominal pain. In the ED, patient was tachycardic and hypotensive, which improved with IVF's. Hgb was ~11. Past Medical/Surgical History Medical Problems: (1) Anxiety Status: Chronic (2) Asthma Status: Chronic (3) Depression Status: Chronic (4) GERD (gastroesophageal reflux disease) Status: Chronic (5) Hyperlipidemia Nec/Nos Status: Chronic (6) Hypertension Nos Status: Chronic (7) Migraine Status: Chronic (8) Non-STEMI (non-ST elevated myocardial infarction) Status: Chronic (9) Obesity, Nos Status: Chronic (10) Sleep apnea Permanent Comment: CPAP Status: Chronic Surgical Problems: (1) Gastric bypass status for obesity Status: Chronic (2) S/P cholecystectomy Status: Chronic (3) S/P hernia repair Status: Chronic Family History ALS (amyotrophic lateral sclerosis) SISTER Coronary artery disease MOTHER (CABG / age 53) Hypertension MOTHER Social History Smoking Status: Former Smoker Drug Use: none Marital Status: Housing status: lives with family Occupational Status: employed Immunizations History of Influenza Vaccine: No History of Tetanus Vaccine?: No History of Pneumococcal: No History of Hepatitis B Vaccine: Yes Hepatitis Immunization Date: May 14, 1990 Multi-Drug Resistant Organisms History of MDRO: No Allergies Coded Allergies: Hydromorphone (Verified Allergy, Severe, GI SYMPTOMS, 02/10/17) Nortriptyline (Verified Allergy, Severe, MEMORY PROBLEMS, CONFUSION, ) Topiramate (Verified Allergy, Severe, MEMORY PROBLEMS, CONFUSION, 02/10/17) Morphine (Verified Adverse Reaction, Intermediate, nausea, 12/03/16) Codeine (Verified Adverse Reaction, Mild, NAUSEA, 12/03/16) Terazosin (Verified Adverse Reaction, Mild, NAUSEA, 12/03/16) Home Medications Scheduled Aspirin (Aspirin Ec), 81 MG PO DAILY Atorvastatin (Lipitor), 40 MG PO DAILY Calcium Carbonate-Vitamin D W/ (Caltrate 600 Plus), 1 TAB PO BID Cholecalciferol (Vitamin D 1000 Unit), 3,000 INTER.UNIT PO DAILY Clopidogrel (Plavix), 75 MG PO DAILY Colchicine (Colchicine), 0.6 MG PO BID Cyanocobalamin (Vitamin B-12), 2,500 MCG PO MONTHLY Lisinopril (Prinivil), 5 MG PO DAILY Magnesium Oxide (Mag-Ox), 400 MG PO DAILY Multivitamins/Minerals (Mvi With Minerals), 1 TAB PO DAILY Nitroglycerin (Nitrostat), 0.4 MG UT PRN Omeprazole (Prilosec), 20 MG PO DAILY Ubiquinol (Ubiquinol), 200 MG PO DAILY Venlafaxine Hcl (Effexor Xr), 1 CAP PO DAILY Scheduled PRN Albuterol (Ventolin Hfa), 2 PUFF INH Q4 PRN for Wheezing Alprazolam (Xanax), 0.5 MG PO TID PRN for Anxiety Tramadol (Ultram), 50 MG PO Q6 PRN for Pain Review of Systems Constitutional- denies fever or chills; denies headache Eyes- denies vision changes ENT- +sore throat; denies congestion Pulmonary- +SOB; denies cough Cardiac- denies chest pain; +palpitations GI- denies abdominal pain, nausea, vomiting; +melena; no BRBPR; +heartburn - denies dysuria or hematuria Musculoskeletal- denies joint swelling; +left hip pain Dermatologic- denies rash or easy bruising Neuro- denies focal weakness, numbness or tingling Psych- denies depression or anxiety . Physical Exam Vital Signs Date Time Temp Pulse Resp B/P Pulse Ox O2 Delivery O2 Flow Rate FiO2 02/10/17 18:25 83 20 109/68 99 Room Air 02/10/17 18:25 78 18 109/68 98 Room Air 02/10/17 16:40 84 13 94/56 100 Room Air 02/10/17 16:33 81 02/10/17 15:42 173/92 148/84 02/10/17 15:30 99 Room Air 02/10/17 15:30 94 20 107/77 98 Room Air 02/10/17 14:52 113 106/74 02/10/17 14:34 36.8 131 18 87/58 100 Room Air General- awake; alert; NAD Eyes- EOMI; no scleral icterus Neck- no stridor; trachea midline Lungs- CTA bilaterally; no wheezes/crackles Heart- RRR; no m/r/g Abdomen- soft; NTND; nBS Back- no gross abnormalities Extremities- no c/c/e; no deformity Neuro- no focal deficits Skin- no appreciable rash or bruises . Diagnostics Laboratory Results Results Past 24 Hours Test 02/10/17 15:08 02/10/17 15:15 Range/Units White Blood Count 8.05 4.8-10.8 K/uL Red Blood Count 4.03 4.2-5.4 M/uL Hemoglobin 11.4 12.0-16.0 g/dL Hematocrit 34.8 37-47 % Mean Corpuscular Volume 86.4 80-100 fL Mean Corpuscular Hemoglobin 28.3 25-34 pg Mean Corpuscular Hemoglobin Concent 32.8 32-36 g/dl Platelet Count 607 130-400 K/uL Mean Platelet Volume 9.8 7.4-10.4 fL Neutrophils (%) (Auto) 72.3 % Lymphocytes (%) (Auto) 21.6 % Monocytes (%) (Auto) 4.8 % Eosinophils (%) (Auto) 0.5 % Basophils (%) (Auto) 0.4 % Neutrophils # (Auto) 5.82 1.4-6.5 K/uL Lymphocytes # (Auto) 1.74 1.2-3.4 K/uL Monocytes # (Auto) 0.39 0.11-0.59 K/uL Eosinophils # (Auto) 0.04 0-0.5 K/uL Basophils # (Auto) 0.03 0-0.2 K/uL RDW Standard Deviation 49.7 36.4-46.3 fL RDW Coefficient of Variation 15.9 11.5-14.5 % Immature Granulocyte % (Auto) 0.4 % Immature Granulocyte # (Auto) 0.03 0.00-0.02 K/uL Prothrombin Time 10.0 9.0-12.0 SECONDS Prothromb Time International Ratio 0.9 0.9-1.1 Activated Partial Thromboplast Time 22.4 21.0-31.0 SECONDS Partial Thromboplastin Ratio 0.9 Sodium Level 141 136-145 mmol/L Potassium Level 3.5 3.5-5.1 mmol/L Chloride Level 107 98-107 mmol/L Carbon Dioxide Level 23 21-32 mmol/L Anion Gap 11.0 20.0 16-25 mmol/L Blood Urea Nitrogen 22 7-18 mg/dl Creatinine 0.97 0.60-1.20 mg/dl Estimated GFR () 72.5 Estimated GFR (Non- 62.6 BUN/Creatinine Ratio 23.1 10-20 Random Glucose 114 70-99 mg/dl Calcium Level 9.3 8.5-10.1 mg/dl Total Bilirubin 0.3 0.2-1 mg/dl Direct Bilirubin 0.1 0-0.2 mg/dl Aspartate Amino Transf (AST/SGOT) 17 15-37 U/L Alanine Aminotransferase (ALT/SGPT) 28 12-78 U/L Alkaline Phosphatase 105 45-117 U/L Troponin I < 0.015 0-0.045 ng/ml Total Protein 7.3 6.4-8.2 gm/dl Albumin 3.9 3.4-5.0 gm/dl Lipase 97 73-393 U/L Bedside Hemoglobin 12.2 12.0-16.0 g/dl Bedside Hematocrit 36 37-47 % Bedside Sodium 140 135-144 mEq/L Bedside Potassium 3.5 3.3-5.0 mEq/L Bedside Chloride 104 101-112 mEq/L Bedside Total CO2 20 24-31 mEq/l Bedside Blood Urea Nitrogen 22 7-18 mg/dl Bedside Creatinine 0.8 0.6-1.3 mg/dl Bedside Glucose (other) 124 70-99 mg/dl Bedside Ionized Calcium ([place]) 1.14 1.12-1.32 mmol/l Diagnostic Radiology CXR Mild emphysematous change. No acute process. EKG No acute ischemic changes Impression Assessment and Plan Patient is a 61 y/o female who presents for evaluation of melena. Melena - GI consulted - start pantoprazole drip - clear liquid diet tonight; NPO after midnight - monitor Hgb; no indication for transfusion at this time - hold aspirin and clopidogrel for now until ok with GI to restart Hypotension, Tachycardia - likely related to melena - improving with IVF's - hold lisinopril CAD s/p ALMITA (10/2016) - hold aspirin and clopidogrel for now until ok with GI to restart - hold lisinopril given hypotension on admission - hold atorvastatin until patient taking PO Left hip OA - continue tramadol PRN - avoid NSAIDs - PT evaluation Anxiety - hold venlafaxine until taking PO DVT prophylaxis with SCD's. VTE Prophylaxis VTE Risk Assessment Done? Y/N: Yes Risk Level: Moderate
[2017-02-10] MEDS: TRAMADOL HCL 50 MG TAB PO PRN (19:34)
[2017-02-10 21:23] LABS: URINE APPEARANCE CLEAR (CLEAR); URINE BILIRUBIN NEG (NEG); URINE COLOR YELLOW; URINE NITRITE NEG (NEG); URINE SPECIFIC GRAVITY 1.008 (1.000-1.030); UROBILINOGEN NEG (NEG)
[2017-02-10 21:26] LABS: MANUAL MICROSCOPIC REQUIRED? NO; REVIEW REQ? NO
[2017-02-10 22:45] VITALS: BP 112/55; PULSE 98; TEMP 36.8; O2SAT 100; Ht 154.9 cm; Wt 62.4 kg
--- NOTE | 2017-02-10 23:40 | EMERGENCY ROOM VISIT NOTE ---
History Report prepared by Juan Alberto: Rip Rodriguez Under the Supervision of: Dr. Logan Rubin M.D. First contact with patient: 15:13 Chief Complaint: GI ASSESSMENT Stated Complaint: BLACK STOOL Nursing Triage Summary: pt to the ED with c/o black stool today with SOB and dizziness History of Present Illness The patient is a 61 year old female who presents to the Emergency Room with complaints of worsening melena and abdominal pain starting earlier this afternoon. The patient states that she has recently been to [facility] due to similar black stool, and she states that they found three different lesions, and she had many different tests done. She states that the lower ones were cauterized. The patient states that she went to [place] for black stool, and it had not turn red yet, and today it has not been red. The patient additionally complains of weakness, shortness of breath, abdominal pain, and a sorethroat. The patient states that it feels like she constantly has to go to the bathroom. She additionally states that she has some hip pain, however this could be due to laying down for an extended period of time. The patient additionally states that moving around worsens her symptoms. The patient additionally states that she had a blood transfusion done here, and at [facility] she had 6 blood transfusions. Pt denies LOC, headache, fevers, chills, diaphoresis, visual changes, neck pain, chest pain, nausea, vomiting, back pain , hematochezia, urinary symptoms, numbness, lymphadenopathy, rash, or other complaints. Source of History: patient Onset: this afternoon Position: abdomen Timing: worsening Modifying Factors (Worsening): movement Associated Symptoms: + SOB, + abdominal pain, + sorethroat, + weakness Review of Systems See HPI for pertinent positives and negatives. A total of ten systems were reviewed and were otherwise negative. Past Medical & Surgical Medical Problems: (1) Anxiety (2) Asthma (3) Depression (4) GERD (gastroesophageal reflux disease) (5) Hyperlipidemia Nec/Nos (6) Hypertension Nos (7) Melena (8) Migraine (9) Non-STEMI (non-ST elevated myocardial infarction) (10) Obesity, Nos (11) Sleep apnea Surgical Problems: (1) Gastric bypass status for obesity (2) S/P cholecystectomy (3) S/P hernia repair Family History ALS (amyotrophic lateral sclerosis) SISTER Coronary artery disease MOTHER (CABG / age 53) Hypertension MOTHER Social History Smoking Status: Former Smoker Alcohol Use: none Drug Use: none Marital Status: Housing Status: lives with family Occupation Status: employed Current/Historical Medications Scheduled Aspirin (Aspirin Ec), 81 MG PO DAILY Atorvastatin (Lipitor), 40 MG PO DAILY Calcium Carbonate-Vitamin D W/ (Caltrate 600 Plus), 1 TAB PO BID Cholecalciferol (Vitamin D 1000 Unit), 3,000 INTER.UNIT PO DAILY Clopidogrel (Plavix), 75 MG PO DAILY Colchicine (Colchicine), 0.6 MG PO BID Cyanocobalamin (Vitamin B-12), 2,500 MCG PO MONTHLY Lisinopril (Prinivil), 5 MG PO DAILY Magnesium Oxide (Mag-Ox), 400 MG PO DAILY Multivitamins/Minerals (Mvi With Minerals), 1 TAB PO DAILY Nitroglycerin (Nitrostat), 0.4 MG UT PRN Omeprazole (Prilosec), 20 MG PO DAILY Ubiquinol (Ubiquinol), 200 MG PO DAILY Venlafaxine Hcl (Effexor Xr), 1 CAP PO DAILY Scheduled PRN Albuterol (Ventolin Hfa), 2 PUFF INH Q4 PRN for Wheezing Alprazolam (Xanax), 0.5 MG PO TID PRN for Anxiety Tramadol (Ultram), 50 MG PO Q6 PRN for Pain Allergies Coded Allergies: Hydromorphone (Verified Allergy, Severe, GI SYMPTOMS, 02/10/17) Nortriptyline (Verified Allergy, Severe, MEMORY PROBLEMS, CONFUSION, ) Topiramate (Verified Allergy, Severe, MEMORY PROBLEMS, CONFUSION, 02/10/17) Morphine (Verified Adverse Reaction, Intermediate, nausea, 12/03/16) Codeine (Verified Adverse Reaction, Mild, NAUSEA, 12/03/16) Terazosin (Verified Adverse Reaction, Mild, NAUSEA, 12/03/16) Physical Exam Vital Signs Date Time Temp Pulse Resp B/P Pulse Ox O2 Delivery O2 Flow Rate FiO2 02/10/17 16:40 84 13 94/56 100 Room Air 02/10/17 16:33 81 02/10/17 15:42 173/92 148/84 02/10/17 15:30 99 Room Air 02/10/17 15:30 94 20 107/77 98 Room Air 02/10/17 14:52 113 106/74 02/10/17 14:34 36.8 131 18 87/58 100 Room Air Physical Exam GENERAL: Awake, alert, well-appearing, in no distress HENT: Normocephalic, atraumatic. Oropharynx unremarkable. EYES: Normal conjunctiva. Sclera non-icteric. NECK: Supple. No nuchal rigidity. FROM. No JVD. RESPIRATORY: Clear to auscultation. CARDIAC: Regular rate, normal rhythm. Extremities warm and well perfused. Pulses equal. ABDOMEN: Soft, non-distended. No tenderness to palpation. No rebound or guarding. No masses. RECTAL: Melanotic stool. No gross blood. Hemoccult positive MUSCULOSKELETAL: Chest examination reveals no tenderness. The back is symmetrical on inspection without obvious abnormality. There is no CVA tenderness to palpation. No joint edema. LOWER EXTREMITIES: Calves are equal size bilaterally and non-tender. No edema. No discoloration. NEURO: Normal sensorium. No sensory or motor deficits noted. SKIN: No rash or jaundice noted. Medical Decision & Procedures ER Provider Diagnostic Interpretation: X-ray: Per my interpretation, radiologist review. CHEST ONE VIEW PORTABLE CLINICAL HISTORY: EVALUATE GI BLEED dyspnea COMPARISON STUDY: No previous studies for comparison. FINDINGS: Mild emphysematous change. Diaphragms smooth. There are no focal infiltrative changes. Pleural scar left upper lung unchanged. IMPRESSION: Mild emphysematous change. No acute process. Electronically signed by: Cam Whittington M.D. 02/10/2017 3:47 PM Dictated Date/Time: 02/10/2017 3:46 PM Laboratory Results 02/10/17 15:08 Red Blood Count 4.03, Mean Corpuscular Volume 86.4, Mean Corpuscular Hemoglobin 28.3, Mean Corpuscular Hemoglobin Concent 32.8, Mean Platelet Volume 9.8, Neutrophils (%) (Auto) 72.3, Lymphocytes (%) (Auto) 21.6, Monocytes (%) (Auto) 4.8, Eosinophils (%) (Auto) 0.5, Basophils (%) (Auto) 0.4, Neutrophils # (Auto) 5.82, Lymphocytes # (Auto) 1.74, Monocytes # (Auto) 0.39, Eosinophils # (Auto) 0.04, Basophils # (Auto) 0.03 02/10/17 15:08 Test 02/10/17 15:08 02/10/17 15:15 White Blood Count 8.05 K/uL (4.8-10.8) Red Blood Count 4.03 M/uL (4.2-5.4) Hemoglobin 11.4 g/dL (12.0-16.0) Hematocrit 34.8 % (37-47) Mean Corpuscular Volume 86.4 fL (80-100) Mean Corpuscular Hemoglobin 28.3 pg (25-34) Mean Corpuscular Hemoglobin Concent 32.8 g/dl (32-36) Platelet Count 607 K/uL (130-400) Mean Platelet Volume 9.8 fL (7.4-10.4) Neutrophils (%) (Auto) 72.3 % Lymphocytes (%) (Auto) 21.6 % Monocytes (%) (Auto) 4.8 % Eosinophils (%) (Auto) 0.5 % Basophils (%) (Auto) 0.4 % Neutrophils # (Auto) 5.82 K/uL (1.4-6.5) Lymphocytes # (Auto) 1.74 K/uL (1.2-3.4) Monocytes # (Auto) 0.39 K/uL (0.11-0.59) Eosinophils # (Auto) 0.04 K/uL (0-0.5) Basophils # (Auto) 0.03 K/uL (0-0.2) RDW Standard Deviation 49.7 fL (36.4-46.3) RDW Coefficient of Variation 15.9 % (11.5-14.5) Immature Granulocyte % (Auto) 0.4 % Immature Granulocyte # (Auto) 0.03 K/uL (0.00-0.02) Prothrombin Time 10.0 SECONDS (9.0-12.0) Prothromb Time International Ratio 0.9 (0.9-1.1) Activated Partial Thromboplast Time 22.4 SECONDS (21.0-31.0) Partial Thromboplastin Ratio 0.9 Estimated GFR () 72.5 Estimated GFR (Non- 62.6 BUN/Creatinine Ratio 23.1 (10-20) Calcium Level 9.3 mg/dl (8.5-10.1) Total Bilirubin 0.3 mg/dl (0.2-1) Direct Bilirubin 0.1 mg/dl (0-0.2) Aspartate Amino Transf (AST/SGOT) 17 U/L (15-37) Alanine Aminotransferase (ALT/SGPT) 28 U/L (12-78) Alkaline Phosphatase 105 U/L (45-117) Troponin I < 0.015 ng/ml (0-0.045) Total Protein 7.3 gm/dl (6.4-8.2) Albumin 3.9 gm/dl (3.4-5.0) Lipase 97 U/L (73-393) Bedside Hemoglobin 12.2 g/dl (12.0-16.0) Bedside Hematocrit 36 % (37-47) Bedside Sodium 140 mEq/L (135-144) Bedside Potassium 3.5 mEq/L (3.3-5.0) Bedside Chloride 104 mEq/L (101-112) Bedside Total CO2 20 mEq/l (24-31) Anion Gap 20.0 mmol/L (16-25) Bedside Blood Urea Nitrogen 22 mg/dl (7-18) Bedside Creatinine 0.8 mg/dl (0.6-1.3) Bedside Glucose (other) 124 mg/dl (70-99) Bedside Ionized Calcium ([place]) 1.14 mmol/l (1.12-1.32) Laboratory results reviewed by me Medications Administered Medications (Trade) Dose Ordered Sig/Dulce Maria Route Start Time Stop Time Status Last Admin Dose Admin Sodium Chloride 1,000 ml @ 999 mls/hr Q1H1M STAT IV 02/10/17 15:13 02/10/17 16:13 DC 02/10/17 15:30 999 MLS/HR Sodium Chloride (Nss 1000ml) 1,000 ml @ 100 mls/hr Q10H IV 02/10/17 18:06 03/12/17 18:05 02/10/17 19:00 100 MLS/HR ECG Indication: abdominal pain Rate (beats per minute): 105 Rhythm: sinus tachycardia Findings: no acute ischemic change, no ectopy ED Course 1512: The patient was evaluated in room B12. A complete history and physical exam was performed. 1513: Sodium Chloride 1000 ml @ 999 mls/hr IV 1651: I reevaluated the patient, and she was resting comfortably. 1652: I discussed the patient's case with Shyann GONZALEZ. She is going to evaluate the patient for further treatment. She additionally wants me to discuss the patient's case with GI to see what they want to do. 1713: I discussed the patient's case with Dr. Blue, Gastroenterology, and she agrees with the treatment plan. Medical Decision Triage Nursing notes reviewed. The patient's presentation and history were concerning for melanotic stool. Etiologies such as diverticulosis, AVM, coagulopathy, colitis, inflammatory bowel disease, malignancy,Arelis-Ortez tear, esophagitis, peptic ulcer disease , variceal bleed, gastritis, epistaxis, fissure, hemorrhoids, as well as others were entertained. The patient was evaluated. She had Hemoccult positive melanotic stool. She was initially hypertensive and tachycardic. This improved. She was given IV fluids. Her i-STAT revealed a slight anemia but nothing significant. The patient had a mild anemia noted on her CBC. Coags were unremarkable. She has a slight elevation of her chemistry BUN. LFTs, lipase and troponin were negative. The patient has an upper GI bleed. Etiology is unknown at this time. I did consult with the [facility] hospitalist service who asked that I discussed the case with [facility] gastroenterology. I discussed the case with Dr. Beard . She recommended admission and monitoring. She wanted the patient to be nothing by mouth. I did discuss this with the hospitalist service. The patient was evaluated in the Emergency Room for further management. The chart was completed utilizing [employer] Speech voice recognition software. Grammatical errors, random word insertions, pronoun errors, and incomplete sentences are an occasional consequence of this system due to software limitations, ambient noise, and hardware issues. Any formal questions or concerns about the content, text, or information contained within the body of this dictation should be directly addressed to the physician for clarification. Consults Time Called: 1645 Consulting Physician: LISA Pearson Returned Call: [phone] I discussed the patient's case with Shyann GONZALEZ. She is going to evaluate the patient for further treatment. She additionally wants me to discuss the patient's case with GI to see what they want to do Additional Consults: Time Called: 1655 Consulted Physician: Dr. Blue, Gastroenterology Returned Call: [phone] Additional Comments: I discussed the patient's case with Dr. Blue, Gastroenterology, and she agrees with the treatment plan. Impression Primary Impression: GI bleed Scribe Attestation The scribe's documentation has been prepared under my direction and personally reviewed by me in its entirety. I confirm that the note above accurately reflects all work, treatment, procedures, and medical decision making performed by me. Departure Information Dispostion Being Evaluated By Hospitalist Danilo Jackson M.D. (PCP) Patient Instructions My [facility]
[2017-02-10] MEDS: ALPRAZOLAM 0.5 MG TAB PO PRN (23:54)
[2017-02-11] VITALS (25 sets, daily range): BP systolic 96–143; BP diastolic 62–86; PULSE 62–78; TEMP 36.2–37; O2SAT 96–100
[2017-02-11 00:36] LABS: HEMATOCRIT 24.4 % (37-47)
[2017-02-11] MEDS ORDERED: MoRPHine SULFATE 2 MG/ML CARP IV PRN (00:45)
[2017-02-11] MEDS ORDERED: ACETAMINOPHEN IV 650 MG in EMPTY BAG 0 ML IV PRN (00:45)
[2017-02-11] MEDS: OXYCODONE/ACETAMINOPHEN 5-325 TAB PO PRN ×3 (01:20→13:13)
[2017-02-11] MEDS: TRAMADOL HCL 50 MG TAB PO PRN ×2 (04:00→16:32)
[2017-02-11] MEDS: PANTOprazole INJ 40 MG in DEXTROSE 5% 100ML IV SCH ×4 (04:00→19:34)
[2017-02-11] MEDS: SODIUM CHLORIDE 0.9% 1000ML 1,000 ML IV SCH ×2 (04:06→14:00)
--- NOTE | 2017-02-11 09:07 | Gastrointestinal Consultation ---
Gastrointestinal Consultation Date of Consultation: Feb 11, 2017 Attending Physician: Rodney Consulting Physician: Eduardo Reason for Consultation: melena History of Present Illness Ms. Dorita Barcenas is a 61 year old female with past medical history significant for history of GI bleed, osteoarthritis, trochanteric bursists, CAD s/p drug eluting coronary stent, anxiety, history of gastric bypass, reflux, dyslipidemia and HTN. GI is consulted for evaluation of melena. She has a significant history of GI bleeding for which she was admitted to [facility] from 01/24 until transferred to [place] on 01/25. As an outpatient she was taking daily aspirin, plavix and ibuprofun. These medication were held and she was placed on a PPI drip. There was a two day history of melena at that time which then progressed to triny BRBPR. A colonoscopy, EGD and tagged red blood scan were completed by Dr. Pedraza before transfer without any source of bleeding identified. In [place] she underwent VCE, upper & lower enteroscopy without fluoroscopy where two small nonbleeding angiodysplastic lesions were cauterized. Not thought to be source of bleeding as bleeding was proximal to these sites. Patient was no longer expierencing BRBPR or melena and was restarted on aspirin and plavix and watched for 24h. No bleeding occurred prior to discharge on 02/04/17. At home she was doing well, although quite fatigued. No BM until yesterday morning. BM was black and formed. Since first episode of melena there has been two more black stools, liquid and sticky. No BM since last night at 9pm. On admission HGB was 11.4 and dropped to 7.9 at recheck. She is currently getting one unit of blood. Morning labs pending. Currently on PPI bolus and drip with plavix, NSAIDs and aspirin on hold. Today denies any lightheadedness, dizziness, chest pain, SOB, abdominal pain, nausea, vomiting, BRB or melena this AM. EGD 01/24/17: unremarkable, evidence of varinder-en-y, no source of bleeding identified Colonoscopy 01/25/17: poor prep, diverticulitis, no source of bleeding identified Past Medical/Surgical History Medical Problems: (1) Acute GI bleeding Status: Acute (2) Anemia Status: Acute (3) Elevated troponin Status: Acute (4) GI bleed Status: Acute (5) Hypotension Status: Acute (6) Left sided chest pain Status: Acute Family History ALS (amyotrophic lateral sclerosis) SISTER Coronary artery disease MOTHER (CABG / age 53) Hypertension MOTHER Social History Smoking Status: Former Smoker Alcohol Use: none Drug Use: none Marital Status: Housing Status: lives with family Occupation Status: employed Allergies Coded Allergies: Hydromorphone (Verified Allergy, Severe, GI SYMPTOMS, 02/10/17) Nortriptyline (Verified Allergy, Severe, MEMORY PROBLEMS, CONFUSION, ) Topiramate (Verified Allergy, Severe, MEMORY PROBLEMS, CONFUSION, 02/10/17) Morphine (Verified Adverse Reaction, Intermediate, nausea, 12/03/16) Codeine (Verified Adverse Reaction, Mild, NAUSEA, 12/03/16) Terazosin (Verified Adverse Reaction, Mild, NAUSEA, 12/03/16) Current Medications Home Meds and Scripts Medications Dose Route/Sig Max Daily Dose Days Date Category Caltrate 600 Plus (Calcium Carbonate-Vitamin D W/) 1 Tab Tab 1 Tab PO BID 02/10/17 Reported Vitamin B-12 (Cyanocobalamin) 1,000 Mcg Tab 2,500 Mcg PO MONTHLY 02/10/17 Reported Mvi With Minerals (Multivitamins/Minerals) Tab 1 Tab PO DAILY 02/10/17 Reported Mag-Ox (Magnesium Oxide) 400 Mg Tab 400 Mg PO DAILY 02/10/17 Reported Vitamin D 1000 Unit (Cholecalciferol) 1,000 Unit Cap 3,000 Inter.unit PO DAILY 02/10/17 Reported Effexor Xr (Venlafaxine Hcl) 75 Mg Cap 1 Cap PO DAILY 30 02/10/17 Reported Ubiquinol 100 Mg Cap 200 Mg PO DAILY 02/10/17 Reported Plavix (Clopidogrel Bisulfate) 75 Mg Tab 75 Mg PO DAILY 02/10/17 Reported Prinivil (Lisinopril) 5 Mg Tab 5 Mg PO DAILY 02/10/17 Reported Lipitor (Atorvastatin Calcium) 40 Mg Tab 40 Mg PO DAILY 02/10/17 Reported Colchicine 0.6 Mg Tab 0.6 Mg PO BID 02/10/17 Reported Nitrostat (Nitroglycerin) 0.4 Mg Tab 0.4 Mg UT PRN 02/10/17 Reported Xanax (Alprazolam) 0.5 Mg Tab 0.5 Mg PO TID PRN 02/10/17 Reported Prilosec (Omeprazole) 20 Mg Capcr 20 Mg PO DAILY 02/10/17 Reported Aspirin Ec (Aspirin) 81 Mg Tab 81 Mg PO DAILY 02/10/17 Reported Ultram (Tramadol HCl) 50 Mg Tab 50 Mg PO Q6 PRN 02/10/17 Reported Ventolin Hfa (Albuterol) 60 Puffs/5400 Mcg Aers 2 Puff INH Q4 PRN 01/24/17 Reported Review of Systems Constitutional: No chills, No fever Respiratory: No shortness of breath Cardiac: No chest pain, No edema Abdomen: + GI bleeding (no episodes or melena since last night 9pm), No constipation, No diarrhea, No nausea, No pain, No vomiting Endo: + fatigue Physical Exam Date Time Temp Pulse Resp B/P Pulse Ox O2 Delivery O2 Flow Rate FiO2 02/11/17 08:00 98 Room Air 02/11/17 07:45 36.9 66 18 117/74 98 02/11/17 07:30 36.7 77 18 115/77 98 Room Air 02/11/17 07:15 36.7 77 18 115/77 98 02/11/17 06:45 36.7 72 20 110/76 98 02/11/17 06:15 36.5 77 18 108/70 98 02/11/17 06:00 36.6 68 18 110/66 98 02/11/17 04:25 36.7 65 18 109/71 97 02/11/17 04:00 97 Room Air 02/11/17 04:00 36.7 65 18 110/74 97 Room Air 02/11/17 03:25 36.5 73 18 112/75 97 02/11/17 03:05 36.5 73 18 96/62 96 02/11/17 02:35 36.6 70 20 101/65 02/11/17 02:20 36.9 70 18 98/65 97 02/11/17 02:05 36.4 77 20 110/86 97 02/11/17 00:28 36.9 78 18 100/63 98 02/11/17 00:00 100 Room Air 02/10/17 22:45 36.8 98 20 112/55 100 Room Air 02/10/17 19:48 80 20 112/55 100 Room Air 02/10/17 18:25 83 20 109/68 99 Room Air 02/10/17 18:25 78 18 109/68 98 Room Air 02/10/17 16:40 84 13 94/56 100 Room Air 02/10/17 16:33 81 02/10/17 15:42 173/92 148/84 02/10/17 15:30 99 Room Air 02/10/17 15:30 94 20 107/77 98 Room Air 02/10/17 14:52 113 106/74 02/10/17 14:34 36.8 131 18 87/58 100 Room Air General Appearance: no apparent distress Eyes: PERRL ENT: hearing grossly normal Neck: supple, trachea midline Respiratory/Chest: lungs clear, normal breath sounds, no respiratory distress, no accessory muscle use Cardiovascular: regular rate, rhythm, no edema, no murmur Abdomen: normal bowel sounds, non tender, soft, no organomegaly, no pulsatile mass Neurologic/Psych: alert, normal mood/affect, oriented x 3 Skin: normal color, no jaundice, warm/dry, no rash Laboratory Results Last 24 Hours Test 02/10/17 15:08 02/10/17 15:15 02/10/17 20:23 02/10/17 23:30 White Blood Count 8.05 K/uL Red Blood Count 4.03 M/uL Hemoglobin 11.4 g/dL 7.9 g/dL Hematocrit 34.8 % 24.4 % Mean Corpuscular Volume 86.4 fL Mean Corpuscular Hemoglobin 28.3 pg Mean Corpuscular Hemoglobin Concent 32.8 g/dl Platelet Count 607 K/uL Mean Platelet Volume 9.8 fL Neutrophils (%) (Auto) 72.3 % Lymphocytes (%) (Auto) 21.6 % Monocytes (%) (Auto) 4.8 % Eosinophils (%) (Auto) 0.5 % Basophils (%) (Auto) 0.4 % Neutrophils # (Auto) 5.82 K/uL Lymphocytes # (Auto) 1.74 K/uL Monocytes # (Auto) 0.39 K/uL Eosinophils # (Auto) 0.04 K/uL Basophils # (Auto) 0.03 K/uL RDW Standard Deviation 49.7 fL RDW Coefficient of Variation 15.9 % Immature Granulocyte % (Auto) 0.4 % Immature Granulocyte # (Auto) 0.03 K/uL Prothrombin Time 10.0 SECONDS Prothromb Time International Ratio 0.9 Activated Partial Thromboplast Time 22.4 SECONDS Partial Thromboplastin Ratio 0.9 Sodium Level 141 mmol/L Potassium Level 3.5 mmol/L Chloride Level 107 mmol/L Carbon Dioxide Level 23 mmol/L Anion Gap 11.0 mmol/L 20.0 mmol/L Blood Urea Nitrogen 22 mg/dl Creatinine 0.97 mg/dl Estimated GFR () 72.5 Estimated GFR (Non- 62.6 BUN/Creatinine Ratio 23.1 Random Glucose 114 mg/dl Calcium Level 9.3 mg/dl Total Bilirubin 0.3 mg/dl Direct Bilirubin 0.1 mg/dl Aspartate Amino Transf (AST/SGOT) 17 U/L Alanine Aminotransferase (ALT/SGPT) 28 U/L Alkaline Phosphatase 105 U/L Troponin I < 0.015 ng/ml Total Protein 7.3 gm/dl Albumin 3.9 gm/dl Lipase 97 U/L Bedside Hemoglobin 12.2 g/dl Bedside Hematocrit 36 % Bedside Sodium 140 mEq/L Bedside Potassium 3.5 mEq/L Bedside Chloride 104 mEq/L Bedside Total CO2 20 mEq/l Bedside Blood Urea Nitrogen 22 mg/dl Bedside Creatinine 0.8 mg/dl Bedside Glucose (other) 124 mg/dl Bedside Ionized Calcium ([place]) 1.14 mmol/l Urine Color YELLOW Urine Appearance CLEAR Urine pH 5.0 Urine Specific [place] 1.008 Urine Protein NEG Urine Glucose (UA) NEG Urine Ketones NEG Urine Occult Blood NEG Urine Nitrite NEG Urine Bilirubin NEG Urine Urobilinogen NEG Urine Leukocyte Esterase TRACE Urine WBC (Auto) 1-5 /hpf Urine RBC (Auto) 0-4 /hpf Urine Hyaline Casts (Auto) 0 /lpf Urine Epithelial Cells (Auto) 5-10 /lpf Urine Bacteria (Auto) NEG Test 02/11/17 04:44 Impression Patient is a 61 year old female with melena. Recent EGD and colonoscopy without any identifiable source, lower enteroscopy without fluoroscopy on 02/02/17 with two non bleeding angioplastic lesions cauterized. Differentials include small bowel GI bleed Plan NPO hold plavix, NSAIDs Trend H&H Transfuse as needed Monitor stools Repeat EGD/Colon likely low yield GI bleeding scan ?push enteroscopy - will discuss with attending Attg addendum: I interviewed and examined pt, reviewed chart and labs, agree with above. Pt with obscure overt GIB, s/p reent endoscopic w/u without cause. Will plan enteroscopy, bleeding scan. OK for ASA given recent stent; if ok with card, please hold Plavix. No need for PPI gtt.
[2017-02-11] MEDS ORDERED: PROPOFOL IV EMULSION 10 MG/ML 20 ML VIAL IV ONE (10:57)
[2017-02-11] MEDS ORDERED: LIDOCAINE HCL 2% 2 ML VIAL (20MG/ML) ONE ×2 (10:57)
--- NOTE | 2017-02-11 11:32 | GI REPORT ---
Procedure Date: 02/11/2017 11:13 AM Procedure: Small bowel enteroscopy Indications: Melena Medicines: See the Anesthesia note for documentation of the administered medications Complications: No immediate complications. Estimated Blood Loss: Estimated blood loss: none. Procedure: Pre-Anesthesia Assessment: - ASA Grade Assessment: IV - A patient with severe systemic disease that is a constant threat to life. - After reviewing the risks and benefits, the patient was deemed in satisfactory condition to undergo the procedure. After obtaining informed consent, the endoscope was passed under direct vision. Throughout the procedure, the patient's blood pressure, pulse, and oxygen saturations were monitored continuously. The scope was introduced through the mouth, and advanced to the proximal jejunum. After obtaining informed consent, the endoscope was passed under direct vision. Throughout the procedure, the patient's blood pressure, pulse, and oxygen saturations were monitored continuously.The small bowel enteroscopy was accomplished without difficulty. The patient tolerated the procedure well. Findings: The esophagus was normal. The stomach pouch was normal. 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 The anastamosis was unremarkable, with suture material at the anastamosis. The afferent and efferent loops were intubated and were unremarkable. No source of bleeding noted. Impression: No evidence of bleeding or source of bleeding identified. Recommendation: - Discharge patient to floor. Bleeding scan today. Frank Clark M.D. Frank Clark MD 02/11/2017 11:32:12 AM This report has been signed electronically. Note Initiated On: 02/11/2017 11:13 AM I attest to the content of the Intraoperative Record and orders documented therein, exceptions below
--- NOTE | 2017-02-11 11:37 | Anesthesiology Progress Note ---
Anesthesia Post Op Note Date & Time Feb 11, 2017 at 11:38 Vital Signs Vital Signs Past 12 Hours Date Time Temp Pulse Resp B/P Pulse Ox O2 Delivery O2 Flow Rate FiO2 02/11/17 10:02 36.6 72 20 134/77 100 Room Air 02/11/17 09:36 36.4 70 18 103/64 96 Room Air 02/11/17 08:45 36.2 70 18 103/64 96 02/11/17 08:00 98 Room Air 02/11/17 07:45 36.9 66 18 117/74 98 02/11/17 07:30 36.7 77 18 115/77 98 Room Air 02/11/17 07:15 36.7 77 18 115/77 98 02/11/17 06:45 36.7 72 20 110/76 98 02/11/17 06:15 36.5 77 18 108/70 98 02/11/17 06:00 36.6 68 18 110/66 98 02/11/17 04:25 36.7 65 18 109/71 97 02/11/17 04:00 97 Room Air 02/11/17 04:00 36.7 65 18 110/74 97 Room Air 02/11/17 03:25 36.5 73 18 112/75 97 02/11/17 03:05 36.5 73 18 96/62 96 02/11/17 02:35 36.6 70 20 101/65 02/11/17 02:20 36.9 70 18 98/65 97 02/11/17 02:05 36.4 77 20 110/86 97 02/11/17 00:28 36.9 78 18 100/63 98 02/11/17 00:00 100 Room Air Notes Mental Status: alert / awake / arousable, participated in evaluation Pt Amnestic to Procedure: Yes Nausea / Vomiting: adequately controlled Pain: adequately controlled Airway Patency, RR, SpO2: stable & adequate BP & HR: stable & adequate Hydration State: stable & adequate Anesthetic Complications: no major complications apparent
[2017-02-11 13:07] LABS: HEMATOCRIT 31.2 % (37-47); MEAN CELL VOLUME 83.9 fL (80-100); MEAN CORPUSCULAR HEMOGLOBIN 28.5 pg (25-34); MEAN PLATELET VOLUME 9.2 fL (7.4-10.4); PLATELET COUNT 264 K/uL (130-400); RED BLOOD COUNT 3.72 M/uL (4.2-5.4); WHITE BLOOD COUNT 4.43 K/uL (4.8-10.8)
[2017-02-11 13:26] LABS: BUN/CREATININE RATIO 25.9 (10-20); CALCIUM 7.6 mg/dl (8.5-10.1); CREATININE 0.51 mg/dl (0.60-1.20); POTASSIUM 4.1 mmol/L (3.5-5.1)
[2017-02-11] MEDS: ONDANSETRON INJ 2 MG/ML 2 ML VIAL IV PRN ×2 (14:03→20:23)
--- NOTE | 2017-02-11 15:16 | Progress Note ---
Internal Med Progress Note Date of Service: Feb 11, 2017. Provider Documentation: SUBJECTIVE: Patient is seen and examined at bedside. States having no BM today. Denies any abd pain, nausea, dizziness, chest pain, SOB. OBJECTIVE: Vital Signs-as noted below Physical Exam: Vitals signs as noted above General Appearance:Moderately built and nourished, no apparent distress Head: normocephalic, Atraumatic Eyes: normal inspection, EOMI, PERRLA Neck: supple, no JVD, Trachea midline Respiratory/Chest: Normal breath sounds, CTA Cardiovascular: S1, S2, No murmur Abdomen/GI:Soft, Non tender, Bowel sounds present Extremities/Musculoskelatal:normal inspection, no edema Neurologic/Psych:AAOX3, grossly no focal neurological deficits Skin: normal color, warm Lab data as noted below. ASSESSMENT & PLAN: Patient is a 61 y/o female who presents for evaluation of melena. Melena: Lower enteroscopy on 02/02/17 with two non bleeding angioplastic lesions cauterized Previously had colonoscopy, EGD and tagged red blood scan by Dr. Pedraza: without any source of bleeding identified Small bowel Endoscopy: No bleeding source identified Planned for bleeding scan tonight S/P 2 units PRBCs Appreciate GI help Continue pantoprazole ggt for now monitor Hgb hold aspirin, plavix for now Hypotension, Tachycardia likely secondary to dehydration Improved with IVF's Continue to hold lisinopril for now CAD s/p ALMITA (10/2016) [id number] to hold aspirin and clopidogrel for now Will restart lisinopril, statin when appropriate Left hip OA continue tramadol PRN avoid NSAIDs PT/OT Anxiety To resume venlafaxine when taking PO DVT px: SCD's. DISPOSITION: Continue to monitor Vital Signs: Date Time Temp Pulse Resp B/P Pulse Ox O2 Delivery O2 Flow Rate FiO2 02/11/17 12:25 37.0 62 18 143/83 100 02/11/17 12:00 68 18 136/84 99 Room Air 02/11/17 12:00 100 Room Air 02/11/17 11:49 68 02/11/17 11:49 68 96 02/11/17 11:46 64 18 128/80 97 Room Air 02/11/17 11:46 128/80 02/11/17 11:34 77 99 02/11/17 11:34 77 02/11/17 11:33 78 99 02/11/17 11:33 78 02/11/17 11:33 79 16 122/81 100 Room Air 02/11/17 10:02 36.6 72 20 134/77 100 Room Air 02/11/17 09:36 36.4 70 18 103/64 96 Room Air 02/11/17 08:45 36.2 70 18 103/64 96 02/11/17 08:00 98 Room Air 02/11/17 07:45 36.9 66 18 117/74 98 02/11/17 07:30 36.7 77 18 115/77 98 Room Air 02/11/17 07:15 36.7 77 18 115/77 98 02/11/17 06:45 36.7 72 20 110/76 98 02/11/17 06:15 36.5 77 18 108/70 98 02/11/17 06:00 36.6 68 18 110/66 98 02/11/17 04:25 36.7 65 18 109/71 97 02/11/17 04:00 97 Room Air 02/11/17 04:00 36.7 65 18 110/74 97 Room Air 02/11/17 03:25 36.5 73 18 112/75 97 02/11/17 03:05 36.5 73 18 96/62 96 02/11/17 02:35 36.6 70 20 101/65 02/11/17 02:20 36.9 70 18 98/65 97 02/11/17 02:05 36.4 77 20 110/86 97 02/11/17 00:28 36.9 78 18 100/63 98 02/11/17 00:00 100 Room Air 02/10/17 22:45 36.8 98 20 112/55 100 Room Air 02/10/17 19:48 80 20 112/55 100 Room Air 02/10/17 18:25 83 20 109/68 99 Room Air 02/10/17 18:25 78 18 109/68 98 Room Air 02/10/17 16:40 84 13 94/56 100 Room Air 02/10/17 16:33 81 Lab Results: Results Past 24 Hours Test 02/10/17 20:23 02/10/17 23:30 02/11/17 12:55 02/11/17 15:38 Range/Units Urine Color YELLOW Urine Appearance CLEAR CLEAR Urine pH 5.0 4.5-7.5 Urine Specific [place] 1.008 1.000-1.030 Urine Protein NEG NEG Urine Glucose (UA) NEG NEG Urine Ketones NEG NEG Urine Occult Blood NEG NEG Urine Nitrite NEG NEG Urine Bilirubin NEG NEG Urine Urobilinogen NEG NEG Urine Leukocyte Esterase TRACE NEG Urine WBC (Auto) 1-5 0-5 /hpf Urine RBC (Auto) 0-4 0-4 /hpf Urine Hyaline Casts (Auto) 0 0-5 /lpf Urine Epithelial Cells (Auto) 5-10 0-5 /lpf Urine Bacteria (Auto) NEG NEG Hemoglobin 7.9 10.6 12.0-16.0 g/dL Hematocrit 24.4 31.2 37-47 % White Blood Count 4.43 4.8-10.8 K/uL Red Blood Count 3.72 4.2-5.4 M/uL Mean Corpuscular Volume 83.9 80-100 fL Mean Corpuscular Hemoglobin 28.5 25-34 pg Mean Corpuscular Hemoglobin Concent 34.0 32-36 g/dl RDW Standard Deviation 47.8 36.4-46.3 fL RDW Coefficient of Variation 15.7 11.5-14.5 % Platelet Count 264 130-400 K/uL Mean Platelet Volume 9.2 7.4-10.4 fL Sodium Level 146 136-145 mmol/L Potassium Level 4.1 3.5-5.1 mmol/L Chloride Level 116 98-107 mmol/L Carbon Dioxide Level 22 21-32 mmol/L Anion Gap 8.0 3-11 mmol/L Blood Urea Nitrogen 13 7-18 mg/dl Creatinine 0.51 0.60-1.20 mg/dl Est Creatinine Clear Calc Drug Dose 103.0 ml/min Estimated GFR () 119.4 Estimated GFR (Non- 103.1 BUN/Creatinine Ratio 25.9 10-20 Random Glucose 93 70-99 mg/dl Calcium Level 7.6 8.5-10.1 mg/dl
[2017-02-11 16:41] LABS: HEMATOCRIT 31.4 % (37-47)
--- NOTE | 2017-02-11 19:11 | DIAGNOSTIC IMAGING REPORT ---
GI BLEEDING SCAN HISTORY: occult GI bleed TECHNIQUE: Dynamic and static images of the abdomen and pelvis were performed over a 60 minute time interval immediately following the intravenous administration of 29.3 mCi of technetium 99 M ultra tag. COMPARISON STUDY: None. FINDINGS: No abnormal radiotracer uptake seen within the small or large bowel to suggest active GI bleed. Focal areas of radiotracer uptake seen within the stomach favor free pertechnetate suggesting a suboptimal exam. IMPRESSION: No abnormal radiotracer uptake seen within the small or large bowel to suggest active GI bleed. Electronically signed by: Maykel Leigh M.D. 02/11/2017 7:10 PM Dictated Date/Time: 02/11/2017 7:05 PM
[2017-02-11] MEDS: ALPRAZOLAM 0.5 MG TAB PO PRN (21:15)
[2017-02-12] VITALS (9 sets, daily range): BP systolic 102–130; BP diastolic 67–86; PULSE 74–89; TEMP 36.4–36.8; O2SAT 97–100
[2017-02-12] MEDS: OXYCODONE/ACETAMINOPHEN 5-325 TAB PO PRN ×3 (00:36→23:27)
[2017-02-12] MEDS: PROMETHAZINE HCL INJ 12.5 MG in SODIUM CHLORIDE 0.9% 50ML 50 ML IV PRN ×2 (00:37→08:02)
[2017-02-12] MEDS: PANTOprazole INJ 40 MG in DEXTROSE 5% 100ML IV SCH ×4 (00:42→15:57)
[2017-02-12] MEDS: SODIUM CHLORIDE 0.9% 1000ML 1,000 ML IV SCH ×2 (00:42→10:35)
[2017-02-12 10:28] LABS: HEMATOCRIT 27.5 % (37-47)
--- NOTE | 2017-02-12 11:21 | Gastroenterology Progress Note ---
Progress Note Date of Service: Feb 12, 2017 Subjective Pt evaluation today including: conversation w/ patient, physical exam, chart review, lab review, review of studies, review of inpatient medication list Ms. Barcenas is a 61 yr old female w/o is S/P gastric bypass. She had a drug eluting stent placed a few months ago and has been on ASA and Plavix as an OP. She experienced melena in December. She underwent extensive w/u here and in [place] w/o cause of the GI bleed. She was home for a week when she experienced a second GI bleed: A large melena BM on 02/10/17 and she immediately reported to the ED. On arrival Hb 11.4, dropped to 7.9, received 2 units of blood and Hb today is 9.5. EGD and bleeding scan yesterday w/o cause of melena. Most recent gross bleeding was about 36 hrs ago (soon after arrival she passed a black BM with some red blood as well). Pt denies having any abdominal pain with these episodes. Review of Systems Constitutional: No fever ENT: No unusual epistaxis Respiratory: No cough Cardiac: No chest pain Abdomen: + GI bleeding, + diarrhea (loose black/red BMs yesterday but in general no diarrhea), No constipation, No nausea, No pain, No vomiting Female : No dysuria Neuro: No memory loss Psych: No depression symptoms Heme: No abnormal bleeding/bruising Endo: + fatigue (mild) Skin: No rash Medications Current Inpatient Medications Medications (Trade) Dose Ordered Sig/Dulce Maria Route Start Time Stop Time Status Last Admin Dose Admin Sodium Chloride (Nss 1000ml) 1,000 ml @ 100 mls/hr Q10H IV 02/10/17 18:06 03/12/17 18:05 02/12/17 10:35 100 MLS/HR Ondansetron HCl (Zofran Inj) 4 mg Q6H PRN IV 02/10/17 18:15 03/12/17 18:14 02/11/17 20:23 4 MG Albuterol (Ventolin Hfa Inhaler) 2 puffs Q4 PRN INH 02/10/17 18:15 03/12/17 18:14 Alprazolam (Xanax Tab) 0.5 mg TID PRN PO 02/10/17 18:15 4/14/17 18:14 02/11/17 21:15 0.5 MG Tramadol HCl 50 mg 50 mg Q6 PRN PO 02/10/17 18:15 03/12/17 18:14 02/11/17 16:32 50 MG Pantoprazole Sodium 40 mg/ Dextrose 100 ml @ 20 mls/hr Q5H IV 02/10/17 18:45 03/12/17 18:44 02/12/17 10:35 20 MLS/HR Acetaminophen/ Empty Bag (Ofirmev IV/ Empty Iv Bag 100ml) 65 ml @ 260 mls/hr Q6H PRN IV 02/11/17 00:45 03/13/17 00:44 Oxycodone/ Acetaminophen (Percocet 5-325mg Tab) pain not relieved by tyle... Q6H PRN PO 02/11/17 00:45 02/25/17 00:44 02/12/17 05:45 2 TAB Morphine Sulfate 2 mg 2 mg Q3H PRN IV 02/11/17 00:45 02/25/17 00:44 Promethazine HCl/ Sodium Chloride (Phenergan Inj/ Nss 50ml) 50.5 ml @ 204 mls/hr Q6H PRN IV 02/11/17 00:45 03/13/17 00:44 02/12/17 08:02 204 MLS/HR Objective Vital Signs Date Time Temp Pulse Resp B/P Pulse Ox O2 Delivery O2 Flow Rate FiO2 02/12/17 08:00 Room Air 02/12/17 07:30 36.8 80 18 121/78 99 02/12/17 03:26 36.8 74 16 102/67 98 02/12/17 00:00 98 Room Air 02/11/17 23:11 36.7 76 16 104/68 98 Room Air 02/11/17 20:23 36.4 76 18 108/72 100 Room Air 02/11/17 20:00 99 Room Air 02/11/17 16:10 36.6 75 18 129/85 100 Room Air 02/11/17 16:00 100 Room Air 02/11/17 12:25 37.0 62 18 143/83 100 02/11/17 12:00 68 18 136/84 99 Room Air 02/11/17 12:00 100 Room Air 02/11/17 11:49 68 02/11/17 11:49 68 96 02/11/17 11:46 64 18 128/80 97 Room Air 02/11/17 11:46 128/80 02/11/17 11:34 77 99 02/11/17 11:34 77 02/11/17 11:33 78 99 02/11/17 11:33 78 02/11/17 11:33 79 16 122/81 100 Room Air Physical Exam General Appearance: no apparent distress Neck: thyroid normal, no JVD Respiratory/Chest: lungs clear Cardiovascular: regular rate, rhythm, no gallop, no JVD, no murmur Abdomen: non tender, soft Extremities: non-tender Neurologic/Psych: alert, normal mood/affect, oriented x 3 Skin: normal color, no jaundice Laboratory Results Last 24 Hours Test 02/11/17 12:55 02/11/17 16:30 02/11/17 23:25 02/12/17 07:34 White Blood Count 4.43 K/uL Red Blood Count 3.72 M/uL Hemoglobin 10.6 g/dL 10.7 g/dL 9.5 g/dL 9.2 g/dL Hematocrit 31.2 % 31.4 % 28.0 % 27.5 % Mean Corpuscular Volume 83.9 fL Mean Corpuscular Hemoglobin 28.5 pg Mean Corpuscular Hemoglobin Concent 34.0 g/dl RDW Standard Deviation 47.8 fL RDW Coefficient of Variation 15.7 % Platelet Count 264 K/uL Mean Platelet Volume 9.2 fL Sodium Level 146 mmol/L Potassium Level 4.1 mmol/L Chloride Level 116 mmol/L Carbon Dioxide Level 22 mmol/L Anion Gap 8.0 mmol/L Blood Urea Nitrogen 13 mg/dl Creatinine 0.51 mg/dl Est Creatinine Clear Calc Drug Dose 103.0 ml/min Estimated GFR () 119.4 Estimated GFR (Non- 103.1 BUN/Creatinine Ratio 25.9 Random Glucose 93 mg/dl Calcium Level 7.6 mg/dl Assessment and Plan Ms. Barcenas is a 61 yr old female with obscure GI bleeding. She has recently had melena and is on a drug eluting stent on ASA, Plavix (held on this admission ). No evidence of gross GI bleeding in the past 36 hrs. Plan: 1. May advance to soft diet. 2. Continue to monitor Hb daily and stool outputs. 3. OK to stop Protonix drip and return to same PPI as prior to admission. 4. Because has drug eluting stent, please resume ASA; would restart Plavix on discharge. Attg addemndum: I interviewed and examined pt, reviewed chart and labs. Agree with above - pt is without recurrent GIB, and without complaint. Cont obs for now, plan for d/c Wednesday if no further bleeding. Please call with questions over weekend.
[2017-02-12] MEDS ORDERED: NURSING VERBAL MED ORDER ONE ×2 (16:15→20:45)
[2017-02-12 16:24] LABS: HEMATOCRIT 27.8 % (37-47)
--- NOTE | 2017-02-12 16:26 | Progress Note ---
Internal Med Progress Note Date of Service: Feb 12, 2017. Provider Documentation: SUBJECTIVE: Patient is seen and examined at bedside. States feeling well. No bleeding since yesterday. Had no BM today. Denies any abd pain, nausea, dizziness, chest pain, SOB. OBJECTIVE: Vital Signs-as noted below Physical Exam: Vitals signs as noted above General Appearance:Moderately built and nourished, no apparent distress Head: normocephalic, Atraumatic Eyes: normal inspection, EOMI, PERRLA Neck: supple, no JVD, Trachea midline Respiratory/Chest: Normal breath sounds, CTA Cardiovascular: S1, S2, No murmur Abdomen/GI:Soft, Non tender, Bowel sounds present Extremities/Musculoskelatal:normal inspection, no edema Neurologic/Psych:AAOX3, grossly no focal neurological deficits Skin: normal color, warm Lab data as noted below. ASSESSMENT & PLAN: Patient is a 61 y/o female who presents for evaluation of melena. Melena: Lower enteroscopy on 02/02/17 with two non bleeding angioplastic lesions cauterized Previously had colonoscopy, EGD and tagged red blood scan by Dr. Pedraza: without any source of bleeding identified Small bowel Endoscopy: No bleeding source identified Bleeding scan: No source of bleeding identified S/P 2 units PRBCs Appreciate GI help Continue pantoprazole ggt (Needs to complete 72 hours) monitor Hgb: 9.5 today hold aspirin, plavix for now Hypotension, Tachycardia likely secondary to dehydration Resolved with IVF's Continue to hold lisinopril for now: BP stable CAD s/p ALMITA (10/2016) Continue to hold aspirin and clopidogrel for now Will restart lisinopril, statin when appropriate Will discuss with cardiology regarding restarting Plavix Left hip OA continue tramadol PRN avoid NSAIDs PT/OT Anxiety To resume venlafaxine when taking PO DVT px: SCD's. DISPOSITION: Continue to monitor PROCEDURES: BLEEDING SCAN: No abnormal radiotracer uptake seen within the small or large bowel to suggest active GI bleed. EGD: The esophagus was normal. The stomach pouch was normal. 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 The anastamosis was unremarkable, with suture material at the anastamosis. The afferent and efferent loops were intubated and were unremarkable. No source of bleeding noted. Impression: No evidence of bleeding or source of bleeding identified. Recommendation: - Discharge patient to floor. Bleeding scan today. Vital Signs: Date Time Temp Pulse Resp B/P Pulse Ox O2 Delivery O2 Flow Rate FiO2 02/12/17 15:03 36.8 78 18 123/81 98 02/12/17 12:00 Room Air 02/12/17 11:31 36.8 78 18 124/86 99 02/12/17 08:00 Room Air 02/12/17 07:30 36.8 80 18 121/78 99 02/12/17 03:26 36.8 74 16 102/67 98 02/12/17 00:00 98 Room Air 02/11/17 23:11 36.7 76 16 104/68 98 Room Air 02/11/17 20:23 36.4 76 18 108/72 100 Room Air 02/11/17 20:00 99 Room Air Lab Results: Results Past 24 Hours Test 02/11/17 23:25 02/12/17 07:34 02/12/17 16:00 Range/Units Hemoglobin 9.5 9.2 9.2 12.0-16.0 g/dL Hematocrit 28.0 27.5 27.8 37-47 %
[2017-02-12] MEDS ORDERED: VENLAFAXINE HCL XR 75 MG CAPXR PO ONE (16:45)
[2017-02-12] MEDS: TRAMADOL HCL 50 MG TAB PO PRN (21:19)
[2017-02-13] VITALS (9 sets, daily range): BP systolic 107–141; BP diastolic 72–89; PULSE 66–84; TEMP 36.4–36.7; O2SAT 95–98
[2017-02-13] MEDS: OXYCODONE/ACETAMINOPHEN 5-325 TAB PO PRN ×2 (01:07→19:52)
[2017-02-13] MEDS: TRAMADOL HCL 50 MG TAB PO PRN (03:12)
[2017-02-13] MEDS: ALPRAZOLAM 0.5 MG TAB PO PRN ×2 (03:33→19:51)
[2017-02-13 06:19] LABS: HEMATOCRIT 31.1 % (37-47)
[2017-02-13 06:51] LABS: BUN/CREATININE RATIO 12.1 (10-20); CREATININE 0.61 mg/dl (0.60-1.20); POTASSIUM 3.7 mmol/L (3.5-5.1)
[2017-02-13] MEDS: ASPIRIN 81 MG ECTAB PO SCH (08:04)
[2017-02-13] MEDS: PANTOprazole SOD 40 MG TAB PO SCH (08:04)
[2017-02-13] MEDS: VENLAFAXINE HCL XR 75 MG CAPXR PO SCH (08:04)
[2017-02-13 09:20] LABS: CALCIUM 8.8 mg/dl (8.5-10.1)
--- NOTE | 2017-02-13 14:31 | Progress Note ---
Internal Med Progress Note Date of Service: Feb 13, 2017. Provider Documentation: SUBJECTIVE: Patient is seen and examined at bedside. Denies any bleeding issues. Denies abd pain, diarrhea, chest pain, SOB. Family at bedside. OBJECTIVE: Vital Signs-as noted below Physical Exam: Vitals signs as noted above General Appearance:Moderately built and nourished, no apparent distress Head: normocephalic, Atraumatic Eyes: normal inspection, EOMI, PERRLA Neck: supple, no JVD, Trachea midline Respiratory/Chest: Normal breath sounds, CTA Cardiovascular: S1, S2, No murmur Abdomen/GI:Soft, Non tender, Bowel sounds present Extremities/Musculoskelatal:normal inspection, no edema Neurologic/Psych:AAOX3, grossly no focal neurological deficits Skin: normal color, warm Lab data as noted below. ASSESSMENT & PLAN: Patient is a 61 y/o female who presents for evaluation of melena. Melena: Lower enteroscopy on 02/02/17 with two non bleeding angioplastic lesions cauterized Previously had colonoscopy, EGD and tagged red blood scan by Dr. Pedraza: without any source of bleeding identified Small bowel Endoscopy: No bleeding source identified Bleeding scan: No source of bleeding identified S/P 2 units PRBCs Appreciate GI help S/P pantoprazole ggt >>> Switched PO Protonix monitor Hgb: 10.4 today Aspirin restarted Plan to resume plavix tomorrow if Hb stable Hypotension, Tachycardia likely secondary to dehydration Resolved with IVF's CAD s/p ALMITA (10/2016) Continue to hold aspirin and clopidogrel for now Will restart lisinopril, statin when appropriate Will discuss with cardiology regarding restarting Plavix Left hip OA continue tramadol PRN avoid NSAIDs PT/OT Anxiety To resume venlafaxine when taking PO DVT px: SCD's. DISPOSITION: Continue to monitor Likely discharge in next 48 hours if stable PROCEDURES: BLEEDING SCAN: No abnormal radiotracer uptake seen within the small or large bowel to suggest active GI bleed. EGD: The esophagus was normal. The stomach pouch was normal. 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 The anastamosis was unremarkable, with suture material at the anastamosis. The afferent and efferent loops were intubated and were unremarkable. No source of bleeding noted. Impression: No evidence of bleeding or source of bleeding identified. Recommendation: - Discharge patient to floor. Bleeding scan today. Vital Signs: Date Time Temp Pulse Resp B/P Pulse Ox O2 Delivery O2 Flow Rate FiO2 02/13/17 12:00 Room Air 02/13/17 11:45 36.7 68 20 140/85 96 02/13/17 08:00 Room Air 02/13/17 07:25 36.4 84 20 141/84 98 02/13/17 04:28 36.6 66 18 135/83 96 Room Air 02/13/17 04:00 Room Air 02/13/17 00:00 Room Air 02/12/17 23:10 36.4 76 18 130/85 97 Room Air 02/12/17 20:00 100 Room Air 02/12/17 19:39 36.7 89 16 129/82 100 Room Air 02/12/17 16:00 98 Room Air 02/12/17 15:03 36.8 78 18 123/81 98 Lab Results: Results Past 24 Hours Test 02/12/17 16:00 02/13/17 05:54 Range/Units Hemoglobin 9.2 10.4 12.0-16.0 g/dL Hematocrit 27.8 31.1 37-47 % Sodium Level 142 136-145 mmol/L Potassium Level 3.7 3.5-5.1 mmol/L Chloride Level 105 98-107 mmol/L Carbon Dioxide Level 27 21-32 mmol/L Anion Gap 10.0 3-11 mmol/L Blood Urea Nitrogen 7 7-18 mg/dl Creatinine 0.61 0.60-1.20 mg/dl Est Creatinine Clear Calc Drug Dose 80.8 ml/min Estimated GFR () 112.6 Estimated GFR (Non- 97.2 BUN/Creatinine Ratio 12.1 10-20 Random Glucose 105 70-99 mg/dl Calcium Level 8.8 8.5-10.1 mg/dl
[2017-02-13] MEDS ORDERED: LISINOPRIL 5 MG TAB PO ONE (14:45)
[2017-02-14] VITALS (7 sets, daily range): BP systolic 115–125; BP diastolic 77–83; PULSE 79–80; TEMP 36.4–36.8; O2SAT 96–99
[2017-02-14] MEDS: OXYCODONE/ACETAMINOPHEN 5-325 TAB PO PRN ×2 (01:14→07:22)
[2017-02-14] MEDS: TRAMADOL HCL 50 MG TAB PO PRN (04:56)
[2017-02-14 06:22] LABS: HEMATOCRIT 29.6 % (37-47)
[2017-02-14] MEDS: VENLAFAXINE HCL XR 75 MG CAPXR PO SCH (07:55)
[2017-02-14] MEDS: PANTOprazole SOD 40 MG TAB PO SCH (07:56)
[2017-02-14] MEDS: ASPIRIN 81 MG ECTAB PO SCH (07:56)
[2017-02-14] MEDS ORDERED: LISINOPRIL 5 MG TAB PO SCH (09:00)
[2017-02-14] MEDS ORDERED: CLOPIDOGREL BISULFATE 75 MG TAB PO SCH (09:00)
--- NOTE | 2017-02-14 14:26 | Progress Note ---
Internal Med Progress Note Date of Service: Feb 14, 2017. Provider Documentation: SUBJECTIVE: Patient is seen and examined at bedside. Denies any bleeding issues since last 3 days. Denies abd pain, diarrhea, chest pain, SOB. Family at bedside. OBJECTIVE: Vital Signs-as noted below Physical Exam: Vitals signs as noted above General Appearance:Moderately built and nourished, no apparent distress Head: normocephalic, Atraumatic Eyes: normal inspection, EOMI, PERRLA Neck: supple, no JVD, Trachea midline Respiratory/Chest: Normal breath sounds, CTA Cardiovascular: S1, S2, No murmur Abdomen/GI:Soft, Non tender, Bowel sounds present Extremities/Musculoskelatal:normal inspection, no edema Neurologic/Psych:AAOX3, grossly no focal neurological deficits Skin: normal color, warm Lab data as noted below. ASSESSMENT & PLAN: Patient is a 61 y/o female who presents for evaluation of melena. Melena: Lower enteroscopy on 02/02/17 with two non bleeding angioplastic lesions cauterized Previously had colonoscopy, EGD and tagged red blood scan by Dr. Pedraza: without any source of bleeding identified Small bowel Endoscopy: No bleeding source identified Bleeding scan: No source of bleeding identified S/P 2 units PRBCs Appreciate GI help S/P pantoprazole ggt >>> Switched PO Protonix monitor Hgb: 9.7 today Aspirin and Plavix restarted, No further bleeding Hypotension, Tachycardia likely secondary to dehydration Resolved with IVF's CAD s/p ALMITA (10/2016) Continue aspirin, clopidogrel Continue lisinopril, statin Left hip OA continue tramadol PRN avoid NSAIDs PT/OT Anxiety To resume venlafaxine when taking PO DVT px: SCD's. DISPOSITION: Continue to monitor Plan to discharge home today Follow up with on 02/17/17 at 9:10AM Follow up with your certified registered nurse anesthetist as advised Seek Immediate medical attention if your bleeding reoccurs or worsens PROCEDURES: BLEEDING SCAN: No abnormal radiotracer uptake seen within the small or large bowel to suggest active GI bleed. EGD: The esophagus was normal. The stomach pouch was normal. 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 The anastamosis was unremarkable, with suture material at the anastamosis. The afferent and efferent loops were intubated and were unremarkable. No source of bleeding noted. Impression: No evidence of bleeding or source of bleeding identified. Recommendation: - Discharge patient to floor. Bleeding scan today. Vital Signs: Date Time Temp Pulse Resp B/P Pulse Ox O2 Delivery O2 Flow Rate FiO2 02/14/17 12:00 Room Air 02/14/17 11:47 36.6 80 16 125/83 97 Room Air 02/14/17 08:00 Room Air 02/14/17 07:20 36.4 79 16 122/82 96 Room Air 02/14/17 04:38 36.4 80 18 115/77 98 Room Air 02/14/17 04:00 96 Room Air 02/14/17 00:00 96 Room Air 02/13/17 23:45 36.5 75 18 107/72 95 Room Air 02/13/17 20:00 98 Room Air 02/13/17 19:00 36.7 81 20 121/79 97 02/13/17 17:25 84 141/89 02/13/17 16:00 98 Room Air 02/13/17 15:16 36.7 84 20 122/84 98 Lab Results: Results Past 24 Hours Test 02/14/17 06:07 Range/Units Hemoglobin 9.7 12.0-16.0 g/dL Hematocrit 29.6 37-47 %
[2017-02-14] MEDS ORDERED: TRAM-10 PO (14:50)
--- NOTE | 2017-02-14 14:52 | Discharge Summary ---
Discharge Summary Date of Service Feb 14, 2017. Discharge Summary Admission Date: Feb 10, 2017 at 18:11 Discharge Date: Feb 14, 2017 Discharge Disposition: Home Principal Diagnosis: Melena Procedures: BLEEDING SCAN: No abnormal radiotracer uptake seen within the small or large bowel to suggest active GI bleed. EGD: The esophagus was normal. The stomach pouch was normal. 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 The anastamosis was unremarkable, with suture material at the anastamosis. The afferent and efferent loops were intubated and were unremarkable. No source of bleeding noted. Impression: No evidence of bleeding or source of bleeding identified. Recommendation: - Discharge patient to floor. Bleeding scan today. Consultations: GI Pending Studies/Follow-Up: Follow up with on 02/17/17 at 9:10AM Follow up with your hr payroll coordinator as advised Medication Reconciliation Continued Medications: Albuterol (Ventolin Hfa) 60 Puffs/5400 Mcg Aers 2 PUFF INH Q4 PRN for Wheezing Alprazolam (Xanax) 0.5 Mg Tab 0.5 MG PO TID PRN for Anxiety, TAB Aspirin (Aspirin Ec) 81 Mg Tab 81 MG PO DAILY Atorvastatin (Lipitor) 40 Mg Tab 40 MG PO DAILY, TAB Calcium Carbonate-Vitamin D W/ (Caltrate 600 Plus) 1 Tab Tab 1 TAB PO BID, TAB Cholecalciferol (Vitamin D 1000 Unit) 1,000 Unit Cap 3000 INTER.UNIT PO DAILY, CAP Clopidogrel (Plavix) 75 Mg Tab 75 MG PO DAILY, TAB Cyanocobalamin (Vitamin B-12) 1,000 Mcg Tab 2500 MCG PO MONTHLY, TAB Lisinopril (Prinivil) 5 Mg Tab 5 MG PO DAILY, TAB Magnesium Oxide (Mag-Ox) 400 Mg Tab 400 MG PO DAILY, TAB Multivitamins/Minerals (Mvi With Minerals) Tab 1 TAB PO DAILY, TAB Nitroglycerin (Nitrostat) 0.4 Mg Tab 0.4 MG UT PRN, BTL Omeprazole (Prilosec) 20 Mg Capcr 20 MG PO DAILY, CAP Tramadol (Ultram) 50 Mg Tab 50 MG PO Q6 PRN for Pain for 10 Days, #10 TAB (This prescription has been renewed) Ubiquinol (Ubiquinol) 100 Mg Cap 200 MG PO DAILY Venlafaxine Hcl (Effexor Xr) 75 Mg Cap 1 CAP PO DAILY for 30 Days, #30 CAP Discontinued Medications: Colchicine (Colchicine) 0.6 Mg Tab 0.6 MG PO BID, TAB Admission Information HPI (per Admitting provider): Patient is a 61 y/o female with multiple medical problems who presents with melena. Patient was recently hospitalized at [facility] from 01/24-01/26 and was then transferred to [place] from 01/26-02/04 for melena. Patient was evaluated by GI, Cardiology and Rheumatology. Patient had an EGD here that was unremarkable and a colonoscopy that showed blood throughout the colon. Patient required blood transfusions. Patient was transferred to [place], where she had a lower enteroscopy which demonstrated two small localized angiodysplastic lesions without bleeding in the proximal ascending colon and cecum. These were cauterized, although they were not felt to be the source of bleeding as blood had been seen proximal to these lesions. Patient also had a left hip steroid injection done by Rheum while hospitalized. Patient was resumed on Plavix and aspirin was decreased to 81mg daily; patient had a recent ALMITA placed in 2015. Pantoprazole was also changed to omeprazole. Patient notes that she had been doing relatively well since discharge until today, when she noticed black stools. The first BM was black and formed, but subsequent BM's were black, loose and sticky. She adamantly denies taking any NSAIDs. She has been taking tramadol PRN for her hip pain. She denies any abdominal pain. In the ED, patient was tachycardic and hypotensive, which improved with IVF's. Hgb was ~11. Physical Exam (per Admitting): General- awake; alert; NAD Eyes- EOMI; no scleral icterus Neck- no stridor; trachea midline Lungs- CTA bilaterally; no wheezes/crackles Heart- RRR; no m/r/g Abdomen- soft; NTND; nBS Back- no gross abnormalities Extremities- no c/c/e; no deformity Neuro- no focal deficits Skin- no appreciable rash or bruises . Hospital Course Patient is a 61 y/o female who presents for evaluation of melena. Melena: Lower enteroscopy on 02/02/17 with two non bleeding angioplastic lesions cauterized Previously had colonoscopy, EGD and tagged red blood scan by Dr. Pedraza: without any source of bleeding identified Small bowel Endoscopy: No bleeding source identified Bleeding scan: No source of bleeding identified S/P 2 units PRBCs Appreciate GI help S/P pantoprazole ggt >>> Switched PO Protonix monitor Hgb: 9.7 today Aspirin and Plavix restarted, No further bleeding Hypotension, Tachycardia likely secondary to dehydration Resolved with IVF's CAD s/p ALMITA (10/2016) Continue aspirin, clopidogrel Continue lisinopril, statin Left hip OA continue tramadol PRN avoid NSAIDs PT/OT Anxiety To resume venlafaxine when taking PO DVT px: SCD's. DISPOSITION: Continue to monitor Plan to discharge home today Follow up with on 02/17/17 at 9:10AM Follow up with your hr payroll coordinator as advised Seek Immediate medical attention if your bleeding reoccurs or worsens PROCEDURES: BLEEDING SCAN: No abnormal radiotracer uptake seen within the small or large bowel to suggest active GI bleed. EGD: The esophagus was normal. The stomach pouch was normal. 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 The anastamosis was unremarkable, with suture material at the anastamosis. The afferent and efferent loops were intubated and were unremarkable. No source of bleeding noted. Impression: No evidence of bleeding or source of bleeding identified. Recommendation: - Discharge patient to floor. Bleeding scan today. Total time spent on discharge = 35 Minutes This includes examination of the patient, discharge planning, medication reconciliation, and communication with other providers. Discharge Instructions Discharge Instructions Date of Service Feb 14, 2017. Admission Reason for Admission: Melena Discharge Discharge Diagnosis / Problem: Melena Discharge Goals Goal(s): Decrease discomfort, Improve function Activity Recommendations Activity Limitations: resume your previous activity Exercise/Sports Limitations: as tolerated . Instructions / Follow-Up Instructions / Follow-Up Follow up with on 02/17/17 at 9:10AM Follow up with your hr payroll coordinator as advised Seek Immediate medical attention if your bleeding reoccurs or worsens Current Hospital Diet Patient's current hospital diet: Low Fiber Diet Discharge Diet Recommended Diet: Low Fiber Diet Pending Studies Studies pending at discharge: no Medical Emergencies . Who to Call and When: Medical Emergencies: If at any time you feel your situation is an emergency, please call 911 immediately. . Non-Emergent Contact Non-Emergency issues call your: Primary Care Provider, Training Engineer Call Non-Emergent contact if: you have a fever, your pain is not controlled, your pain is worsening, your pain is unusual for you, you have any medication questions If your bleeding reoccurs . . "Provider Documentation" section prepared by Aldo Stevens. VTE Core Measure Inpt VTE Proph given/why not?: SCD's
== END 2017-02-14 15:26 | disposition home or self-care (01) | DRG 379 ==
LOC: ENRESERVDT → ENRESERVTM → C.EDB 14:17 → EEVIPCON 18:11 → C.MED 18:11
PROVIDERS: ADMIT Internal Medicine; ATTEND Internal Medicine
PROC: 0DJ08ZZ Inspection of Upper Intestinal Tract, Via Natural or Artificial Opening Endoscopic (ICD-10-PCS; principal; 2017-02-11 09:52)
DX: K92.1 Melena (principal); I95.9 Hypotension, unspecified; R00.0 Tachycardia, unspecified; E86.0 Dehydration; I25.10 Atherosclerotic heart disease of native coronary artery without angina pectoris; E66.9 Obesity, unspecified; I10 Essential (primary) hypertension; K21.9 Gastro-esophageal reflux disease without esophagitis; M16.12 Unilateral primary osteoarthritis, left hip; J45.909 Unspecified asthma, uncomplicated; G47.33 Obstructive sleep apnea (adult) (pediatric); E78.5 Hyperlipidemia, unspecified; G43.909 Migraine, unspecified, not intractable, without status migrainosus; F32.9 Major depressive disorder, single episode, unspecified; Z98.84 Bariatric surgery status; D64.9 Anemia, unspecified; F41.9 Anxiety disorder, unspecified; I25.2 Old myocardial infarction; Z87.891 Personal history of nicotine dependence; Z79.82 Long term (current) use of aspirin; Z95.5 Presence of coronary angioplasty implant and graft; Z68.26 Body mass index [BMI] 26.0-26.9, adult; Z79.02 Long term (current) use of antithrombotics/antiplatelets; Z99.89 Dependence on other enabling machines and devices; Z79.899 Other long term (current) drug therapy

== ENCOUNTER 2017-03-13 10:37 | Observation (INO) | payer OTHER ==
[~2017-03-13] VITALS: Ht 154.9 cm; Wt 63.1 kg
[~2017-03-13 10:37] MED LIST changes: +ALPR-411 PO; +ASPI81TA28 PO; +ATOR-24 PO; -ATVI IV; +CALCTAB7 PO; +CHOL100027 PO; +CLOP1TAB15 PO; +CYAN10005 PO; +LISI-729 PO; +MAGN400T6 PO; +MULT-513 PO; +NTRGSL/4 UT; +PRLSR20 PO; -PROTONIX IV; +TRAM-10 PO; +UBIQ1CAP8 PO; +VENL75CA PO
[2017-03-13] MEDS ORDERED: ASPIRIN 81 MG CHEW PO STA (11:10)
[2017-03-13] MEDS ORDERED: SODIUM CHLORIDE 0.9% 1000ML 1,000 ML IV STA (11:10)
[2017-03-13] MEDS ORDERED: ONDANSETRON INJ 2 MG/ML 2 ML VIAL IV STA ×2 (11:10→11:52)
[2017-03-13 11:23] LABS: BASO % 0.5 %; BASO ABS # 0.02 K/uL (0-0.2); COMPLETE YES; EOS % 0.8 %; HEMATOCRIT 36.1 % (37-47); IG% 0.3 %; LYMPH % 30.5 %; MEAN CELL VOLUME 87.4 fL (80-100); MEAN CORPUSCULAR HEMOGLOBIN 28.8 pg (25-34); MONO % 8.9 %; PLATELET COUNT 251 K/uL (130-400); RED BLOOD COUNT 4.13 M/uL (4.2-5.4); WHITE BLOOD COUNT 3.93 K/uL (4.8-10.8)
[2017-03-13 11:31] LABS: CALCIUM 8.8 mg/dl (8.5-10.1); CREATININE 0.75 mg/dl (0.60-1.20); POTASSIUM 3.8 mmol/L (3.5-5.1)
[2017-03-13 11:38] LABS: INR 0.9 (0.9-1.1); PARTIAL THROMBOPLASTIN RATIO 0.9
--- NOTE | 2017-03-13 12:02 | DIAGNOSTIC IMAGING REPORT ---
CHEST ONE VIEW PORTABLE HISTORY: Atypical CHEST PAIN COMPARISON: None. FINDINGS: The lungs are clear. Cardiac silhouette is normal in size. No pleural effusions. No pneumothorax. IMPRESSION: No acute process. Electronically signed by: Maykel Leigh M.D. 03/13/2017 12:00 PM Dictated Date/Time: 03/13/2017 11:59 AM
[2017-03-13] MEDS ORDERED: METOPROLOL TARTRATE 1 MG/ML VIAL IV STA (12:22)
--- NOTE | 2017-03-13 12:37 | EMERGENCY ROOM VISIT NOTE ---
History First contact with patient: 11:00 Chief Complaint: CHEST PAIN Stated Complaint: CHEST PAIN - TOOK 2 NITRO Nursing Triage Summary: Pt reports L sided chest pain began at 0930 this AM. Pt reports pain radiates to L arm and sometimes into her jaw. Pt took 2 nitro tabs and aspirin OPERA SINGER. Pt also reports experiencing chest pain on and off for the last 2 days accompanied by SOB. History of Present Illness The patient is a 61 year old female, history of NSTEMI status post catheterization with a drug-eluting stent to the diagonal branch in October 2016, who presents to the emergency department with complaint of left-sided chest pain, jaw/neck pain and left upper extremity pain since 9:30 AM this morning. The patient was not doing any exertional activities. The patient also reports shortness of breath, nausea and diaphoresis. The patient took a baby aspirin and 2 nitroglycerin tablets within 5 minutes without any relief of her pain. Patient currently rates her discomfort a 2 out of 10. The patient denies any recent injury to her neck or left shoulder. She denies any other alleviating regular any factors for her pain. She has had intermittent brief chest discomfort over the past few days. She denies any recent upper respiratory infection. She denies any history of blood clots. She has a strong family history of coronary artery disease, with her mother dying at age 53 from a myocardial infarction. Review of Systems HEENT: Denies dizziness, visual problems, hearing loss, tinnitus. Denies difficulty swallowing or oral lesions. PULMONARY: Denies cough, sputum production or hemoptysis. Patient does report shortness of breath. CARDIOVASCULAR: Denies palpitations, dyspnea on exertion, orthopnea or peripheral edema. Otherwise see history of present illness. GASTROINTESTINAL: Denies diarrhea, constipation or abdominal pain. Patient does report nausea. GENITOURINARY: Denies dysuria, frequency, urgency or nocturia. NEUROLOGIC: Denies history of epilepsy, CVA, TIA or chronic headaches. MUSCULOSKELETAL: Denies history of joint tenderness/swelling. SKIN: Denies rashes or lesions. PSYCHIATRIC: Denies history of depression or mental illness. ENDOCRINE: Denies history of diabetes or thyroid disorders. Past Medical/Surgical History Medical Problems: (1) Anxiety (2) Asthma (3) Depression (4) GERD (gastroesophageal reflux disease) (5) Hyperlipidemia Nec/Nos (6) Hypertension Nos (7) Melena (8) Migraine (9) Non-STEMI (non-ST elevated myocardial infarction) (10) Obesity, Nos (11) Sleep apnea Surgical Problems: (1) Gastric bypass status for obesity (2) S/P cholecystectomy (3) S/P hernia repair Family History ALS (amyotrophic lateral sclerosis) SISTER Coronary artery disease MOTHER (CABG / age 53) Hypertension MOTHER Social History Smoking Status: Former Smoker Alcohol Use: none Drug Use: none Marital Status: Housing Status: lives with family Occupation Status: employed Current/Historical Medications Scheduled Aspirin (Aspirin Ec), 81 MG PO DAILY Atorvastatin (Lipitor), 40 MG PO DAILY Calcium Carbonate-Vitamin D W/ (Caltrate 600 Plus), 1 TAB PO BID Cholecalciferol (Vitamin D 1000 Unit), 3,000 INTER.UNIT PO DAILY Clopidogrel (Plavix), 75 MG PO DAILY Cyanocobalamin (Vitamin B-12), 2,500 MCG PO MONTHLY Lisinopril (Prinivil), 5 MG PO DAILY Magnesium Oxide (Mag-Ox), 400 MG PO DAILY Multivitamins/Minerals (Mvi With Minerals), 1 TAB PO DAILY Nitroglycerin (Nitrostat), 0.4 MG UT PRN Omeprazole (Prilosec), 20 MG PO DAILY Ubiquinol (Ubiquinol), 200 MG PO DAILY Venlafaxine Hcl (Effexor Xr), 1 CAP PO DAILY Scheduled PRN Albuterol (Ventolin Hfa), 2 PUFF INH Q4 PRN for Wheezing Alprazolam (Xanax), 0.5 MG PO TID PRN for Anxiety Tramadol (Ultram), 50 MG PO Q6 PRN for Pain Allergies Coded Allergies: Hydromorphone (Verified Allergy, Severe, GI SYMPTOMS, 02/10/17) Nortriptyline (Verified Allergy, Severe, MEMORY PROBLEMS, CONFUSION, ) Topiramate (Verified Allergy, Severe, MEMORY PROBLEMS, CONFUSION, 02/10/17) Morphine (Verified Adverse Reaction, Intermediate, nausea, 12/03/16) Codeine (Verified Adverse Reaction, Mild, NAUSEA, 12/03/16) Terazosin (Verified Adverse Reaction, Mild, NAUSEA, 12/03/16) Physical Exam Vital Signs Date Time Temp Pulse Resp B/P Pulse Ox O2 Delivery O2 Flow Rate FiO2 03/13/17 12:00 58 16 127/79 100 Room Air 03/13/17 11:03 63 03/13/17 11:00 100 Room Air 03/13/17 11:00 100 Room Air 03/13/17 10:48 36.4 72 18 126/79 100 Room Air Physical Exam CONSTITUTIONAL: Healthy and well nourished. Alert and oriented X 3 with positive affect. Patient does not appear in any acute distress. She is not diaphoretic on my exam. HEENT: Normocephalic, atraumatic. Pupils equal, round and reactive. Ears and nares are clear. No scleral icterus or conjunctival injection/pallor. NECK: Full active range of motion without discomfort. No tenderness to palpation of the cervical musculature or central cervical spine. Negative lateral gaze test. No JVD or carotid bruits. RESPIRATORY: Clear to auscultation bilaterally with no wheezing, crackles, rhonchi or stridor. Deep breathing does not worsen her discomfort. CARDIOVASCULAR: Regular rate and rhythm with no murmurs, rubs or gallops. GASTROINTESTINAL: Bowel sounds present in all quadrants. No tenderness to palpation, rigidity, guarding or rebound. Negative CVA tenderness. Negative McBurney's point tenderness. MUSCULOSKELETAL: Full range of motion of all joints without discomfort. No tenderness to palpation about the shoulder, distal clavicle, acromion clavicular joint, bicipital groove or biceps/triceps musculature. INTEGUMENTARY: No rash or other significant dermatologic conditions noted. HEMATOLOGIC: No ecchymosis or petechiae. NEUROLOGIC: Cranial nerves II-XII grossly intact. No focal neurologic deficits noted. Medical Decision & Procedures ER Provider Diagnostic Interpretation: My interpretation of an initial ECG shows a normal sinus rhythm of [address] elevation or other conduction abnormalities. My interpretation of a portable chest x-ray does not show any consolidations, pneumothorax or widened mediastinum. Radiologist report is as follows: Laboratory Results 03/13/17 11:00 Red Blood Count 4.13, Mean Corpuscular Volume 87.4, Mean Corpuscular Hemoglobin 28.8, Mean Corpuscular Hemoglobin Concent 33.0, Mean Platelet Volume 10.0, Neutrophils (%) (Auto) 59.0, Lymphocytes (%) (Auto) 30.5, Monocytes (%) (Auto) 8.9, Eosinophils (%) (Auto) 0.8, Basophils (%) (Auto) 0.5, Neutrophils # (Auto) 2.32, Lymphocytes # (Auto) 1.20, Monocytes # (Auto) 0.35, Eosinophils # (Auto) 0.03, Basophils # (Auto) 0.02 03/13/17 11:00 Test 03/13/17 11:00 03/13/17 11:08 White Blood Count 3.93 K/uL (4.8-10.8) Red Blood Count 4.13 M/uL (4.2-5.4) Hemoglobin 11.9 g/dL (12.0-16.0) Hematocrit 36.1 % (37-47) Mean Corpuscular Volume 87.4 fL (80-100) Mean Corpuscular Hemoglobin 28.8 pg (25-34) Mean Corpuscular Hemoglobin Concent 33.0 g/dl (32-36) Platelet Count 251 K/uL (130-400) Mean Platelet Volume 10.0 fL (7.4-10.4) Neutrophils (%) (Auto) 59.0 % Lymphocytes (%) (Auto) 30.5 % Monocytes (%) (Auto) 8.9 % Eosinophils (%) (Auto) 0.8 % Basophils (%) (Auto) 0.5 % Neutrophils # (Auto) 2.32 K/uL (1.4-6.5) Lymphocytes # (Auto) 1.20 K/uL (1.2-3.4) Monocytes # (Auto) 0.35 K/uL (0.11-0.59) Eosinophils # (Auto) 0.03 K/uL (0-0.5) Basophils # (Auto) 0.02 K/uL (0-0.2) RDW Standard Deviation 55.2 fL (36.4-46.3) RDW Coefficient of Variation 17.3 % (11.5-14.5) Immature Granulocyte % (Auto) 0.3 % Immature Granulocyte # (Auto) 0.01 K/uL (0.00-0.02) Prothrombin Time 10.0 SECONDS (9.0-12.0) Prothromb Time International Ratio 0.9 (0.9-1.1) Activated Partial Thromboplast Time 22.2 SECONDS (21.0-31.0) Partial Thromboplastin Ratio 0.9 Anion Gap 6.0 mmol/L (3-11) Est Creatinine Clear Calc Drug Dose 66.0 ml/min Estimated GFR () 99.0 Estimated GFR (Non- 85.4 BUN/Creatinine Ratio 17.0 (10-20) Calcium Level 8.8 mg/dl (8.5-10.1) Total Bilirubin 0.5 mg/dl (0.2-1) Direct Bilirubin 0.1 mg/dl (0-0.2) Aspartate Amino Transf (AST/SGOT) 20 U/L (15-37) Alanine Aminotransferase (ALT/SGPT) 30 U/L (12-78) Alkaline Phosphatase 99 U/L (45-117) Total Creatine Kinase 55 U/L (26-192) Total Protein 7.1 gm/dl (6.4-8.2) Albumin 3.9 gm/dl (3.4-5.0) Lipase 91 U/L (73-393) Bedside D-Dimer 282 ng/mlFEU (0-450) Bedside Troponin I 0.000 ng/ml (0-0.045) The above labs were reviewed. Bedside d-dimer and troponin are normal. Remaining labs are otherwise grossly normal with a mildly depressed hemoglobin of 11.9. CK is normal. Medications Administered Medications (Trade) Dose Ordered Sig/Dulce Maria Route Start Time Stop Time Status Last Admin Dose Admin Ondansetron HCl 4 mg 4 mg NOW STAT IV 03/13/17 11:10 03/13/17 11:13 DC 03/13/17 11:24 4 MG Sodium Chloride (Nss 1000ml) 1,000 ml @ 999 mls/hr Q1H1M STAT IV 03/13/17 11:10 03/13/17 12:10 DC 03/13/17 11:24 999 MLS/HR Aspirin (Aspirin Chew) 243 mg NOW STAT PO 03/13/17 11:10 03/13/17 11:13 DC 03/13/17 11:24 243 MG Ondansetron HCl (Zofran Inj) 4 mg NOW STAT IV 03/13/17 11:52 03/13/17 11:54 DC 03/13/17 12:01 4 MG ED Course Patient history and physical exam were performed. Nurse's notes were reviewed. Vital signs were reviewed and were normal. O2 saturation is 100% on room air. The patient is normotensive and not tachycardic. IV access was established, and labs were drawn. Patient was administered Zofran 4 mg IVP for nausea. She refused any analgesics. Because her sublingual nitroglycerin did not provide any relief of discomfort at home, I elected to defer a nitroglycerin trial. ECG and portable chest x-ray were normal. Review of labs shows a normal bedside troponin and d-dimer. She is mildly anemic. Upon reassessment, the patient was feeling nauseated again, and administered a second dose of Zofran 4 mg IVP. This completely resolved her nausea. The case was further discussed with Dr. Rbuin, ED attending physician, who suggested consulting [facility] cardiology given her recent STEMI and stenting. I therefore spoke with Dr. Urbina, [facility] radial arm saw operator, who suggested 23 hour observation. After review medications, he suggested administering metoprolol tartrate 12.5 mg IV twice a day with her first dose now. He suggested hospitalist consultation as well. I therefore spoke with LISA Bradford with the [facility] hospitalist service. Please see their dictation for further treatment and final disposition. Medical Decision Patient presents to the emergency department with complaints of intermittent left-sided chest pain with diaphoresis, nausea and left upper extremity pain. The patient has a significant history of recent non-STEMI and drug-eluting stent placed. Her current ECG, chest x-ray and cardiac isoenzymes are normal. She will require further serial testing. D-dimer is normal, therefore I do not suspect pulmonary emboli. Her chest x-ray does not show any evidence for pneumothorax or cardiomegaly. I do not suspect GI referred pain. Impression Primary Impression: Left sided chest pain Additional Impressions: History of non-ST elevation myocardial infarction (NSTEMI) History of heart artery stent Departure Information Referrals Danilo Perez M.D. (PCP) Patient Instructions My [facility] Problem Qualifiers
[2017-03-13 12:45] VITALS: O2SAT 99; Ht 154.9 cm; Wt 63.1 kg
[2017-03-13] MEDS ORDERED: FERR1TAB13 PO (13:14)
[2017-03-13] MEDS ORDERED: OXYC-57 PO (13:14)
[2017-03-13] MEDS ORDERED: ALPRAZOLAM 0.5 MG TAB PO PRN (13:15)
[2017-03-13] MEDS ORDERED: NITROGLYCERIN 0.4 MG SL PER TAB CHARGE SL PRN (13:15)
[2017-03-13] MEDS ORDERED: ONDANSETRON INJ 2 MG/ML 2 ML VIAL IV PRN (13:15)
[2017-03-13] MEDS ORDERED: OXYCODONE/ACETAMINOPHEN 5-325 TAB PO PRN (13:15)
[2017-03-13] MEDS ORDERED: TRAMADOL HCL 50 MG TAB PO PRN (13:15)
[2017-03-13] MEDS ORDERED: LISINOPRIL 2.5 MG TAB PO ONE (13:27)
[2017-03-13] MEDS ORDERED: ATORVASTATIN 40 MG TAB PO ONE (13:27)
[2017-03-13] MEDS ORDERED: CLOPIDOGREL BISULFATE 75 MG TAB PO ONE (13:27)
--- NOTE | 2017-03-13 13:59 | History and Physical ---
History & Physical Date & Time of Service: Mar 13, 2017 at 13:25 Chief Complaint: Chest Pain Primary Care Physician: Danilo Perez M.D. History of Present Illness 61 year old female who presents to the ER with chest pain. Patient was admitted to [facility] 10/2016 with NSTEMI and underwent ALMITA x 1 to proximal diagonal. She was then admitted to [facility] and [facility] in December and January for GI bleeding. Patient had an extensive work up however no definite source of bleeding was noted. Patient's ASA and Plavix were resumed. Patient reports that today while walking in her yard she developed left sided chest pain that she describes as a sharp pressure. She had radiation of the pain into her her arm and the left side of her neck. Patient rates her pain #7/10 at its worst. She had associated lightheadedness, nausea, shortness of breath, and nausea. She went into her house and took 2 nitro 5 mins apart which had no affect on her symptoms. She then presented to the ER and symptoms have resolved. Patient reports that over the past couple of days she has had a few episodes of left sided chest pain however not as severe and only lasted for a few seconds and would resolve on its own. Patient reports she otherwise has been feeling well recently. She reports she has been tolerating her daily activities without any problems. No orthopnea or lower extremity edema. She denies abdominal pain, vomiting, and diarrhea. No BRBPR or melena. Reports her stools are chronically dark from iron replacement. She denies fever and chills. No urinary symptoms. In the ER, patient's initial trop is negative and EKG does not show any acute ST changes. Vitals are stable. She is currently chest pain free. Past Medical/Surgical History Medical Problems: (1) Anxiety Status: Chronic (2) Asthma Status: Chronic (3) CAD (coronary artery disease) Permanent Comment: 10/2016 - ALMITA to proximal diagonal Status: Chronic (4) Depression Status: Chronic (5) GERD (gastroesophageal reflux disease) Status: Chronic (6) GI bleed Permanent Comment: no source of bleeding identified Status: Chronic (7) Hyperlipidemia Nec/Nos Status: Chronic (8) Hypertension Nos Status: Chronic (9) Migraine Status: Chronic (10) Sleep apnea Permanent Comment: CPAP Status: Chronic Surgical Problems: (1) Gastric bypass status for obesity Status: Chronic (2) S/P cholecystectomy Status: Chronic (3) S/P hernia repair Status: Chronic Family History ALS (amyotrophic lateral sclerosis) SISTER Coronary artery disease MOTHER (CABG / age 53) Hypertension MOTHER Social History Smoking Status: Former Smoker Smokeless Tobacco Use: Yes Marital Status: Housing status: lives with family Immunizations History of Tetanus Vaccine?: Yes Tetanus Immunization Date: May 27, 2012 History of Pneumococcal: Yes Pneumococcal Date: Jun 07, 2013 Multi-Drug Resistant Organisms History of MDRO: No Allergies Coded Allergies: Hydromorphone (Verified Allergy, Severe, GI SYMPTOMS, 02/10/17) Nortriptyline (Verified Allergy, Severe, MEMORY PROBLEMS, CONFUSION, ) Topiramate (Verified Allergy, Severe, MEMORY PROBLEMS, CONFUSION, 02/10/17) Morphine (Verified Adverse Reaction, Intermediate, nausea, 12/03/16) Codeine (Verified Adverse Reaction, Mild, NAUSEA, 12/03/16) Terazosin (Verified Adverse Reaction, Mild, NAUSEA, 12/03/16) Home Medications Scheduled Aspirin (Aspirin Ec), 81 MG PO DAILY Atorvastatin (Lipitor), 40 MG PO DAILY Calcium Carbonate-Vitamin D W/ (Caltrate 600 Plus), 1 TAB PO BID Cholecalciferol (Vitamin D 1000 Unit), 3,000 INTER.UNIT PO DAILY Clopidogrel (Plavix), 75 MG PO DAILY Cyanocobalamin (Vitamin B-12), 2,500 MCG PO WK Ferrous Sulfate (Kp Ferrous Sulfate), 1 TAB PO BID Lisinopril (Prinivil), 2.5 MG PO DAILY Magnesium Oxide (Mag-Ox), 400 MG PO DAILY Multivitamins/Minerals (Mvi With Minerals), 1 TAB PO BID Nitroglycerin (Nitrostat), 0.4 MG UT PRN Omeprazole (Prilosec), 20 MG PO DAILY Ubiquinol (Ubiquinol), 200 MG PO DAILY Venlafaxine Hcl (Effexor Xr), 1 CAP PO DAILY Scheduled PRN Albuterol (Ventolin Hfa), 2 PUFF INH Q4 PRN for Wheezing Alprazolam (Xanax), 0.5 MG PO TID PRN for Anxiety Oxycodone/Acetaminophen 5MG/325MG (Percocet 5MG/325MG), 1 TABLET PO Q6H PRN for Pain Tramadol (Ultram), 50 MG PO Q6 PRN for Pain Review of Systems 10 point review of systems was completed with the pertinent positives and negatives noted per the HPI Physical Exam Vital Signs Date Time Temp Pulse Resp B/P Pulse Ox O2 Delivery O2 Flow Rate FiO2 03/13/17 12:45 99 Room Air 03/13/17 12:37 62 24 115/73 99 Room Air 03/13/17 12:22 58 03/13/17 12:00 58 16 127/79 100 Room Air 03/13/17 11:03 63 03/13/17 11:00 100 Room Air 03/13/17 11:00 100 Room Air 03/13/17 10:48 36.4 72 18 126/79 100 Room Air General Appearance: no apparent distress Head: normocephalic Eyes: normal inspection ENT: hearing grossly normal Neck: supple, no JVD Respiratory/Chest: lungs clear, normal breath sounds, + pertinent finding ( left chest wall tenderness) Cardiovascular: regular rate, rhythm, no edema, normal peripheral pulses Abdomen/GI: normal bowel sounds, non tender, soft Extremities/Musculoskelatal: normal inspection, no calf tenderness Neurologic/Psych: no motor/sensory deficits, alert, normal mood/affect, oriented x 3 Skin: normal color, warm/dry Diagnostics Laboratory Results Results Past 24 Hours Test 03/13/17 11:00 03/13/17 11:08 Range/Units White Blood Count 3.93 4.8-10.8 K/uL Red Blood Count 4.13 4.2-5.4 M/uL Hemoglobin 11.9 12.0-16.0 g/dL Hematocrit 36.1 37-47 % Mean Corpuscular Volume 87.4 80-100 fL Mean Corpuscular Hemoglobin 28.8 25-34 pg Mean Corpuscular Hemoglobin Concent 33.0 32-36 g/dl Platelet Count 251 130-400 K/uL Mean Platelet Volume 10.0 7.4-10.4 fL Neutrophils (%) (Auto) 59.0 % Lymphocytes (%) (Auto) 30.5 % Monocytes (%) (Auto) 8.9 % Eosinophils (%) (Auto) 0.8 % Basophils (%) (Auto) 0.5 % Neutrophils # (Auto) 2.32 1.4-6.5 K/uL Lymphocytes # (Auto) 1.20 1.2-3.4 K/uL Monocytes # (Auto) 0.35 0.11-0.59 K/uL Eosinophils # (Auto) 0.03 0-0.5 K/uL Basophils # (Auto) 0.02 0-0.2 K/uL RDW Standard Deviation 55.2 36.4-46.3 fL RDW Coefficient of Variation 17.3 11.5-14.5 % Immature Granulocyte % (Auto) 0.3 % Immature Granulocyte # (Auto) 0.01 0.00-0.02 K/uL Prothrombin Time 10.0 9.0-12.0 SECONDS Prothromb Time International Ratio 0.9 0.9-1.1 Activated Partial Thromboplast Time 22.2 21.0-31.0 SECONDS Partial Thromboplastin Ratio 0.9 Sodium Level 139 136-145 mmol/L Potassium Level 3.8 3.5-5.1 mmol/L Chloride Level 106 98-107 mmol/L Carbon Dioxide Level 27 21-32 mmol/L Anion Gap 6.0 3-11 mmol/L Blood Urea Nitrogen 13 7-18 mg/dl Creatinine 0.75 0.60-1.20 mg/dl Est Creatinine Clear Calc Drug Dose 66.0 ml/min Estimated GFR () 99.0 Estimated GFR (Non- 85.4 BUN/Creatinine Ratio 17.0 10-20 Random Glucose 96 70-99 mg/dl Calcium Level 8.8 8.5-10.1 mg/dl Total Bilirubin 0.5 0.2-1 mg/dl Direct Bilirubin 0.1 0-0.2 mg/dl Aspartate Amino Transf (AST/SGOT) 20 15-37 U/L Alanine Aminotransferase (ALT/SGPT) 30 12-78 U/L Alkaline Phosphatase 99 45-117 U/L Total Creatine Kinase 55 26-192 U/L Total Protein 7.1 6.4-8.2 gm/dl Albumin 3.9 3.4-5.0 gm/dl Lipase 91 73-393 U/L Bedside D-Dimer 282 0-450 ng/mlFEU Bedside Troponin I 0.000 0-0.045 ng/ml Diagnostic Radiology CXR IMPRESSION: No acute process. Impression Assessment and Plan CHEST PAIN, HX CAD - admit to tele - patient presenting with left sided chest pain with radiation into the left arm and neck with associated lightheadedness, nausea, shortness of breath, and diaphoresis; patient took 2 nitro at home without resolution of her pain, so presented to the ER where is she now chest pain free - 10/2016 - NSTEMI with ALMITA to proximal diagonal - noted chest wall tenderness on exam so may have some musculoskeletal component - EKG does not show any acute ST changes, initial troponin negative - continue to cycle cardiac enzymes, check resting echo - noted to be intolerant to beta blockers in the past due to asthma symptoms - for now, will add nitro paste, consider transition to isosorbide - will defer to cardio - continue ASA, Plavix, and beta vickey - case discussed with Dr. Urbina HTN - BP controlled, continue lisinopril HX RECENT GI BLEED - hgb stable, no signs of active bleeding ANXIETY - continue home meds DVT PROPHYLAXIS - SCDs due to recent GI bleeding DISPO - The patient will be placed as observation status for now until further work up is complete. Advanced Directives Existing Living Will: No Existing Power of Acid Pumper: No VTE Prophylaxis VTE Risk Assessment Done? Y/N: Yes Risk Level: Moderate Given or contraindicated: SCD's Note ATTENDING ADDENDUM Record reviewed. Patient interviewed and examined in ED at ~ 13:30. Care coordinated with LISA Bradford. Please refer to her documentation for patient's history. Briefly, 61 YO female with ischemic heart disease. Admitted with non-STEMI in October 2016. Cath demonstrated stenosis first diagonal branch; PCI with ALMITA performed. Subsequently developed postinfarct pericarditis. 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 Remains on aspirin + clopidogrel. No further melena / hematochezia since discharge 02/14/17. Occasional episodes of mild chest pressure with exertion, brief, relieved by rest since her HI in October. Today developed substernal chest pressure while walking in her yard. CP radiated to her neck and was associated with dyspnea and nausea. She took 2 SL NTG tabs at home without relief. Came to ED. She received IV fluids, ondansetron, and aspirin in the ED. Essentially pain-free at time of my assessment. EXAM: General- no distress VS- as noted HEENT- Neck- no JVD, right carotid amplitude > left, no carotid bruits appreciated Lungs- clear to A&P Heart- RRR, no murmur, gallop, or rub appreciated Abdomen- + BS, soft, nontender Extremities- no pretibial edema or calf tenderness; radial pulses intact and symmetric Neuro- alert, oriented DATA: Hgb 11.9. D-dimer 282. Troponin I = 0. Other lab studies as noted. CXR reviewed by undersigned and interpreted by Radiology- normal cardiac silhouette, normal mediastinal shadow, no infiltrates, effusion, CHF. EKG performed at 10:46 reviewed and demonstrated NSR at 63 / minute, no acute ST or T-wave changes. . ASSESSMENT AND PLAN: 61 YO female with CAD, s/p non-STEMI about 4 months ago with PCI first diagonal with ALMITA performed. Now with episode of fairly severe and prolonged chest pressure with light exertion. No immediate relief after 2 SL NTG, but eventual resolution of pain without other anti-anginal meds. Essentially pain-free at time of my assessment. Continue ASA and clopidogrel. No beta vickey - (1) significant wheezing with metoprolol in past (2) bradycardic Add NTP. Continue statin. Check serial cardiac markers and EKG's. Cardiology consulted. Please refer to BLESSING Hernandez's documentation for discussion of other issues. Logan Schmitz MD .
[2017-03-13 14:11] VITALS: O2SAT 99
[2017-03-13] MEDS ORDERED: IV FLUIDS COMPLETED PRN (14:30)
[2017-03-13 15:00] VITALS: BP 128/80; PULSE 70; TEMP 36.3; O2SAT 100
[2017-03-13 15:11] VITALS: BP 132/83; PULSE 67; TEMP 37.1; O2SAT 99
[2017-03-13] MEDS: VENLAFAXINE HCL XR 75 MG CAPXR PO SCH (16:01)
[2017-03-13] MEDS: PANTOprazole SOD 40 MG TAB PO SCH (16:01)
[2017-03-13] MEDS: FERROUS SULFATE 325 MG TAB PO SCH (16:02)
[2017-03-13] MEDS: NITROGLYCERIN OINT 2% 1GM PACKET EXT SCH ×2 (18:01→23:34)
[2017-03-13 19:35] VITALS: BP 122/81; PULSE 68; TEMP 36.4; O2SAT 98
[2017-03-13] MEDS ORDERED: METOPROLOL TARTRATE 1 MG/ML VIAL IV SCH (21:00)
[2017-03-13] MEDS: CALCIUM 600MG + VIT D 400 IU TAB PO SCH (21:18)
[2017-03-13] MEDS: CEROVITE ADV FORMULA TAB PO SCH (21:18)
[2017-03-13] MEDS: ACETAMINOPHEN 325 MG TAB PO PRN (22:05)
[2017-03-13 23:39] VITALS: BP 103/70; PULSE 70; TEMP 36.6; O2SAT 97
[2017-03-14 03:43] VITALS: BP 118/73; PULSE 64; TEMP 36.6; O2SAT 96
[2017-03-14 05:43] LABS: HEMATOCRIT 35.1 % (37-47); MEAN CELL VOLUME 87.3 fL (80-100); MEAN CORPUSCULAR HEMOGLOBIN 28.1 pg (25-34); MEAN CORPUSCULAR HGB CONC 32.2 g/dl (32-36); MEAN PLATELET VOLUME 9.4 fL (7.4-10.4); PLATELET COUNT 220 K/uL (130-400); RED BLOOD COUNT 4.02 M/uL (4.2-5.4); WHITE BLOOD COUNT 4.25 K/uL (4.8-10.8)
[2017-03-14] MEDS: NITROGLYCERIN OINT 2% 1GM PACKET EXT SCH ×2 (06:00→11:44)
[2017-03-14 06:13] LABS: BUN/CREATININE RATIO 19.3 (10-20); CALCIUM 8.7 mg/dl (8.5-10.1); CREATININE 0.66 mg/dl (0.60-1.20); POTASSIUM 4.5 mmol/L (3.5-5.1)
[2017-03-14 07:50] VITALS: BP 123/84; PULSE 61; TEMP 36.7; O2SAT 97
[2017-03-14] MEDS: FERROUS SULFATE 325 MG TAB PO SCH (08:03)
[2017-03-14] MEDS: CALCIUM 600MG + VIT D 400 IU TAB PO SCH (08:04)
[2017-03-14] MEDS: VENLAFAXINE HCL XR 75 MG CAPXR PO SCH (08:04)
[2017-03-14] MEDS: CEROVITE ADV FORMULA TAB PO SCH (08:05)
[2017-03-14] MEDS: PANTOprazole SOD 40 MG TAB PO SCH (08:05)
[2017-03-14] MEDS: ACETAMINOPHEN 325 MG TAB PO PRN (08:12)
[2017-03-14] MEDS ORDERED: UBIQUINOL 200 MG PO SCH (09:00)
[2017-03-14] MEDS ORDERED: CHOLECALCIFEROL 1000 INTER.UNIT TAB PO SCH (09:00)
[2017-03-14] MEDS ORDERED: CLOPIDOGREL BISULFATE 75 MG TAB PO SCH (09:00)
[2017-03-14] MEDS ORDERED: ASPIRIN 81 MG ECTAB PO SCH (09:00)
[2017-03-14] MEDS ORDERED: MAGNESIUM OXIDE 400 MG TAB PO SCH (09:00)
[2017-03-14] MEDS ORDERED: LISINOPRIL 2.5 MG TAB PO SCH (09:00)
[2017-03-14] MEDS ORDERED: ATORVASTATIN 40 MG TAB PO SCH (09:00)
--- NOTE | 2017-03-14 09:27 | ECHOCARDIOGRAM REPORT ---
*NOTICE TO RECEIVING CONSTITUTION PARTY AGENCY This information is strictly Confidential and protected under [place] law. [place] law prohibits you from making any further disclosure of this information unless further disclosure is expressly permitted by the written consent of the person to whom it pertains or is authorized by law. A general authorization for the release of medical or other information is not sufficient for this purpose. Hospital accepts no responsibility if the information is made available to any other person, INCLUDING THE PATIENT. Interpretation Summary * Name: ARNOLD PALMA Study Date: 03/13/2017 03:35 PM BP: 122/73 mmHg * Patient Location: C.2T\S\S230\S\1 HR: 65 * : 1955 (M/d/yyyy) Gender: Female Height: 61 in * Age: 61 yrs Ethnicity: CA Weight: 138 lb * Ordering Physician: Sandra Hernandez * Referring Physician: Self, Referred * Performed By: Juli Pitts RCS * * Reason For Study: CHEST PAIN * BSA: 1.6 m2 * -- Conclusions -- * Normal LV chamber size and wall thickness. * Normal LV systolic function, EF 55-60%. * Mild to moderate hypokinesis of the mid to apical segments of the anterolateral and inferolateral cameron, improved compared to study of 11/13. * Grade I diastolic dysfunction. * Trace mitral regurgitation. * Trace tricuspid regurgitation. * Atrial septal aneurysm incidentally noted, with small, hemodynamically insigificant shunt. Consider daily aspirin for stroke prophylaxis. Closure not currently indicated. Procedure Details * A complete two-dimensional transthoracic echocardiogram was performed (2D, M-mode, Doppler and color flow Doppler). Left Ventricle * The left ventricle is normal in size. * There is normal left ventricular wall thickness. * Left ventricular systolic function is normal. * Ejection Fraction = 60-65%. * Mild to moderate hypokinesis of the mid to apical segments of the anterolateral and inferolateral cameron, improved compared to study of 11/13. Right Ventricle * The right ventricular cavity size is normal (basal dimension <4.2 cm in right ventricular apical 4-chamber view). * The right ventricular systolic function is normal as assessed by tricuspid annular plane systolic excursion (TAPSE) (normal >1.5 cm). Atria * The left atrial size is normal. * Right atrial size is normal. * Atrial septal aneurysm incidentally noted, with small, hemodynamically insigificant shunt. Consider daily aspirin for stroke prophylaxis. Closure not currently indicated. Mitral Valve * The mitral valve anatomy is normal. * There is no mitral valve stenosis. * There is trace mitral regurgitation. Tricuspid Valve * The tricuspid valve anatomy is normal. * There is no tricuspid stenosis. * There is trace tricuspid regurgitation. Aortic Valve * The aortic valve is normal in structure and function. Pulmonic Valve * The pulmonary valve is not well seen, but the Doppler examination is normal without significant regurgitation or stenosis. Pericardium/Pleural * There is no pericardial effusion. Left Ventricular Diastolic Function * Grade I diastolic dysfunction, (abnormal relaxation pattern). MMode 2D Measurements and Calculations IVSd 0.95 cm IVSs 1.0 cm LVIDd 3.4 cm LVIDs 2.1 cm LVPWd 10 cm LVPWs 1.1 cm IVS/LVPW 0.95 FS 37.7 % EDV(Teich) 46.5 ml ESV(Teich) 14.4 ml EF(Teich) 69.0 % EDV(cubed) 38.3 ml ESV(cubed) 9.3 ml EF(cubed) 75.8 % % IVS thick 7.0 % % LVPW thick 14.4 % LV mass(C)d 93.5 grams LV mass(C)dI 57.9 grams/m\S\2 LV mass(C)s 56.8 grams LV mass(C)sI 35.2 grams/m\S\2 SV(Teich) 32.1 ml SI(Teich) 19.9 ml/m\S\2 SV(cubed) 29.1 ml SI(cubed) 18.0 ml/m\S\2 Ao root diam 3.4 cm Ao root area 9.0 cm\S\2 ACS 1.8 cm LA dimension 3.0 cm LA/Ao 0.89 LVOT diam 1.5 cm LVOT area 1.9 cm\S\2 LVAd ap4 23.2 cm\S\2 LVLd ap4 7.3 cm EDV(MOD-sp4) 59.7 ml EDV(sp4-el) 62.4 ml LVAs ap4 14.6 cm\S\2 LVLs ap4 6.7 cm ESV(MOD-sp4) 26.4 ml ESV(sp4-el) 27.2 ml EF(MOD-sp4) 55.7 % EF(sp4-el) 56.5 % LVAd ap2 26.6 cm\S\2 LVLd ap2 7.6 cm EDV(MOD-sp2) 76.8 ml EDV(sp2-el) 79.3 ml LVAs ap2 15.6 cm\S\2 LVLs ap2 6.5 cm ESV(MOD-sp2) 30.3 ml ESV(sp2-el) 31.6 ml EF(MOD-sp2) 60.5 % EF(sp2-el) 60.2 % LVLd %diff 3.9 % EDV(MOD-bp) 66.6 ml LVLs %diff -2.13 % ESV(MOD-bp) 28.1 ml EF(MOD-bp) 57.8 % SV(MOD-sp4) 33.2 ml SI(MOD-sp4) 20.6 ml/m\S\2 SV(MOD-sp2) 46.5 ml SI(MOD-sp2) 28.8 ml/m\S\2 SV(MOD-bp) 38.5 ml SI(MOD-bp) 23.9 ml/m\S\2 SV(sp4-el) 35.3 ml SI(sp4-el) 21.8 ml/m\S\2 SV(sp2-el) 47.7 ml SI(sp2-el) 29.6 ml/m\S\2 Doppler Measurements and Calculations MV E max odell 63.6 cm/sec MV A max odell 66.3 cm/sec MV E/A 0.96 MV P1/2t max odell 64.7 cm/sec MV P1/2t 75.2 msec MVA(P1/2t) 2.9 cm\S\2 MV dec slope 251.9 cm/sec\S\2 MV dec time 0.24 sec Ao V2 max 119.1 cm/sec Ao max PG 5.7 mmHg Ao max PG (full) 0.19 mmHg JODI(V,A) 1.8 cm\S\2 JODI(V,D) 1.8 cm\S\2 LV V1 max PG 5.5 mmHg LV V1 max 117.0 cm/sec PA V2 max 104.4 cm/sec PA max PG 4.4 mmHg TR max odell 223.0 cm/sec
--- NOTE | 2017-03-14 10:50 | Progress Note ---
Internal Med Progress Note Date of Service: Mar 14, 2017. Provider Documentation: SUBJECTIVE: Patient is seen and examined at bedside. States chest pain has resolved. Denies any SOB, dizziness, palpitations. Eager to get discharged. OBJECTIVE: Vital Signs-as noted below Physical Exam: Vitals signs as noted above General Appearance:Moderately built and nourished, no apparent distress Head: normocephalic, Atraumatic Eyes: normal inspection, EOMI, PERRLA Neck: supple, Trachea midline Respiratory/Chest: Normal breath sounds, CTA Cardiovascular: S1, S2, No murmur Abdomen/GI:Soft, Non tender, Bowel sounds present Extremities/Musculoskelatal:normal inspection, no edema Neurologic/Psych:AAOX3, grossly no focal neurological deficits Skin: normal color, warm Lab data as noted below. ASSESSMENT & PLAN: CHEST PAIN H/O NSTEMI S/P PCI 4 months ago Pt presented with chest pain radiating to left arm and neck with associated lightheadedness, nausea, shortness of breath, and diaphoresis No resolution of symptoms with NTG : chest pain free while in ED EKG: no acute changes Troponin X2: negative ECHO:Hypokinesis of mid to apical segments of the anterolateral and inferolateral cameron, improved from prior study Atrial septal aneurysm: incidental finding: hemodynamically insignificant shunt continue ASA, Plavix, Statins Appreciate cardiology input Planned for stress test as outpatient in 1 week No BB secondary to significant wheezing and bradycardia with metoprolol in past HTN controlled continue lisinopril H/O RECENT GI BLEED Hb stable No active bleeding ANXIETY continue home meds Stable DVT PX: SCDs due to recent GI bleeding DISPOSITION: Plan to discharge home today Needs Follow up with PCP and Cardiology as outpatient Patient prefers to make appointments herself Needs stress test as outpatient in 1 week PROCEDURES: ECHO: * Normal LV chamber size and wall thickness. * Normal LV systolic function, EF 55-60%. * Mild to moderate hypokinesis of the mid to apical segments of the anterolateral and inferolateral cameron, improved compared to study of 11/13. * Grade I diastolic dysfunction. * Trace mitral regurgitation. * Trace tricuspid regurgitation. * Atrial septal aneurysm incidentally noted, with small, hemodynamically insignificant shunt. Consider daily aspirin for stroke prophylaxis. Closure not currently indicated. Vital Signs: Date Time Temp Pulse Resp B/P Pulse Ox O2 Delivery O2 Flow Rate FiO2 03/14/17 12:25 36.9 76 18 96 Room Air 03/14/17 11:48 36.9 76 18 112/78 96 Room Air 03/14/17 08:00 Room Air 03/14/17 07:50 36.7 61 18 123/84 97 Room Air 03/14/17 04:00 Room Air 03/14/17 03:43 36.6 64 18 118/73 96 Room Air 03/14/17 00:00 Room Air 03/13/17 23:39 36.6 70 18 103/70 97 Room Air 03/13/17 20:00 Room Air 03/13/17 19:35 36.4 68 16 122/81 98 Room Air 03/13/17 15:11 37.1 67 18 132/83 99 Room Air 03/13/17 15:00 36.3 70 16 128/80 100 Room Air 03/13/17 15:00 Room Air Lab Results: Results Past 24 Hours Test 03/13/17 16:50 03/13/17 23:00 03/13/17 23:10 03/14/17 05:16 Range/Units Creatine Kinase MB 0.6 < 0.5 0.5-3.6 ng/ml Creatine Kinase MB Ratio 0-3.0 Troponin I < 0.015 < 0.015 0-0.045 ng/ml White Blood Count 4.25 4.8-10.8 K/uL Red Blood Count 4.02 4.2-5.4 M/uL Hemoglobin 11.3 12.0-16.0 g/dL Hematocrit 35.1 37-47 % Mean Corpuscular Volume 87.3 80-100 fL Mean Corpuscular Hemoglobin 28.1 25-34 pg Mean Corpuscular Hemoglobin Concent 32.2 32-36 g/dl RDW Standard Deviation 55.5 36.4-46.3 fL RDW Coefficient of Variation 17.2 11.5-14.5 % Platelet Count 220 130-400 K/uL Mean Platelet Volume 9.4 7.4-10.4 fL Sodium Level 143 136-145 mmol/L Potassium Level 4.5 3.5-5.1 mmol/L Chloride Level 110 98-107 mmol/L Carbon Dioxide Level 29 21-32 mmol/L Anion Gap 4.0 3-11 mmol/L Blood Urea Nitrogen 13 7-18 mg/dl Creatinine 0.66 0.60-1.20 mg/dl Est Creatinine Clear Calc Drug Dose 75.2 ml/min Estimated GFR () 109.7 Estimated GFR (Non- 94.7 BUN/Creatinine Ratio 19.3 10-20 Random Glucose 98 70-99 mg/dl Calcium Level 8.7 8.5-10.1 mg/dl
--- NOTE | 2017-03-14 11:22 | DIAGNOSTIC IMAGING REPORT ---
ULTRASOUND OF THE CAROTID ARTERIES CLINICAL HISTORY: Decreased left carotid pulse. COMPARISON STUDY: Carotid artery ultrasound dated 11/08/2016. TECHNIQUE: Real-time, grayscale, and color Doppler sonography of the carotid arteries is performed. Images are reviewed in the transverse and longitudinal planes. FINDINGS: Blood pressures were not assessed due to the presence of IV catheters. The carotid arteries are patent bilaterally and demonstrate antegrade flow. There is no significant atherosclerotic plaque seen. Normal doppler arterial waveforms are seen throughout. Velocity measurements are listed below. Common carotid peak systolic velocity (cm/sec): RIGHT: 77 LEFT: 76 ICA proximal peak systolic velocity (cm/sec): RIGHT: 95 LEFT: 95 ICA mid peak systolic velocity (cm/sec): RIGHT: 77 LEFT: 80 ICA distal peak systolic velocity (cm/sec): RIGHT: 85 LEFT: 87 ICA/CC peak systolic ratio: RIGHT: 1.2 LEFT: 1.2 Antegrade flow was shown in the vertebral arteries. The external carotid arteries are patent. IMPRESSION: 1. There is no sonographic evidence of hemodynamically significant stenosis in the right or left carotid arterial system. 2. Antegrade flow is shown in the vertebral arteries. Electronically signed by: Luis Alberto Paul M.D. 03/14/2017 11:20 AM Dictated Date/Time: 03/14/2017 11:18 AM
[2017-03-14 11:48] VITALS: BP 112/78; PULSE 76; TEMP 36.9; O2SAT 96
--- NOTE | 2017-03-14 12:20 | Discharge Summary ---
Discharge Summary Date of Service Mar 14, 2017. Discharge Summary Admission Date: Mar 13, 2017 at 13:04 Discharge Date: Mar 14, 2017 Discharge Disposition: Home Principal Diagnosis: Chest Pain Procedures: ECHO: * Normal LV chamber size and wall thickness. * Normal LV systolic function, EF 55-60%. * Mild to moderate hypokinesis of the mid to apical segments of the anterolateral and inferolateral cameron, improved compared to study of 11/13. * Grade I diastolic dysfunction. * Trace mitral regurgitation. * Trace tricuspid regurgitation. * Atrial septal aneurysm incidentally noted, with small, hemodynamically insignificant shunt. Consider daily aspirin for stroke prophylaxis. Closure not currently indicated Consultations: Cardiology Pending Studies/Follow-Up: Follow up with in 1 week. (Please make an appointment BETTY as advised ) Follow up with Cardiology in 1 week Get Stress test done as outpatient in 1 week as advised by your barrel endshaker adjuster Seek immediate medical attention if your symptoms reoccur or worsen Medication Reconciliation Continued Medications: Albuterol (Ventolin Hfa) 60 Puffs/5400 Mcg Aers 2 PUFF INH Q4 PRN for Wheezing Alprazolam (Xanax) 0.5 Mg Tab 0.5 MG PO TID PRN for Anxiety, TAB Aspirin (Aspirin Ec) 81 Mg Tab 81 MG PO DAILY Atorvastatin (Lipitor) 40 Mg Tab 40 MG PO DAILY, TAB Calcium Carbonate-Vitamin D W/ (Caltrate 600 Plus) 1 Tab Tab 1 TAB PO BID, TAB Cholecalciferol (Vitamin D 1000 Unit) 1,000 Unit Cap 3000 INTER.UNIT PO DAILY, CAP Clopidogrel (Plavix) 75 Mg Tab 75 MG PO DAILY, TAB Cyanocobalamin (Vitamin B-12) 1,000 Mcg Tab 2500 MCG PO WK, TAB Ferrous Sulfate (Kp Ferrous Sulfate) 325 Mg Tab 1 TAB PO BID for 30 Days, #60 TAB 3 Refills Lisinopril (Prinivil) 5 Mg Tab 2.5 MG PO DAILY, TAB Magnesium Oxide (Mag-Ox) 400 Mg Tab 400 MG PO DAILY, TAB Multivitamins/Minerals (Mvi With Minerals) Tab 1 TAB PO BID, TAB Nitroglycerin (Nitrostat) 0.4 Mg Tab 0.4 MG UT PRN, BTL Omeprazole (Prilosec) 20 Mg Capcr 20 MG PO DAILY, CAP Oxycodone/Acetaminophen 5MG/325MG (Percocet 5MG/325MG) Tab 1 TABLET PO Q6H PRN for Pain, TAB Tramadol (Ultram) 50 Mg Tab 50 MG PO Q6 PRN for Pain for 10 Days, #10 TAB Ubiquinol (Ubiquinol) 100 Mg Cap 200 MG PO DAILY Venlafaxine Hcl (Effexor Xr) 75 Mg Cap 1 CAP PO DAILY for 30 Days, #30 CAP Admission Information HPI (per Admitting provider): 61 year old female who presents to the ER with chest pain. Patient was admitted to [facility] 10/2016 with NSTEMI and underwent ALMITA x 1 to proximal diagonal. She was then admitted to [facility] and [facility] in December and January for GI bleeding. Patient had an extensive work up however no definite source of bleeding was noted. Patient's ASA and Plavix were resumed. Patient reports that today while walking in her yard she developed left sided chest pain that she describes as a sharp pressure. She had radiation of the pain into her her arm and the left side of her neck. Patient rates her pain #7/10 at its worst. She had associated lightheadedness, nausea, shortness of breath, and nausea. She went into her house and took 2 nitro 5 mins apart which had no affect on her symptoms. She then presented to the ER and symptoms have resolved. Patient reports that over the past couple of days she has had a few episodes of left sided chest pain however not as severe and only lasted for a few seconds and would resolve on its own. Patient reports she otherwise has been feeling well recently. She reports she has been tolerating her daily activities without any problems. No orthopnea or lower extremity edema. She denies abdominal pain, vomiting, and diarrhea. No BRBPR or melena. Reports her stools are chronically dark from iron replacement. She denies fever and chills. No urinary symptoms. In the ER, patient's initial trop is negative and EKG does not show any acute ST changes. Vitals are stable. She is currently chest pain free. Physical Exam (per Admitting): General Appearance: no apparent distress Head: normocephalic Eyes: normal inspection ENT: hearing grossly normal Neck: supple, no JVD Respiratory/Chest: lungs clear, normal breath sounds, + pertinent finding ( left chest wall tenderness) Cardiovascular: regular rate, rhythm, no edema, normal peripheral pulses Abdomen/GI: normal bowel sounds, non tender, soft Extremities/Musculoskelatal: normal inspection, no calf tenderness Neurologic/Psych: no motor/sensory deficits, alert, normal mood/affect, oriented x 3 Skin: normal color, warm/dry Hospital Course CHEST PAIN H/O NSTEMI S/P PCI 4 months ago Pt presented with chest pain radiating to left arm and neck with associated lightheadedness, nausea, shortness of breath, and diaphoresis No resolution of symptoms with NTG : chest pain free while in ED EKG: no acute changes Troponin X2: negative ECHO:Hypokinesis of mid to apical segments of the anterolateral and inferolateral cameron, improved from prior study Atrial septal aneurysm: incidental finding: hemodynamically insignificant shunt continue ASA, Plavix, Statins Appreciate cardiology input Planned for stress test as outpatient in 1 week No BB secondary to significant wheezing and bradycardia with metoprolol in past Patient preferred to get stress test as outpatient. Patient is cleared by cardiology for discharge Atrial septal aneurysm: Incidental finding on ECHO: hemodynamically insignificant shunt Continue Aspirin for stroke prophylaxis Closure currently not indicated HTN controlled continue lisinopril H/O RECENT GI BLEED Hb stable No active bleeding ANXIETY continue home meds Stable DVT PX: SCDs due to recent GI bleeding DISPOSITION: Plan to discharge home today Needs Follow up with PCP and Cardiology as outpatient Patient prefers to make appointments herself Needs stress test as outpatient in 1 week PROCEDURES: ECHO: * Normal LV chamber size and wall thickness. * Normal LV systolic function, EF 55-60%. * Mild to moderate hypokinesis of the mid to apical segments of the anterolateral and inferolateral cameron, improved compared to study of 11/13. * Grade I diastolic dysfunction. * Trace mitral regurgitation. * Trace tricuspid regurgitation. * Atrial septal aneurysm incidentally noted, with small, hemodynamically insignificant shunt. Consider daily aspirin for stroke prophylaxis. Closure not currently indicated. Total time spent on discharge = This includes examination of the patient, discharge planning, medication reconciliation, and communication with other providers. Discharge Instructions Discharge Instructions Date of Service Mar 14, 2017. Admission Reason for Admission: Chest Pain Discharge Discharge Diagnosis / Problem: Chest Pain Discharge Goals Goal(s): Decrease discomfort, Improve function Activity Recommendations Activity Limitations: resume your previous activity Exercise/Sports Limitations: as tolerated . Instructions / Follow-Up Instructions / Follow-Up Follow up with Dr.Damaske in 1 week. (Please make an appointment BETTY as advised ) Follow up with Cardiology in 1 week Get Stress test done as outpatient in 1 week as advised by your barrel endshaker adjuster Seek immediate medical attention if your symptoms reoccur or worsen Current Hospital Diet Patient's current hospital diet: AHA Diet (Heart Healthy) Discharge Diet Recommended Diet: AHA Diet (Heart Healthy) Pending Studies Studies pending at discharge: no Medical Emergencies . Who to Call and When: Medical Emergencies: If at any time you feel your situation is an emergency, please call 911 immediately. . Non-Emergent Contact Non-Emergency issues call your: Primary Care Provider, Aircraft Systems Technician Call Non-Emergent contact if: you have a fever, your pain is not controlled, your pain is worsening, your pain is unusual for you, you have any medication questions . . "Provider Documentation" section prepared by Aldo Stevens. VTE Core Measure Inpt VTE Proph given/why not?: SCD's
[2017-03-14 12:25] VITALS: BP 112/78; PULSE 76; TEMP 36.9; O2SAT 96
--- NOTE | 2017-03-14 13:46 | CARDIOLOGY CONSULTATION ---
DATE OF CONSULTATION: 03/14/2017 CONSULTATION REQUESTED BY: Dr. Stevens. REASON FOR CONSULTATION: Chest pain. HISTORY OF PRESENT ILLNESS: Mrs. Barcenas is a very pleasant 61-year-old woman who normally follows with Dr. Silverio of our cardiology practice. She presented to [facility] on 03/13/2017 with a complaint of chest pain. The patient states that she was at home walking to her garden when she suddenly developed left-sided chest pain. She described it as a pressure/dull achy sensation. They radiated up to her left shoulder and down her left arm. It was associated with some slight shortness of breath, but otherwise denied any associated nausea, diaphoresis, palpitations, lightheadedness, dizziness, or syncope. She states that she was not feeling overly anxious at that time and she does not remember lifting anything or doing anything strenuous with her upper body prior to the event. She states that the discomfort is not similar to the discomfort she had prior to her PCI. At that time, she became concerned and came into the Emergency Department. She was given nitroglycerin without any relief; however, the pain slowly dissipated on its own. She has had no further discomfort overnight and otherwise feels well. She states that she has been compliant with all of her medications at home. PAST SURGICAL HISTORY: 1. Cardiac catheterization with drug-eluting stent placement to the diagonal in October 2016. 2. Gastric bypass surgery. 3. Cholecystectomy. 4. Hernia repair. MEDICAL ILLNESSES: 1. Coronary artery disease. 2. Anxiety. 3. Asthma. 4. GERD. 5. Hypertension. 6. Dyslipidemia. 7. Obstructive sleep apnea. 8. Post-non STEMI pericarditis. FAMILY HISTORY: Remarkable for mother who developed coronary artery disease in her 50s. SOCIAL HISTORY: The patient denies any alcohol, tobacco or recreational drug use. She is . She lives at home with her . ALLERGIES: 1. MORPHINE. 2. CODEINE. 3. TERAZOSIN. MEDICATIONS AN OUTPATIENT: 1. Aspirin 81 mg daily. 2. Atorvastatin 80 mg daily. 3. Plavix 75 mg daily. 4. Lisinopril 5 mg daily. 5. Prevacid daily. 6. Effexor daily. 7. Xanax as needed. 8. Sublingual nitroglycerin as needed. 9. Albuterol as needed. REVIEW OF SYSTEMS: As per HPI, all other review of systems reviewed and negative at this time. PHYSICAL EXAMINATION: VITALS: Temperature 36.7, pulse 61, respiratory rate 12, blood pressure 123/84, saturating 97% on room air. GENERAL: Awake, alert, oriented x3 in no acute distress. HEENT: Normocephalic, atraumatic. Pupils equal, round, and reactive to light and accommodation. Extraocular muscles intact. Anicteric sclerae. Moist mucous membranes. NECK: No JVD, no bruit. CARDIOVASCULAR: Regular. Positive S4. Normal S1 and S2. No S3. No murmurs or rubs. PULMONARY: Clear to auscultation bilaterally. No rales, rhonchi, or wheezing. ABDOMEN: Bowel sounds x4, soft. No rebound, guarding, tenderness. No organomegaly. EXTREMITIES: No clubbing, cyanosis or edema. +2 pedal pulses bilaterally. SKIN: Warm and dry. TEST RESULTS: Troponin negative x3. CPK of 55. A 12-lead EKG performed in the Emergency Department independently reviewed at this time shows normal sinus rhythm at 63 beats per minute, normal axis, normal intervals, normal study. A 2-D echocardiogram was read as normal LV chamber size and wall thickness, normal LV systolic function, EF 55%-60%, mild to moderate hypokinesis of the mid to apical segments of the anterior lateral and inferior lateral cameron improved compared to the study of October 2016, grade 1 diastolic dysfunction, trace mitral regurgitation, trace tricuspid regurgitation and atrial septal aneurysm incidentally noted. IMPRESSION: 1. Chest pain. 2. History of coronary artery disease. RECOMMENDATIONS: It was my pleasure to see Mrs. Barcenas in consultation today. Given the fact that she has no objective findings of ischemia along with the fact that her chest pain has resolved and that there was no benefit to nitroglycerin, at this point, I believe the most prudent course of action would be to refer the patient for outpatient stress test. I gave the patient the option of either remaining in the hospital overnight and have the testing completed in the a.m. or can get it performed as an outpatient through [facility] office and she would prefer to be discharged and perform it as an outpatient. So no medication changes will be made at this time My office will contact her to schedule stress testing along with followup with Dr. Silverio and it is okay to discharge the patient home from a cardiac standpoint.
== END 2017-03-14 12:47 | disposition home or self-care (01) ==
LOC: ENRESERVTM → ENRESERVDT → C.EDB 10:39 → C.2T 13:04
PROVIDERS: ADMIT Hospitalist; ATTEND Internal Medicine
DX: R07.9 Chest pain, unspecified (principal); J45.909 Unspecified asthma, uncomplicated; F41.9 Anxiety disorder, unspecified; F32.9 Major depressive disorder, single episode, unspecified; K21.9 Gastro-esophageal reflux disease without esophagitis; E78.5 Hyperlipidemia, unspecified; I10 Essential (primary) hypertension; E66.9 Obesity, unspecified; G47.30 Sleep apnea, unspecified; Z98.84 Bariatric surgery status; Z95.5 Presence of coronary angioplasty implant and graft; Z79.82 Long term (current) use of aspirin; I25.2 Old myocardial infarction; Z82.49 Family history of ischemic heart disease and other diseases of the circulatory system; Z87.891 Personal history of nicotine dependence; Z79.02 Long term (current) use of antithrombotics/antiplatelets; Z79.899 Other long term (current) drug therapy

== ENCOUNTER 2017-07-14 09:46 | Emergency (ER) | payer OTHER ==
[~2017-07-14] VITALS: Ht 154.9 cm; Wt 65.4 kg
[~2017-07-14 09:46] MED LIST changes: +FERR1TAB13 PO; +OXYC-57 PO
[2017-07-14 09:53] VITALS: TEMP 36.8; Ht 154.9 cm; Wt 65.4 kg
[2017-07-14] MEDS ORDERED: GI COCKTAIL PO STA (10:22)
[2017-07-14] MEDS ORDERED: FAMOTIDINE 20MG/102 ML D5W IV STA (10:22)
--- NOTE | 2017-07-14 10:31 | EMERGENCY ROOM VISIT NOTE ---
History Report prepared by Barryibdrew: Brunilda Pennington Under the Supervision of: Dr. Marlo Khalil M.D. First contact with patient: 10:12 Chief Complaint: SHORTNESS OF BREATH Stated Complaint: SOB,SLIGHT CHEST DISCOMFORT History of Present Illness The patient is a 61 year old female who presents to the Emergency Room with complaints of worsening shortness of breath for the past 5 days. She reports her shortness of breath "comes and goes" and is usually accompanied with diaphoresis. The shortness of breath most often occurs in the mornings, after the patient has eaten, and has been recently accompanied by increased belching. The patient admits to a history of asthma and states she has been using her inhaler with minimal relief. Activity or exertion does not exacerbate her symptoms. The patient notes she has also experienced intermittent chest pain with her shortness of breath. Earlier this morning, she called her PCP's office , Dr. Perez with [facility], and was referred to the ED for further evaluation. The patient does take daily Aspirin and Plavix. She had a cardiac stent placed in 2016 and reports she has undergone 2 stress tests within the past year, reporting "they both looked really good". She denies any recent fevers, cough or cold symptoms, nausea, vomiting diarrhea or urinary symptoms. She also denies any pain or swelling in her legs. She states she has been eating and drinking normally. 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 A total of ten systems were reviewed and were otherwise negative. Past Medical & Surgical Medical Problems: (1) Anxiety (2) Asthma (3) CAD (coronary artery disease) (4) Depression (5) GERD (gastroesophageal reflux disease) (6) GI bleed (7) Hyperlipidemia Nec/Nos (8) Hypertension Nos (9) Migraine (10) Sleep apnea Surgical Problems: (1) Gastric bypass status for obesity (2) History of heart artery stent (3) S/P cholecystectomy (4) S/P hernia repair Family History ALS (amyotrophic lateral sclerosis) SISTER Coronary artery disease MOTHER (CABG / age 53) Hypertension MOTHER Social History Smoking Status: Former Smoker Alcohol Use: none Drug Use: none Marital Status: Housing Status: lives with family Occupation Status: retired Current/Historical Medications Scheduled Aspirin (Aspirin Ec), 81 MG PO DAILY Calcium Carbonate-Vitamin D W/ (Caltrate 600 Plus), 1 TAB PO BID Cholecalciferol (Vitamin D 1000 Unit), 3,000 INTER.UNIT PO DAILY Clopidogrel (Plavix), 75 MG PO DAILY Cyanocobalamin (Vitamin B-12), 2,500 MCG PO WK Ferrous Sulfate (Kp Ferrous Sulfate), 1 TAB PO DAILY Lisinopril (Prinivil), 2.5 MG PO DAILY Magnesium Oxide (Mag-Ox), 400 MG PO DAILY Multivitamins/Minerals (Mvi With Minerals), 1 TAB PO BID Nitroglycerin (Nitrostat), 0.4 MG UT PRN Omeprazole (Prilosec), 20 MG PO DAILY Rosuvastatin Calcium (Crestor), 2.5 MG PO MWF Ubiquinol (Ubiquinol), 200 MG PO DAILY Venlafaxine Hcl (Effexor Xr), 75 MG PO DAILY Scheduled PRN Albuterol (Ventolin Hfa), 2 PUFF INH Q4 PRN for Wheezing Alprazolam (Xanax), 0.5 MG PO TID PRN for Anxiety Oxycodone/Acetaminophen 5MG/325MG (Percocet 5MG/325MG), 1 TABLET PO Q6H PRN for Pain Allergies Coded Allergies: Hydromorphone (Verified Allergy, Severe, GI SYMPTOMS, 07/14/17) Nortriptyline (Verified Allergy, Severe, MEMORY PROBLEMS, CONFUSION, ) Topiramate (Verified Allergy, Severe, MEMORY PROBLEMS, CONFUSION, 07/14/17) Morphine (Verified Adverse Reaction, Intermediate, nausea, 07/14/17) Codeine (Verified Adverse Reaction, Mild, NAUSEA, 07/14/17) Terazosin (Verified Adverse Reaction, Mild, NAUSEA, 07/14/17) Physical Exam Vital Signs Date Time Temp Pulse Resp B/P (MAP) Pulse Ox O2 Delivery O2 Flow Rate FiO2 07/14/17 14:38 70 20 126/87 98 07/14/17 13:51 65 07/14/17 13:04 64 18 126/87 98 Room Air 07/14/17 11:31 57 18 122/77 100 Room Air 07/14/17 11:06 59 07/14/17 10:53 99 Room Air 07/14/17 09:56 100 Room Air 07/14/17 09:53 36.8 10 16 118/77 100 Room Air Physical Exam GENERAL: Awake, alert, well-appearing, in no distress HENT: Normocephalic, atraumatic. Oropharynx unremarkable. EYES: Normal conjunctiva. Sclera non-icteric. NECK: Supple. No nuchal rigidity. FROM. No JVD. RESPIRATORY: Clear to auscultation. CARDIAC: Regular rate, normal rhythm. Extremities warm and well perfused. Pulses equal. ABDOMEN: Soft, non-distended. Mild epigastric tenderness to palpation. No peritoneal signs. No rebound or guarding. No masses. RECTAL: Deferred. MUSCULOSKELETAL: Mild discomfort in the anterior chest wall with palpation. The back is symmetrical on inspection without obvious abnormality. There is no CVA tenderness to palpation. No joint edema. LOWER EXTREMITIES: Pulses are equal in all extremities. Calves are equal size bilaterally and non-tender. No edema. No discoloration. NEURO: Normal sensorium. No sensory or motor deficits noted. SKIN: No rash or jaundice noted. Medical Decision & Procedures ER Provider Diagnostic Interpretation: Radiology results as stated below per my review and radiologist interpretation: CHEST ONE VIEW PORTABLE CLINICAL HISTORY: 61 years-old Female presenting with CHEST PAIN. TECHNIQUE: Portable upright AP view of the chest was obtained. COMPARISON: 03/13/2017. FINDINGS: Cardiomediastinal silhouette normal. Old calcified granulomas may be present bilaterally. Lungs and pleural spaces clear. Osseous structures normal. Upper abdomen normal. IMPRESSION: 1. No acute cardiopulmonary disease. Electronically signed by: Danilo Ponce M.D. 07/14/2017 10:47 AM Laboratory Results 07/14/17 10:53 Red Blood Count 4.33, Mean Corpuscular Volume 91.5, Mean Corpuscular Hemoglobin 31.2, Mean Corpuscular Hemoglobin Concent 34.1, Mean Platelet Volume 10.4, Neutrophils (%) (Auto) 58.9, Lymphocytes (%) (Auto) 32.2, Monocytes (%) (Auto) 7.0, Eosinophils (%) (Auto) 0.8, Basophils (%) (Auto) 0.8, Neutrophils # (Auto) 2.10, Lymphocytes # (Auto) 1.15, Monocytes # (Auto) 0.25, Eosinophils # (Auto) 0.03, Basophils # (Auto) 0.03 07/14/17 10:53 Test 07/14/17 10:53 07/14/17 12:55 White Blood Count 3.57 K/uL (4.8-10.8) Red Blood Count 4.33 M/uL (4.2-5.4) Hemoglobin 13.5 g/dL (12.0-16.0) Hematocrit 39.6 % (37-47) Mean Corpuscular Volume 91.5 fL (80-100) Mean Corpuscular Hemoglobin 31.2 pg (25-34) Mean Corpuscular Hemoglobin Concent 34.1 g/dl (32-36) Platelet Count 183 K/uL (130-400) Mean Platelet Volume 10.4 fL (7.4-10.4) Neutrophils (%) (Auto) 58.9 % Lymphocytes (%) (Auto) 32.2 % Monocytes (%) (Auto) 7.0 % Eosinophils (%) (Auto) 0.8 % Basophils (%) (Auto) 0.8 % Neutrophils # (Auto) 2.10 K/uL (1.4-6.5) Lymphocytes # (Auto) 1.15 K/uL (1.2-3.4) Monocytes # (Auto) 0.25 K/uL (0.11-0.59) Eosinophils # (Auto) 0.03 K/uL (0-0.5) Basophils # (Auto) 0.03 K/uL (0-0.2) RDW Standard Deviation 47.3 fL (36.4-46.3) RDW Coefficient of Variation 14.1 % (11.5-14.5) Immature Granulocyte % (Auto) 0.3 % Immature Granulocyte # (Auto) 0.01 K/uL (0.00-0.02) Anion Gap 6.0 mmol/L (3-11) Est Creatinine Clear Calc Drug Dose 71.1 ml/min Estimated GFR () 105.8 Estimated GFR (Non- 91.3 BUN/Creatinine Ratio 22.1 (10-20) Calcium Level 8.7 mg/dl (8.5-10.1) Total Bilirubin 0.5 mg/dl (0.2-1) Direct Bilirubin 0.1 mg/dl (0-0.2) Aspartate Amino Transf (AST/SGOT) 31 U/L (15-37) Alanine Aminotransferase (ALT/SGPT) 39 U/L (12-78) Alkaline Phosphatase 108 U/L (45-117) Total Protein 7.1 gm/dl (6.4-8.2) Albumin 3.9 gm/dl (3.4-5.0) Lipase 102 U/L (73-393) Troponin I < 0.015 ng/ml (0-0.045) Laboratory results reviewed by me Medications Administered Medications (Trade) Dose Ordered Sig/Dulce Maria Route Start Time Stop Time Status Last Admin Dose Admin Famotidine (Pepcid 20mg/100 ml) 20 mg ONE STAT IV 07/14/17 10:22 07/14/17 10:26 DC 07/14/17 10:52 20 MG Al Hydroxide/Mg Hydroxide (Maalox Susp) 30 ml STK-MED ONCE .ROUTE 07/14/17 10:41 07/14/17 10:42 DC 07/14/17 10:52 30 ML Lidocaine HCl (Viscous Lidocaine 2% Soln) 20 ml STK-MED ONCE .ROUTE 07/14/17 10:41 07/14/17 10:42 DC 07/14/17 10:52 20 ML ECG Indication: SOB/dyspnea Rate (beats per minute): 57 Rhythm: sinus bradycardia Findings: no acute ischemic change, other (normal axis) Change: no significant change (unchanged from 03/14/2017) Change: Repeat EKG on 07/14/2017: Sinus Bradycardia, rate of 57, normal axis, no acute ischemia, unchanged from 1st EKG. ED Course 020: The patient was evaluated in room A11B. A complete history and physical exam was performed. 1022: Famotidine 20 mg IV. 1041: Lidocaine HCl 30 ml PO, Maalox Susp 30 ml PO. 1408: I reevaluated the patient. She is feeling much better. I discussed her results and discharge instructions and she verbalized complete understanding and agreement. Medical Decision I reviewed the patient's past medical history, medications, and the nursing notes as described above. The patient's presentation and history were concerning for ACS, pneumonia, bronchitis, asthma, GERD, gastritis, PUD, PE and CHF. Patient is a 61-year-old woman with a past medical history of CAD status post RI in 2016 with stent placement as well as a history of a remote gastric bypass presents to emergency department with chest pain per history of present illness. On arrival the patient is in no acute distress. Afebrile with stable vital signs. Lungs are clear to auscultation. Pulses equal in all extremities. Has mild discomfort in the epigastrium as well as mild discomfort anteriorly on the chest wall which she says is normal. This time the patient says she just feels a mild sensation of numbness in her chest but much improved from this morning. Will evaluate for cardiac causes as well as GI in setting of the patients gastric bypass. Considering the patient had recent outpatient stress tests that were unremarkable symptoms were most likely related to reflux versus gastritis. However, in setting of patient's hx, Heart score would be 3 but with CAD hx so will check delta troponin. We will attempt GI cocktail with Pepcid. Repeat EKG and second troponin 6 hours from onset of symptoms unchanged. Thus, unlikely ACS particularly in setting of recent negative stress test per patient. Patient's symptoms resolved with GI cocktail and Pepcid. The symptoms most likely secondary to reflux in the setting of the patient's gastric bypass. Findings and plan for follow-up d/w patient. Patient agreeable and d/c'd per discharge instructions. Medication Reconcilliation Current Medication List: was personally reviewed by me Blood Pressure Screening Patient's blood pressure: Normal blood pressure Blood pressure disposition: Did not require urgent referral Impression Primary Impression: Substernal chest pain Additional Impression: GERD (gastroesophageal reflux disease) Scribe Attestation The scribe's documentation has been prepared under my direction and personally reviewed by me in its entirety. I confirm that the note above accurately reflects all work, treatment, procedures, and medical decision making performed by me. Departure Information Dispostion Home / Self-Care Referrals No Doctor, Assigned (PCP) Patient Instructions Chest Pain - [facility], ED GERD, My [facility] Additional Instructions Please follow up with your primary care physician in the next 1-3 days for reevaluation. Otherwise, your exam, EKG, chest x-ray, and lab results did not show signs of an emergent condition this time. Continue your medications as prescribed. Return to the emergency department for worsening symptoms as described in the accompanying instructions. Problem Qualifiers
[2017-07-14] MEDS ORDERED: ALUMINUM/MAGNESIUM SUSP 30 ML UDC ONE (10:41)
[2017-07-14] MEDS ORDERED: LIDOCAINE HCL 2% VISC SOLN 20 ML UDC ONE (10:41)
--- NOTE | 2017-07-14 10:48 | DIAGNOSTIC IMAGING REPORT ---
CHEST ONE VIEW PORTABLE CLINICAL HISTORY: 61 years-old Female presenting with CHEST PAIN. TECHNIQUE: Portable upright AP view of the chest was obtained. COMPARISON: 03/13/2017. FINDINGS: Cardiomediastinal silhouette normal. Old calcified granulomas may be present bilaterally. Lungs and pleural spaces clear. Osseous structures normal. Upper abdomen normal. IMPRESSION: 1. No acute cardiopulmonary disease. Electronically signed by: Danilo Ponce M.D. 07/14/2017 10:47 AM Dictated Date/Time: 07/14/2017 10:46 AM
[2017-07-14 10:53] VITALS: O2SAT 99
[2017-07-14] MEDS ORDERED: ROSU5TAB PO (10:55)
[2017-07-14 11:13] LABS: BASO % 0.8 %; BASO ABS # 0.03 K/uL (0-0.2); COMPLETE YES; EOS % 0.8 %; HEMATOCRIT 39.6 % (37-47); IG% 0.3 %; LYMPH % 32.2 %; LYMPH ABS # 1.15 K/uL (1.2-3.4); MEAN CELL VOLUME 91.5 fL (80-100); MEAN CORPUSCULAR HEMOGLOBIN 31.2 pg (25-34); MEAN CORPUSCULAR HGB CONC 34.1 g/dl (32-36); MEAN PLATELET VOLUME 10.4 fL (7.4-10.4); NEUT % 58.9 %; PLATELET COUNT 183 K/uL (130-400); RED BLOOD COUNT 4.33 M/uL (4.2-5.4); WHITE BLOOD COUNT 3.57 K/uL (4.8-10.8)
[2017-07-14 11:34] LABS: ALT/SGPT 39 U/L (12-78); AST/SGOT 31 U/L (15-37); BLOOD UREA NITROGEN 16 mg/dl (7-18); BUN/CREATININE RATIO 22.1 (10-20); CALCIUM 8.7 mg/dl (8.5-10.1); CARBON DIOXIDE 26 mmol/L (21-32); CHLORIDE 109 mmol/L (98-107); CREATININE 0.71 mg/dl (0.60-1.20); GLUCOSE 94 mg/dl (70-99); SODIUM 141 mmol/L (136-145)
[2017-07-14 11:39] LABS: ALKALINE PHOSPHATASE 108 U/L (45-117)
[2017-07-14 14:38] VITALS: BP 126/87; PULSE 70; O2SAT 98
== END 2017-07-14 14:40 | disposition home or self-care (01) ==
LOC: C.EDB 09:46 → C.EDA 14:40
DX: R07.2 Precordial pain (principal); K21.9 Gastro-esophageal reflux disease without esophagitis; R00.1 Bradycardia, unspecified; I10 Essential (primary) hypertension; I25.10 Atherosclerotic heart disease of native coronary artery without angina pectoris; E78.5 Hyperlipidemia, unspecified; I25.2 Old myocardial infarction; F32.9 Major depressive disorder, single episode, unspecified; F41.9 Anxiety disorder, unspecified; J45.909 Unspecified asthma, uncomplicated; G47.39 Other sleep apnea; Z87.19 Personal history of other diseases of the digestive system; Z98.61 Coronary angioplasty status; Z98.84 Bariatric surgery status; Z90.49 Acquired absence of other specified parts of digestive tract; Z98.890 Other specified postprocedural states; Z79.82 Long term (current) use of aspirin; Z79.899 Other long term (current) drug therapy; Z88.5 Allergy status to narcotic agent; Z88.8 Allergy status to other drugs, medicaments and biological substances; Z82.49 Family history of ischemic heart disease and other diseases of the circulatory system

== ENCOUNTER 2017-12-05 14:01 | Emergency (ER) | payer OTHER ==
[~2017-12-05] VITALS: Ht 154.9 cm; Wt 67.4 kg
[~2017-12-05 14:01] MED LIST changes: -ATOR-24 PO; +ROSU5TAB PO; -TRAM-10 PO
[2017-12-05 14:05] VITALS: TEMP 36.3; Ht 154.9 cm; Wt 67.4 kg
[2017-12-05] MEDS ORDERED: ALBUT/IPRATROP 3MG/0.5MG NEB 3 ML VIAL INH STA (14:12)
[2017-12-05] MEDS ORDERED: SODIUM CHLORIDE 0.9% 1000ML 1,000 ML IV STA (14:17)
--- NOTE | 2017-12-05 14:30 | EMERGENCY ROOM VISIT NOTE ---
History Report prepared by Juan Alberto: Hussain Miranda Under the Supervision of: Dr. Marlo Khalil M.D. First contact with patient: 14:09 Chief Complaint: NAUSEA Stated Complaint: NAUSEATED,VERY TIRED History of Present Illness The patient is a 61 year old female who presents to the Emergency Room with complaints of constant fatigue that began a week ago. She rates her discomfort as a 7/10 in severity. The patient states that she has been weak and fatigued for the last week. The patient reports that she has also been experiencing a cough and shortness of breath for the last couple of days. She reports that her shortness of breath feels as if she cannot take a deep breath. The patient states that throughout the week, her cough became more frequent. She reports that for the last two days, she has been constantly nauseous and "gassy". The patient states that she is also experiencing some mild chest discomfort, dizziness, and a headache. The patient denies diarrhea, vomiting, and sick contact. She states that she is anxious and worried that she is experiencing a myocardial infarction because her symptoms were similar to her current similars. The patient states that she takes Aspirin but denies using any blood thinners. She denies having a flu shot. The patient denies a history of COPD, but reports a history to asthma. She denies a social history of smoking. Source of History: patient Onset: a week ago Position: other (global) Symptom Intensity: 7/10 Quality: other (fatigue) Timing: constant Associated Symptoms: + headache, + cough, + chest pain, + SOB, + nausea, + weakness, No vomiting, No abdominal pain Review of Systems See HPI for pertinent positives and negatives. A total of ten systems were reviewed and were otherwise negative. Past Medical & Surgical Medical Problems: (1) Anxiety (2) Asthma (3) CAD (coronary artery disease) (4) Depression (5) GERD (gastroesophageal reflux disease) (6) GI bleed (7) Hyperlipidemia Nec/Nos (8) Hypertension Nos (9) Migraine (10) Sleep apnea Surgical Problems: (1) Gastric bypass status for obesity (2) History of heart artery stent (3) S/P cholecystectomy (4) S/P hernia repair Family History ALS (amyotrophic lateral sclerosis) SISTER Coronary artery disease MOTHER (CABG / age 53) Hypertension MOTHER Social History Smoking Status: Former Smoker Alcohol Use: none Drug Use: none Marital Status: Housing Status: lives with family Occupation Status: retired Current/Historical Medications Scheduled Aspirin (Aspirin Ec), 81 MG PO DAILY Calcium Carbonate-Vitamin D W/ (Caltrate 600 Plus), 1 TAB PO DAILY Cyanocobalamin (Vitamin B-12), 2,500 MCG PO WK Lisinopril (Zestril), 2.5 MG PO DAILY Magnesium Oxide (Mag-Ox), 400 MG PO DAILY Multivitamins/Minerals (Mvi With Minerals), 1 TAB PO BID Nitroglycerin (Nitrostat), 0.4 MG UT PRN Ondasetron Odt (Zofran Odt), 4 MG SL Q6H Pantoprazole (Protonix), 20 MG PO DAILY Venlafaxine Hcl (Effexor Xr), 75 MG PO DAILY Venlafaxine Hcl (Venlafaxine Extended Rel), 37.5 MG PO DAILY Scheduled PRN Alprazolam (Xanax), 0.5 MG PO TID PRN for Anxiety Allergies Coded Allergies: Hydromorphone (Verified Allergy, Severe, GI SYMPTOMS, 12/05/17) Nortriptyline (Verified Allergy, Severe, MEMORY PROBLEMS, CONFUSION, ) Topiramate (Verified Allergy, Severe, MEMORY PROBLEMS, CONFUSION, 12/05/17) Morphine (Verified Adverse Reaction, Intermediate, nausea, 12/05/17) Codeine (Verified Adverse Reaction, Mild, NAUSEA, 12/05/17) Terazosin (Verified Adverse Reaction, Mild, NAUSEA, 12/05/17) Physical Exam Vital Signs Date Time Temp Pulse Resp B/P (MAP) Pulse Ox O2 Delivery O2 Flow Rate FiO2 12/05/17 16:46 76 20 132/68 99 Room Air 12/05/17 16:02 72 20 127/64 100 Room Air 12/05/17 15:02 66 12/05/17 15:00 68 14 126/71 100 Room Air 12/05/17 14:43 64 12 139/83 99 Room Air 12/05/17 14:37 100 Room Air 12/05/17 14:05 36.3 68 16 136/85 100 Room Air Physical Exam GENERAL: Awake, alert, fatigued appearing, in no distress HENT: Normocephalic, atraumatic. Dry mucous membranes. EYES: Normal conjunctiva. Sclera non-icteric. NECK: Supple. No nuchal rigidity. FROM. No JVD. RESPIRATORY: Scant wheeze at left base otherwise clear. CARDIAC: Regular rate, normal rhythm. Extremities warm and well perfused. Pulses equal. ABDOMEN: Soft, non-distended. No tenderness to palpation. No rebound or guarding. No masses. RECTAL: Deferred. MUSCULOSKELETAL: Chest examination reveals no tenderness. The back is symmetrical on inspection without obvious abnormality. There is no CVA tenderness to palpation. No joint edema. LOWER EXTREMITIES: Calves are equal size bilaterally and non-tender. No edema. No discoloration. NEURO: Normal sensorium. No sensory or motor deficits noted. SKIN: No rash or jaundice noted. Medical Decision & Procedures ER Provider Diagnostic Interpretation: X-ray: Per my interpretation, radiologist review. CHEST ONE VIEW PORTABLE CLINICAL HISTORY: Chest pain. Fatigue. COMPARISON STUDY: Chest radiograph July 14, 2017. FINDINGS: Lucency under the right hemidiaphragm likely reflects gas within bowel given findings on prior imaging studies. No consolidation is identified. There is no evidence of pulmonary edema. Cardiomediastinal silhouette is normal. There is no pneumothorax or pleural effusion. IMPRESSION: No acute cardiopulmonary findings. Electronically signed by: Garcia Koenig M.D. 12/05/2017 3:03 PM Dictated Date/Time: 12/05/2017 3:02 PM Laboratory Results 12/05/17 14:52 Red Blood Count 4.56, Mean Corpuscular Volume 93.4, Mean Corpuscular Hemoglobin 32.5, Mean Corpuscular Hemoglobin Concent 34.7, Mean Platelet Volume 10.0, Neutrophils (%) (Auto) 70.6, Lymphocytes (%) (Auto) 23.2, Monocytes (%) (Auto) 5.2, Eosinophils (%) (Auto) 0.6, Basophils (%) (Auto) 0.2, Neutrophils # (Auto) 3.80, Lymphocytes # (Auto) 1.25, Monocytes # (Auto) 0.28, Eosinophils # (Auto) 0.03, Basophils # (Auto) 0.01 12/05/17 14:52 Test 12/05/17 14:45 12/05/17 14:52 12/05/17 15:52 Influenza Type A (RT-PCR) Neg for Influ A (NEG) Influenza Type A Antigen Neg for Influ A (NEG) Influenza Type B Antigen Neg for Influ B (NEG) Influenza Type B (RT-PCR) Neg for Influ B (NEG) White Blood Count 5.38 K/uL (4.8-10.8) Red Blood Count 4.56 M/uL (4.2-5.4) Hemoglobin 14.8 g/dL (12.0-16.0) Hematocrit 42.6 % (37-47) Mean Corpuscular Volume 93.4 fL (80-100) Mean Corpuscular Hemoglobin 32.5 pg (25-34) Mean Corpuscular Hemoglobin Concent 34.7 g/dl (32-36) Platelet Count 213 K/uL (130-400) Mean Platelet Volume 10.0 fL (7.4-10.4) Neutrophils (%) (Auto) 70.6 % Lymphocytes (%) (Auto) 23.2 % Monocytes (%) (Auto) 5.2 % Eosinophils (%) (Auto) 0.6 % Basophils (%) (Auto) 0.2 % Neutrophils # (Auto) 3.80 K/uL (1.4-6.5) Lymphocytes # (Auto) 1.25 K/uL (1.2-3.4) Monocytes # (Auto) 0.28 K/uL (0.11-0.59) Eosinophils # (Auto) 0.03 K/uL (0-0.5) Basophils # (Auto) 0.01 K/uL (0-0.2) RDW Standard Deviation 44.5 fL (36.4-46.3) RDW Coefficient of Variation 13.0 % (11.5-14.5) Immature Granulocyte % (Auto) 0.2 % Immature Granulocyte # (Auto) 0.01 K/uL (0.00-0.02) Anion Gap 7.0 mmol/L (3-11) Est Creatinine Clear Calc Drug Dose 63.2 ml/min Estimated GFR () 90.2 Estimated GFR (Non- 77.8 BUN/Creatinine Ratio 14.8 (10-20) Calcium Level 9.4 mg/dl (8.5-10.1) Total Bilirubin 0.3 mg/dl (0.2-1) Direct Bilirubin < 0.1 mg/dl (0-0.2) Aspartate Amino Transf (AST/SGOT) 22 U/L (15-37) Alanine Aminotransferase (ALT/SGPT) 33 U/L (12-78) Alkaline Phosphatase 118 U/L (45-117) Troponin I < 0.015 ng/ml (0-0.045) Total Protein 7.8 gm/dl (6.4-8.2) Albumin 4.3 gm/dl (3.4-5.0) Lipase 93 U/L (73-393) Urine Color YELLOW Urine Appearance CLEAR (CLEAR) Urine pH 5.5 (4.5-7.5) Urine Specific [place] 1.011 (1.000-1.030) Urine Protein NEG (NEG) Urine Glucose (UA) NEG (NEG) Urine Ketones NEG (NEG) Urine Occult Blood NEG (NEG) Urine Nitrite NEG (NEG) Urine Bilirubin NEG (NEG) Urine Urobilinogen NEG (NEG) Urine Leukocyte Esterase NEG (NEG) Laboratory results reviewed by me Medications Administered Medications (Trade) Dose Ordered Sig/Dulce Maria Route Start Time Stop Time Status Last Admin Dose Admin Albuterol/ Ipratropium (Duoneb) 3 ml NOW STAT INH 12/05/17 14:12 12/05/17 14:17 DC 12/05/17 14:44 3 ML Sodium Chloride 1,000 ml @ 999 mls/hr Q1H1M STAT IV 12/05/17 14:17 12/05/17 15:17 DC 12/05/17 14:17 999 MLS/HR Ibuprofen (Motrin Tab) 800 mg STK-MED ONCE .ROUTE 12/05/17 15:59 12/05/17 16:00 DC 12/05/17 16:02 800 MG Dexamethasone Sodium Phosphate (Dexamethasone Inj Pf) 10 mg NOW ONCE IV 12/05/17 16:45 12/05/17 16:46 DC 12/05/17 16:57 10 MG ECG Indication: chest pain Rate (beats per minute): 63 Rhythm: normal sinus Findings: no acute ischemic change, other (Normal axis) ED Course 1410: The patient was evaluated in room C07. A complete history and physical exam was performed. 1637: I reevaluated the patient. Discussed results and discharge instructions: She verbalized understanding and agreement. The patient is ready for discharge. Medical Decision I reviewed the patient's past medical history, medications, and the nursing notes as described above. The patient's presentation and history were concerning for pneumonia, bronchitis , ACS, CHF, PE, influenza, viral syndrome, dehydration, and electrolyte abnormalities. The patient is a 61-year-old woman with a past medical history of asthma, CAD status post MT who presents emergency Department with reported generalized fatigue, nausea, cough congestion, shortness of breath, lightheadedness for the past several days per hpi. On arrival the patient is fatigued appearing but in no acute distress, afebrile with stable vital signs. Scant wheeze to the left base but otherwise lungs are clear. Labs unremarkable cleaning WBC and troponin within normal limits. EKG unremarkable. Given negative workup in the setting of constant symptoms unlikely to be ACS. Chest x-ray negative. UA negative and flu negative. Findings and plan for follow-up reviewed with patient. Patient agreeable and d/c'd per discharge instructions. Medication Reconcilliation Current Medication List: was personally reviewed by me Blood Pressure Screening Patient's blood pressure: Normal blood pressure Impression Primary Impression: Bronchitis Scribe Attestation The scribe's documentation has been prepared under my direction and personally reviewed by me in its entirety. I confirm that the note above accurately reflects all work, treatment, procedures, and medical decision making performed by me. Departure Information Dispostion Home / Self-Care Prescriptions Ondasetron Odt (ZOFRAN ODT) 4 Mg Tab 4 MG SL Q6H for Nausea, #6 TAB Prov: Marlo Khalil M.D. 12/05/17 Referrals Danilo Perez M.D. (PCP) Patient Instructions ED Bronchitis Asthmatic, ED Nausea Vomiting, My [facility] [address] Additional Instructions Please follow up with your primary care physician in the next 1-3 days for re- evaluation. You likely have a viral bronchitis. Otherwise, your exam, EKG, chest xray, and lab results did not show signs of an emergent condition at this time. Zofran as needed for nausea. Use your inhaler 2 puffs every 4 hours for the next 48 hours and then as needed thereafter. Return to the emergency department for worsening symptoms as described in the accompanying instructions.
[2017-12-05 14:37] VITALS: O2SAT 100
--- NOTE | 2017-12-05 15:04 | DIAGNOSTIC IMAGING REPORT ---
CHEST ONE VIEW PORTABLE CLINICAL HISTORY: Chest pain. Fatigue. COMPARISON STUDY: Chest radiograph July 14, 2017. FINDINGS: Lucency under the right hemidiaphragm likely reflects gas within bowel given findings on prior imaging studies. No consolidation is identified. There is no evidence of pulmonary edema. Cardiomediastinal silhouette is normal. There is no pneumothorax or pleural effusion. IMPRESSION: No acute cardiopulmonary findings. Electronically signed by: Garcia Koenig M.D. 12/05/2017 3:03 PM Dictated Date/Time: 12/05/2017 3:02 PM
[2017-12-05 15:09] LABS: BASO % 0.2 %; BASO ABS # 0.01 K/uL (0-0.2); EOS % 0.6 %; EOS ABS # 0.03 K/uL (0-0.5); HEMATOCRIT 42.6 % (37-47); HEMOGLOBIN 14.8 g/dL (12.0-16.0); IG# 0.01 K/uL (0.00-0.02); LYMPH % 23.2 %; LYMPH ABS # 1.25 K/uL (1.2-3.4); MEAN CELL VOLUME 93.4 fL (80-100); MEAN CORPUSCULAR HEMOGLOBIN 32.5 pg (25-34); MEAN CORPUSCULAR HGB CONC 34.7 g/dl (32-36); MONO % 5.2 %; MONO ABS # 0.28 K/uL (0.11-0.59); NEUT % 70.6 %; PLATELET COUNT 213 K/uL (130-400); RED CELL DISTRIBUTION WIDTH SD 44.5 fL (36.4-46.3); WHITE BLOOD COUNT 5.38 K/uL (4.8-10.8)
[2017-12-05 15:13] LABS: INFLUENZA B ANTIGEN Neg for Influ B (NEG)
[2017-12-05] MEDS ORDERED: VENL37.593 PO (15:13)
[2017-12-05] MEDS ORDERED: PRT/20 PO (15:14)
[2017-12-05] MEDS ORDERED: LISI-789 PO (15:15)
[2017-12-05 15:28] LABS: ALBUMIN 4.3 gm/dl (3.4-5.0); ALT/SGPT 33 U/L (12-78); AST/SGOT 22 U/L (15-37); BLOOD UREA NITROGEN 12 mg/dl (7-18); CALCIUM 9.4 mg/dl (8.5-10.1); CARBON DIOXIDE 26 mmol/L (21-32); CREATININE 0.81 mg/dl (0.60-1.20); GLUCOSE 109 mg/dl (70-99); LIPASE 93 U/L (73-393); POTASSIUM 4.4 mmol/L (3.5-5.1); SODIUM 134 mmol/L (136-145)
[2017-12-05 15:33] LABS: ALKALINE PHOSPHATASE 118 U/L (45-117); TOTAL PROTEIN 7.8 gm/dl (6.4-8.2)
[2017-12-05 15:48] LABS: INFLUENZA A PCR Neg for Influ A (NEG); INFLUENZA B PCR Neg for Influ B (NEG)
[2017-12-05] MEDS ORDERED: IBUPROFEN 800 MG TAB ONE (15:59)
[2017-12-05] MEDS ORDERED: DEXAMETHASONE **PF** INJ 10 MG/ML VIAL IV ONE (16:45)
[2017-12-05 16:46] VITALS: BP 132/68; PULSE 76; O2SAT 99
[2017-12-05] MEDS ORDERED: ONDA4TAB10 SL (16:50)
== END 2017-12-05 17:21 | disposition home or self-care (01) ==
LOC: C.EDB 14:03 → C.EDC 17:21
DX: J20.9 Acute bronchitis, unspecified (principal); J45.909 Unspecified asthma, uncomplicated; F41.9 Anxiety disorder, unspecified; I25.10 Atherosclerotic heart disease of native coronary artery without angina pectoris; F32.9 Major depressive disorder, single episode, unspecified; K21.9 Gastro-esophageal reflux disease without esophagitis; E78.5 Hyperlipidemia, unspecified; I10 Essential (primary) hypertension; G43.909 Migraine, unspecified, not intractable, without status migrainosus; G47.30 Sleep apnea, unspecified; I25.2 Old myocardial infarction; Z79.82 Long term (current) use of aspirin; Z95.5 Presence of coronary angioplasty implant and graft; Z98.84 Bariatric surgery status; Z87.891 Personal history of nicotine dependence; Z82.0 Family history of epilepsy and other diseases of the nervous system; Z82.49 Family history of ischemic heart disease and other diseases of the circulatory system

== ENCOUNTER → 2018-04-13 | Day surgery (SDC) | payer OTHER ==
[2018-04-06 10:43] VITALS: BMI 28.0
[~2018-04-13] VITALS: Ht 154.9 cm; Wt 67.3 kg
[~2018-04-13] MED LIST changes: +CBD OIL PO; -CHOL100027 PO; +CHOL20007 PO; -CLOP1TAB15 PO; +CLR10 PO; +COEN1CAP7 PO; -FERR1TAB13 PO; +HYDR-389 PO; +LIDOCAINE HCL 2% 2 ML VIAL (20MG/ML) ONE; -LISI-729 PO; +LISI-789 PO; +MAGN1TAB21 PO; -MAGN400T6 PO; +ONDA4TAB10 SL; -OXYC-57 PO; -PRLSR20 PO; +PROPOFOL IV EMULSION 10 MG/ML 20 ML VIAL ONE; +PRT/20 PO; -PRVHFAIN INH; -ROSU5TAB PO; +SODIUM CHLORIDE 0.9% 500ML 500 ML IV ONE; -UBIQ1CAP8 PO; +VENL37.593 PO; +VNTHFA/IN INH
[2018-04-13 09:49] VITALS: Ht 154.9 cm; Wt 67.3 kg
--- NOTE | 2018-04-13 10:20 | Endo History and Physical ---
History & Physical Date of Service: April 13, 2018. Chief Complaint: REFLUX Referring Physician: DR. LI History of Present Illness GERD, needs [facility] Past Medical History Arthritis, Asthma, Anxiety, Reflux, Sleep Apnea, Depression Past Surgical History Hx Cardiac Surgery: Yes (CARDIAC CATH X1 WITH STENT X1-[facility]) Hx Internal Defibrillator: No Hx Pacemaker: No Hx Abdominal Surgery: No (GALLBLADDER REMOVED. HERNIA REPAIR, Gastric bypass, TUBAL) Hx of Implantable Prosthesis: No Hx Post-Op Nausea and Vomiting: Yes Hx Cancer Surgery: No Hx Thoracic Surgery: No Hx Orthopedic: Yes (LEFT FOREARM FRACTURE) Hx Urinary Tract Surgery: No Family History IBD Social History Smoking Status: Former Smoker Hx Substance Use: No Hx Alcohol Use: No Allergies Coded Allergies: Hydromorphone (Verified Allergy, Severe, GI SYMPTOMS, 04/13/18) Nortriptyline (Verified Allergy, Severe, MEMORY PROBLEMS, CONFUSION, ) Topiramate (Verified Allergy, Severe, MEMORY PROBLEMS, CONFUSION, 04/13/18) Morphine (Verified Adverse Reaction, Intermediate, nausea, 04/13/18) Codeine (Verified Adverse Reaction, Mild, NAUSEA, 04/13/18) Terazosin (Verified Adverse Reaction, Mild, NAUSEA, 04/13/18) Current Medications Reported Home Medications Medications Dose Route/Sig Max Daily Dose Days Date Category Dose Instructions [Cbd Oil] 1 Drop PO BID 04/06/18 Reported Ventolin Hfa (Albuterol) 200 Puffs/07119 Mcg Aers 2-4 Puffs INH Q6H PRN 04/06/18 Reported Atarax (Hydroxyzine Hcl) 10 Mg Tab 10 Mg PO DAILY PRN 04/06/18 Reported Coq10 (Coenzyme Q10 (Ubidecarenone)) 200 Mg Cap 1 Tab PO DAILY 04/06/18 Reported Claritin (Loratadine) 10 Mg Tab 10 Mg PO 3XWK 04/06/18 Reported Vitamin D3 (Cholecalciferol) 2,000 Unit Tab 1 Tab PO Q2D 30 04/06/18 Reported Magnesium Citrate (Magnesium Citrate (Mg Suppleme) 100 Mg Tab 1 Tab PO Q2D 04/06/18 Reported Zofran Odt (Ondansetron HCl) 4 Mg Tab 4 Mg SL Q6H 12/05/17 Rx Zestril (Lisinopril) 2.5 Mg Tab 2.5 Mg PO DAILY 1/7/18 Reported Protonix (Pantoprazole Sodium) 20 Mg Tab 20 Mg PO DAILY 12/05/17 Reported Venlafaxine Extended Rel (Venlafaxine Hcl) 37.5 Mg Cap 37.5 Mg PO DAILY 12/05/17 Reported TOTAL LGBO=210.5MG Caltrate 600 Plus (Calcium Carbonate-Vitamin D W/) 1 Tab Tab 1 Tab PO Q2D 02/10/17 Reported Vitamin B-12 (Cyanocobalamin) 1,000 Mcg Tab 2,500 Mcg PO WK 02/10/17 Reported ON SATURDAYS Mvi With Minerals (Multivitamins/Minerals) Tab 1 Tab PO BID 02/10/17 Reported Effexor Xr (Venlafaxine Hcl) 75 Mg Cap 75 Mg PO DAILY 30 02/10/17 Reported TOTAL GUMV=581.5MG Nitrostat (Nitroglycerin) 0.4 Mg Tab 0.4 Mg UT PRN 02/10/17 Reported Xanax (Alprazolam) 0.5 Mg Tab 0.5 Mg PO TID PRN 02/10/17 Reported Aspirin Ec (Aspirin) 81 Mg Tab 81 Mg PO DAILY 02/10/17 Reported Vital Signs Weight (Kilograms): 67.27 Height (Feet): 5 Height (Inches): 1 Date Time Temp Pulse Resp B/P (MAP) Pulse Ox O2 Delivery O2 Flow Rate FiO2 04/13/18 10:11 36.8 63 20 101/68 (79) 96 Room Air Physical Exam General Appearance: no apparent distress Respiratory/Chest: Auscultation: breath sounds normal Cardiovascular: Heart Auscultation: RRR Abdomen: Inspection & Palpation: soft Liver: non-tender Assessment and Plan Stable
--- NOTE | 2018-04-13 12:14 | Anesthesiology Progress Note ---
Anesthesia Post Op Note Date & Time April 13, 2018 at 12:13 Vital Signs Pain Intensity: 2 Vital Signs Past 12 Hours Date Time Temp Pulse Resp B/P (MAP) Pulse Ox O2 Delivery O2 Flow Rate FiO2 04/13/18 11:52 36.0 68 16 102/73 (83) 97 Room Air 04/13/18 10:11 36.8 63 20 101/68 (79) 96 Room Air Notes Mental Status: alert / awake / arousable, participated in evaluation Pt Amnestic to Procedure: Yes Nausea / Vomiting: adequately controlled Pain: adequately controlled Airway Patency, RR, SpO2: stable & adequate BP & HR: stable & adequate Hydration State: stable & adequate Anesthetic Complications: no major complications apparent
[2018-04-13 12:21] VITALS: BP 145/85; PULSE 51; O2SAT 99
--- NOTE | 2018-04-13 12:40 | Discharge Instructions ---
Endoscopy Patient Instructions Date / Procedure(s) Performed April 13, 2018. EGD Allergy Information Coded Allergies: Hydromorphone (Verified Allergy, Severe, GI SYMPTOMS, 04/13/18) Nortriptyline (Verified Allergy, Severe, MEMORY PROBLEMS, CONFUSION, ) Topiramate (Verified Allergy, Severe, MEMORY PROBLEMS, CONFUSION, 04/13/18) Morphine (Verified Adverse Reaction, Intermediate, nausea, 04/13/18) Codeine (Verified Adverse Reaction, Mild, NAUSEA, 04/13/18) Terazosin (Verified Adverse Reaction, Mild, NAUSEA, 04/13/18) Discharge Date / Findings April 13, 2018. Esophagitis, [facility] placed Medication Instructions Stopped Medication(s): PROTONIX PER DR. PALACIOS Provider Instructions Activity Restrictions - No exercising or heavy lifting for 24 hours. - Do not drink alcohol the day of the procedure. - Do not drive a car or operate machinery until the day after the procedure. - Do not make any important decisions or sign important papers in 24 hours after the procedure. Following Day: - Return to full activity which may include returning to work/school. Diet Start your diet with liquids and light foods (jello, soup, juice, toast). Then eat your usual diet if not nauseated. Treatment For Common After Affects For mild abdominal pain, bloating, or excessive gas: - Rest - Eat lightly - Lie on right side Follow-Up Information Follow-up with DR. LI as scheduled Anesthesia Information What You Should Know You have had a procedure that required some medicine to reduce anxiety and discomfort. This treatment is called moderate sedation. After receiving the treatment, you may be sleepy, but you will be able to breathe on your own. The effects of the treatment may last for several hours. Follow these instructions along with Activity/Diet recommendations noted above: * Do NOT do anything where dizziness or clumsiness would be dangerous. * Rest quietly at home today, then you can be up and about tomorrow. * Have a responsible person stay with you the rest of today. * You may have had an I.V. today. If so, you may take the dressing off later today. Recommendations Call your doctor if: * Trouble breathing * Continuous vomiting for more than 24 hours * Temperature above 101 degrees * Severe abdominal pain or bloating * Pain not relieved by pain medicine ordered * There is increased drainage or redness from any incision * A large amount of rectal bleeding greater than 2-3 tablespoons. (If you had a polyp/s removed or have hemorrhoids, a small amount of blood - from the rectum is to be expected.) * You have any unanswered questions or concerns. IN THE EVENT OF A SERIOUS EMERGENCY, GO TO THE NEAREST EMERGENCY ROOM Your discharge instructions were prepared by provider De Palacios. Patient Instructions Signature Page Dorita Barcenas Patient (or Guardian) Signature/Date: I have read and understand the instructions given to me by my caregivers. Caregiver/RN/Doctor Signature/Date: The above-named patient and/or guardian has received patient instructions on this date. + Original Patient Signature Page (only) stays with chart. Please make copy for patient.
--- NOTE | 2018-04-13 12:44 | GI REPORT ---
Patient Name: Dorita Barcenas Procedure Date: 04/13/2018 10:20 AM Date of : 1955 Admit Type: Outpatient Age: 62 Gender: Female Attending MD: De Lujan MD Procedure: Upper GI endoscopy Providers: De Lujan MD Referring MD: Danilo Perez Indications: Epigastric abdominal pain, Suspected gastro-esophageal reflux disease, Abdominal bloating Medicines: Monitored Anesthesia Care Complications: No immediate complications. Estimated Blood Loss: Estimated blood loss: none. Procedure: Pre-Anesthesia Assessment: - Prior to the procedure, a History and Physical was performed, and patient medications and allergies were reviewed. The patient is competent. The risks and benefits of the procedure and the sedation options and risks were discussed with the patient. All questions were answered and informed consent was obtained. Patient identification and proposed procedure were verified by the physician and the nurse in the procedure room. Mental Status Examination: alert and oriented. Airway Examination: normal oropharyngeal airway and neck mobility. Respiratory Examination: clear to auscultation. CV Examination: normal. ASA Grade Assessment: II - A patient with mild systemic disease. After reviewing the risks and benefits, the patient was deemed in satisfactory condition to undergo the procedure. The anesthesia plan was to use monitored anesthesia care (MAC). Immediately prior to administration of medications, the patient was re-assessed for adequacy to receive sedatives. The heart rate, respiratory rate, oxygen saturations, blood pressure, adequacy of pulmonary ventilation, and response to care were monitored throughout the procedure. The physical status of the patient was re-assessed after the procedure. After obtaining informed consent, the endoscope was passed under direct vision. Throughout the procedure, the patient's blood pressure, pulse, and oxygen saturations were monitored continuously. The scope was introduced through the mouth, and advanced to the efferent jejunal loop. The upper GI endoscopy was accomplished without difficulty. The patient tolerated the procedure well. Findings: LA Grade A (one or more mucosal breaks less than 5 mm, not extending between tops of 2 mucosal folds) esophagitis with no bleeding was found in the lower third of the esophagus. Biopsies were taken with a cold forceps for histology. Verification of patient identification for the specimen was done by the physician and nurse using the patient's name and date. The Z-line was found 30 cm from the incisors. The Colectica capsule with delivery system was introduced through the mouth and advanced into the esophagus, such that the SIN pH capsule was positioned 25 cm from the incisors, which was 5 cm proximal to the GE junction. Suction was applied to the well of the SIN pH capsule to suck in the adjacent mucosa of the esophagus using the external vacuum pump set at a minimum vacuum pressure of 580 mmHg for 50 seconds. The SIN pH capsule was then deployed by depressing the plunger on top of the handle to advance the locking pin into the mucosa, thereby attaching the capsule to the esophagus. The plunger was then rotated a quarter turn clockwise to release the capsule from the delivery system. The delivery system was then withdrawn. Endoscopy was utilized for probe placement and diagnostic evaluation. Evidence of a gastric bypass was found. A gastric pouch with a normal size was found. The staple line appeared intact. The gastrojejunal anastomosis was characterized by healthy appearing mucosa. This was traversed. The [id number] limb was not examined as it could not be reached. A few localized erosions with stigmata of recent bleeding were found in the jejunum. Biopsies were taken with a cold forceps for histology. Impression: - LA Grade A reflux esophagitis. Biopsied. - Z-line, 30 cm from the incisors. - Gastric bypass with a normal-sized pouch and intact staple line. Gastrojejunal anastomosis characterized by healthy appearing mucosa. - Jejunal erosion with stigmata of recent bleeding. Biopsied. - The SIN pH capsule was positioned 25 cm from the incisors, which was 5 cm proximal to the GE junction. Recommendation: - Discharge patient to home. - Follow an antireflux regimen. - Await pathology results. - Return to referring physician. De Lujan MD 04/13/2018 12:44:27 PM This report has been signed electronically. Note Initiated On: 04/13/2018 10:20 AM Number of Addenda: 0 I attest to the content of the Intraoperative Record and orders documented therein, exceptions below {[id number]}
--- NOTE | 2018-04-18 18:49 | Gastroenterology Progress Note ---
Gastroenterology Progress Note [facility] interpretation report: Patient was off PPI before and during the study. The fraction of total time the esophageal PH below 4 was 12% on day 1 with a DeMeester score of 47.7 and 13.2% on day 2 with a DeMeester score of 48.5. The average DeMeester score is 48.1 (normal <14.72) and average duration of acid reflux is 12.6% (normal <5.3) indicating significant acid exposure in the distal esophagus. There was borderline symptom correlation. Most reflux episodes were at midnight while patient is supine. Impression: - There is significant acid reflux in the distal esophagus and most reflux episodes were at midnight while patient is supine. Recommendations: Antireflux therapy, lifestyle modifications, raise the head of the bed during sleeping to 45 degrees. Consider trial of Baclofen. De Lujan M.D Gastroenterology
== END | disposition home or self-care (01) ==
LOC: C.GI 09:37
PROVIDERS: ATTEND Student in an Organized Health Care Education/Training Program
DX: K21.9 Gastro-esophageal reflux disease without esophagitis (principal); M19.90 Unspecified osteoarthritis, unspecified site; J45.909 Unspecified asthma, uncomplicated; G47.30 Sleep apnea, unspecified; F32.9 Major depressive disorder, single episode, unspecified; Z95.5 Presence of coronary angioplasty implant and graft; Z98.84 Bariatric surgery status; Z87.891 Personal history of nicotine dependence; Z79.82 Long term (current) use of aspirin; Z88.5 Allergy status to narcotic agent; Z88.8 Allergy status to other drugs, medicaments and biological substances

== ENCOUNTER 2021-04-01 14:28 | Observation (INO) ==
[2021-04-01] MEDS ORDERED: ASPIRIN CHEW 324 MG PO STA (16:04)
[2021-04-01 16:35] LABS: Basophils # (auto) 0.02 K/uL (0-0.2); Basophils % (auto) 0.4 %; Eosinophils # (auto) 0.07 K/uL (0-0.5); Eosinophils % (auto) 1.6 %; Hematocrit (blood only) 38.1 % (37-47); Lymphocytes # (auto) 1.43 K/uL (1.2-3.4); Lymphocytes % (auto) 32.1 %; Mean Corpuscular Hemoglobin 31.3 pg (25-34); Mean Corpuscular Hgb Conc 34.1 g/dL (32-36); Mean Corpuscular Volume 91.8 fL (80-100); Mean Platelet Volume 10.6 fL (7.4-10.4); Monocytes # (auto) 0.34 K/uL (0.11-0.59); Monocytes % (auto) 7.6 %; Neutrophils # (auto) 2.59 K/uL (1.4-6.5); Neutrophils % (auto) 58.3 %; Platelet Count 255 K/uL (130-400); RDW Coefficient of Variation 14.1 % (11.5-14.5); RDW Standard Deviation 47.2 fL (36.4-46.3); Red Blood Count 4.15 M/uL (4.2-5.4); White Blood Count 4.45 K/uL (4.8-10.8)
[2021-04-01 16:43] LABS: Prothrombin Time 9.8 Seconds (9.0-12.0)
[2021-04-01 16:54] LABS: BUN Creatinine Ratio 17.7 (10-20); Blood Urea Nitrogen 14 mg/dl (7-18); Calcium 9.6 mg/dl (8.5-10.1); Carbon Dioxide 27 mmol/L (21-32); Chloride 109 mmol/L (98-107); Creatinine Clr Calc Pharmacy 65.1 ml/min; Est GFR (African American) 87.7; Est GFR (Non-African American) 75.7; Glucose 102 mg/dl (70-99); Lipase 70 U/L (73-393); Sodium 139 mmol/L (136-145)
[2021-04-01 17:00] LABS: Troponin I < 0.015 ng/ml (0-0.045)
--- NOTE | 2021-04-01 17:37 | History & Physical Report ---
Date of Service April 01, 2021 Assessment & Plan (1) Fatigue: (2) Chest pain: Chest pain atypical in setting of possible tick borne illness Does have history of CAD s/p ALMITA to diagonal branch vessel in 2016 Work-up negative so far with EKG showing normal sinus rhythm, checks x-ray without abnormality, initial troponin negative Monitor overnight on telemetry, trend troponin, repeat TTE (last echo from 2017 with mild mid and apical lateral wall hypokinesis. Otherwise, normal resting wall motion) Routine cardiology consult (3) Hypertension: She has been on very tiny dose of lisinopril at home We will add amlodipine 5 mg tonight and continue from tomorrow morning (4) Lightheadedness: (5) Myalgia: This is a 65yo F with a PMH of CAD s/p ALMITA to diagonal branch vessel in 2015, post NE pericarditis, dyslipidemia, history of recurrent GI bleeding, HTN, JSOE, history of gastric bypass, history of Lyme disease and other medical problems listed below who presents with extreme fatigue, myalgias and chest soreness x3 days. Concern for tickborne disease since finding for ticks on self over the past 2 weeks Lyme and Anaplasma serology pending peripheral smear without any evidence of inclusion bodies Lyme IgM titer is positive Awaiting Western blot and also awaiting Anaplasma test Will start intravenous doxycycline for now Covid PCR negative, CXR without acute abnormality, urinalysis negative in the office (6) CAD (coronary artery disease): Continue aspirin. Not on beta vickey or statin. Hgb a1c and fasting lipid panel pending for AM (7) GERD (gastroesophageal reflux disease): Continue PPI (8) Asthma: Albuterol as needed (9) Depression: (10) Anxiety: Continue venlafaxine, mirtazapine at bedtime DVT Ppx: SQ heparin Code status: FULL PCP: Ana Dispo: Observation med tele Patient seen in collaboration with Dr. Wilhelm. Please see addendum. History of Present Illness Primary Care Provider: Danilo Perez MD This is a 65yo F with a PMH of CAD s/p ALMITA to diagonal branch vessel in 2015, post NE pericarditis, dyslipidemia, history of recurrent GI bleeding, HTN, JOSE, history of gastric bypass, history of Lyme disease and other medical problems listed below who presents with extreme fatigue, myalgias and chest soreness x3 days. Patient has found 4 ticks on her in the past 2 weeks. Over the past 3 days, has felt lightheaded, extremely fatigued, short of breath with associated pleuritic soreness of chest as well as myalgias. Denies any fever or chills. No loss of taste or smell. Appetite intact. Denies any nausea or vomiting. States this chest pain is not exertional as she has been doing a lot of yard work without issue. Denies any abdominal pain, dysuria, diarrhea or constipation. Has been taking all medications as scheduled with the exception of 1.25 mg lisinopril, which she self discontinued 2 weeks ago due to low blood pressure at home around 100s/60s. Most recent echo was a stress echo in 2017 that was negative for inducible ischemia. Mild mid and apical lateral wall h ypokinesis. Otherwise, normal resting wall motion. Allergies Allergy/AdvReac Type Severity Reaction Status Date / Time hydromorphone Allergy Severe GI SYMPTOMS Verified 04/01/21 17:45 nortriptyline Allergy Severe MEMORY Verified 04/01/21 17:45 PROBLEMS, CONFUSION topiramate Allergy Severe MEMORY Verified 04/01/21 17:45 PROBLEMS, CONFUSION morphine AdvReac Intermediate nausea Verified 04/01/21 17:45 codeine AdvReac Mild NAUSEA Verified 04/01/21 17:45 terazosin AdvReac Mild NAUSEA Verified 04/01/21 17:45 Home Medications Medication Instructions Recorded Confirmed Type aspirin 81 mg PO DAILY 01/29/20 04/01/21 History ibuprofen 400 mg PO Q6H PRN 01/29/20 04/01/21 History lisinopril 1.25 mg PO DAILY 01/29/20 04/01/21 History mirtazapine 15 mg PO HS 01/29/20 04/01/21 History multivitamin 1 tab PO QAM 01/29/20 04/01/21 History omeprazole 20 mg PO DAILY 01/29/20 04/01/21 History venlafaxine 37.5 mg PO DAILY 01/29/20 04/01/21 History venlafaxine 75 mg PO DAILY 01/29/20 04/01/21 History albuterol sulfate 2 puff INHALATION Q4 PRN 04/01/21 04/01/21 History hydroxyzine HCl 10 mg PO HS PRN 04/01/21 04/01/21 History Past Med/Surg History Medical History Anxiety Asthma CAD (coronary artery disease) "10/2016 - ALMITA to proximal diagonal" Depression GI bleed "no source of bleeding identified" Migraine Surgical History Gastric bypass status for obesity S/P cholecystectomy S/P hernia repair Family History Other Depression Heart disease Social History Smoking Status: Former smoker Smoking End Date: 1979; Hx Alcohol Use: No Hx Substance Use: No Feels Safe at Home: Yes Review of Systems Review of Systems: At least ten systems reviewed and negative except as noted in the HPI. Physical Exam Physical Exam: General Appearance: WD/WN, vitals as above, NAD, sitting up in bed, pleasant, conversing easily Head: normocephalic, atraumatic Eyes: normal inspection, PERRL, conjunctivae normal, anicteric sclerae ENT: external ear and nose normal, oropharynx normal Neck: normal visual inspection, trachea midline, no thyromegaly Respiratory: normal respiratory effort, lungs clear to auscultation, no wheeze, rales, rhonchi. No accessory muscle use Cardiovascular: regular rate, rhythm, no murmur, normal peripheral pulses, no BLE edema. Vessels: no JVD Chest: normal inspection of chest Abdomen/GI: normal bowel sounds, soft, nontender, no hepatosplenomegaly Extremities/Musculoskeletal: no cyanosis or clubbing, extremities motor strength 5/5 Neurologic: PERRL, EOMI, accommodation nl, no face palsy, no dysarthria, CN's II-XI intact bilaterally and moves all extremities Psychiatric: A+Ox3, euthymic affect Skin: no rashes, normal color, warm/dry Results & Data Results & Data ([facility]) Vital Signs (Past 12 Hours) Vital Signs Temp Pulse Resp BP Pulse Ox 04/01/21 14:33 36.7 C 78 18 133/82 97 Laboratory Results Short CBC 04/01/21 Range/Units 16:04 WBC 4.45 L (4.8-10.8) K/uL Hgb 13.0 (12.0-16.0) g/dL Hct 38.1 (37-47) % Plt Count 255 (130-400) K/uL BMP 04/01/21 16:04 Sodium 139 Potassium 4.0 Chloride 109 H Carbon Dioxide 27 BUN 14 Creatinine 0.81 Glucose 102 H Calcium 9.6 Cardiac Enzymes 04/01/21 Range/Units 16:04 Troponin I < 0.015 (0-0.045) ng/ml Diagnostic Findings Chest X-Ray 04/01/21 16:04 XR chest 2V PA/lateral CLINICAL HISTORY: Atypical chest pain COMPARISON STUDY: 01/29/2020 FINDINGS: The cardiac and mediastinal contours are normal. There is no evidence of focal pulmonary consolidation. There is no evidence of failure. No pleural effusions are visualized.[ There is a retrocardiac opacity consistent with a hiatal hernia. IMPRESSION: No active disease in the chest. ACT 112: Negative or not required by law. Electronically signed by: Geovanni Celis M.D. 04/01/2021 5:53 PM ECG Rhythm: normal sinus Change: no significant change Supervising Physician Co-Signing Physician Notes Attending addendum The patient was seen and examined in emergency room She has been complaining of weakness, fatigue arthralgias and shortness of breath with exertion for the last few days or so Denies any chest pain but has some chest tightness without any associated symptoms No fever, chills or rigors and no abdominal pain nausea and or vomiting On examination No apparent distress at rest Her blood pressure noted to be very high at 164/101 Chest-clear to auscultate bilaterally Heart-S1-S2, regular Abdomen-benign Extremities-no edema Does not have any acute arthritis involving any joint Her admission labs, EKG and imaging studies reviewed Nonspecific myalgia and arthralgia to rule out tickborne disease Lyme IgM titer has been positive and will start intravenous doxycycline and await Western blot testing Has significant cardiac history and will rule out ACS and cardiology consult tomorrow Agree with assessment and plan as outlined above by TOYN Dias DR
--- NOTE | 2021-04-01 17:54 | XRay Report ---
XR chest 2V PA/lateral CLINICAL HISTORY: Atypical chest pain COMPARISON STUDY: 01/29/2020 FINDINGS: The cardiac and mediastinal contours are normal. There is no evidence of focal pulmonary co nsolidation. There is no evidence of failure. No pleural effusions are visualized.[ There is a retrocardiac opacity consistent with a hiatal hernia. IMPRESSION: No active disease in the chest. ACT 112: Negative or not required by law. Electronically signed by: Geovanni Celis M.D. 04/01/2021 5:53 PM
[2021-04-01 18:18] LABS: Lyme Ab IgG w/WB Rflx Negative (Negative)
[2021-04-01 18:32] LABS: Lyme Ab IgM w/WB Rflx Positive (Negative)
[2021-04-01 18:51] LABS: Influenza A virus by PCR Negative (Neg); Influenza B virus by PCR Negative (Neg); RSV by PCR Negative (Neg); SARS CoV2 RNA(COVID-19) InHosp NEGATIVE (Negative)
[2021-04-01] MEDS ORDERED: amLODIPine BESYLATE 5 MG TAB PO ONE (21:45)
[2021-04-01] MEDS ORDERED: ACETAMINOPHEN 325 MG TAB PO PRN (21:58)
[2021-04-01] MEDS ORDERED: ALBUTEROL HFA 8 GM INHALER INH PRN (21:58)
[2021-04-01] MEDS ORDERED: ONDANSETRON INJ 2 MG/ML 2 ML VIAL IV PRN (21:58)
[2021-04-01] MEDS ORDERED: POLYETHYLENE (MIRALAX) 17 GM PACK PO PRN (21:58)
[2021-04-01] MEDS ORDERED: hydrOXYzine HCl 10 MG TAB PO PRN (21:58)
[2021-04-01] MEDS: MIRTAZAPINE TAB 15 MG TAB PO SCH (22:28)
[2021-04-01] MEDS: DOXYCYCLINE HYCLATE 100 MG in DEXTROSE 5% 100 ML IV SCH (22:28)
[2021-04-01] MEDS: HEPARIN SOD 5,000 UNIT/0.5 ML VIAL SQ SCH (22:29)
--- NOTE | 2021-04-02 01:18 | Emergency Department Note ---
History of Present Illness General Chief Complaint: Cardiac Assessment Stated Complaint: LIGHTHEADED, FATIGUE, UPPER CHEST DISCOMFORT Time Seen by Provider: 04/01/21 16:03 History of Present Illness Provider Complaint: chest pain Onset (ago): day(s) 2 Duration: intermittent Pain Location: substernal Pain Radiation: none Severity: mild Maximum Pain Intensity: 2 Current Pain Intensity: 1 Quality: + aching Relieved By: + nothing Exacerbated By: + nothing Context: no recent illness, no recent surgery, no recent travel, no trauma/injury and no history of DVT/PE Associated symptoms: + dyspnea; no nausea, no vomiting, no diaphoresis, no syncope, no palpitations, no fever, no cough and no leg swelling Patient is asking to be tested for Lyme disease as she found 4 ticks on her recently. Patient states she was seen at her PCPs office for chest discomfort and was referred to the emergency department today. Home Medications Medication Instructions Recorded Confirmed Type aspirin 81 mg PO DAILY 01/29/20 04/01/21 History ibuprofen 400 mg PO Q6H PRN 01/29/20 04/01/21 History lisinopril 1.25 mg PO DAILY 01/29/20 04/01/21 History mirtazapine 15 mg PO HS 01/29/20 04/01/21 History multivitamin 1 tab PO QAM 01/29/20 04/01/21 History omeprazole 20 mg PO DAILY 01/29/20 04/01/21 History venlafaxine 37.5 mg PO DAILY 01/29/20 04/01/21 History venlafaxine 75 mg PO DAILY 01/29/20 04/01/21 History albuterol sulfate 2 puff INHALATION Q4 PRN 04/01/21 04/01/21 History hydroxyzine HCl 10 mg PO HS PRN 04/01/21 04/01/21 History Allergies Allergy/AdvReac Type Severity Reaction Status Date / Time hydromorphone Allergy Severe GI SYMPTOMS Verified 04/01/21 17:45 nortriptyline Allergy Severe MEMORY Verified 04/01/21 17:45 PROBLEMS, CONFUSION topiramate Allergy Severe MEMORY Verified 04/01/21 17:45 PROBLEMS, CONFUSION morphine AdvReac Intermediate nausea Verified 04/01/21 17:45 codeine AdvReac Mild NAUSEA Verified 04/01/21 17:45 terazosin AdvReac Mild NAUSEA Verified 04/01/21 17:45 Past Med/Surg History Medical History Anxiety Asthma CAD (coronary artery disease) "10/2016 - ALMITA to proximal diagonal" Depression GI bleed "no source of bleeding identified" Migraine Surgical History Gastric bypass status for obesity S/P cholecystectomy S/P hernia repair Family History Other Depression Heart disease Social History Smoking Status: Former smoker Smoking End Date: 1979; Hx Alcohol Use: No Hx Substance Use: No Preferred Language: Martiniquais Communication Ability: Effective [employer] Superintendent Required: No Beliefs That Will Affect Care: None Current Living Situation: Spouse Other Information That Helps Us Care for You: No Feels Safe at Home: Yes Safety Concerns: Feels Safe At This Time Assistive Devices: Glasses Review of Systems A total of 10 systems reviewed and were otherwise negative Physical Exam Vital Signs Vital Signs - 24 hr 04/01/21 14:33 04/01/21 16:25 04/01/21 16:28 Temperature 36.7 C Temperature Source Temporal Artery Scan Pulse Rate 78 63 65 Pulse Rate from SpO2 Sensor 64 Respiratory Rate 18 18 14 Respiratory Effort / Characteristics Non-Labored Spontaneous Respiratory Depth Normal Respiratory Pattern Regular Blood Pressure 133/82 148/98 H Blood Pressure Mean 99 114 Pulse Oximetry 97 100 Oxygen Delivery Method Room Air Sepsis Recent Fever Within 48 Hours No Sepsis New/Unexplained Change in Mental Status N/A Sepsis Action Taken by Nursing No Action Required 04/01/21 16:30 04/01/21 17:00 04/01/21 17:01 Temperature Temperature Source Pulse Rate 71 63 63 Pulse Rate from SpO2 Sensor 67 63 62 Respiratory Rate 17 13 14 Respiratory Effort / Characteristics Respiratory Depth Respiratory Pattern Blood Pressure 157/101 H 150/93 H Blood Pressure Mean 119 112 Pulse Oximetry 97 97 98 Oxygen Delivery Method Sepsis Recent Fever Within 48 Hours Sepsis New/Unexplained Change in Mental Status Sepsis Action Taken by Nursing 04/01/21 17:30 04/01/21 17:36 04/01/21 17:37 Temperature Temperature Source Pulse Rate 61 65 64 Pulse Rate from SpO2 Sensor 60 66 64 Respiratory Rate 12 16 14 Respiratory Effort / Characteristics Respiratory Depth Respiratory Pattern Blood Pressure 164/101 H Blood Pressure Mean 122 Pulse Oximetry 98 98 98 Oxygen Delivery Method Sepsis Recent Fever Within 48 Hours Sepsis New/Unexplained Change in Mental Status Sepsis Action Taken by Nursing 04/01/21 17:42 04/01/21 18:00 04/01/21 18:01 Temperature Temperature Source Pulse Rate 67 64 Pulse Rate from SpO2 Sensor 67 65 Respiratory Rate 17 15 Respiratory Effort / Characteristics Respiratory Depth Respiratory Pattern Blood Pressure 153/112 H Blood Pressure Mean 125 Pulse Oximetry 96 100 97 Oxygen Delivery Method Room Air Sepsis Recent Fever Within 48 Hours Sepsis New/Unexplained Change in Mental Status Sepsis Action Taken by Nursing Physical Exam GENERAL: She is oriented to person, place, and time. She appears well-developed and well-nourished. She does not appear distressed. HENT: Exam performed. -Head: Normocephalic and atraumatic. -Right Ear: External ear normal. No mastoid tenderness. -Left Ear: External ear normal. No mastoid tenderness. -Mouth/Throat: The oropharynx is clear and moist. No trismus in the jaw. No dental abscesses or uvula swelling. No oropharyngeal exudate or tonsillar abscesses. EYES: Conjunctivae and EOM are normal. Pupils are equal, round, and reactive to light. Right eye exhibits no discharge. Left eye exhibits no discharge. No scleral icterus. NECK: Normal range of motion. Neck supple. No JVD present. No spinous process tenderness present. No carotid bruit present. No rigidity. No tracheal deviation and normal range of motion present. No Brudzinski's sign and no Kernig's sign noted. CV: Normal rate, regular rhythm, normal heart sounds and intact distal pulses. There is no peripheral edema. Palpable radial pulses bue. PULM/CHEST: Effort normal and breath sounds normal. No respiratory distress. No stridor. She has no wheezes. She has no rales. -Chest Wall: She exhibits no tenderness. ABD: The abdomen is soft. Bowel sounds are normal. She has no distension. No mass is present. There is no tenderness. There is no rebound, no guarding, no Negro's sign and no tenderness at McBurney's point. Rovsig negative MUSC/SKEL: Normal range of motion. There is no peripheral edema, tenderness or deformity. LYMPH: No cervical adenopathy. NEURO: She is alert and oriented to person, place, and time. She has normal strength. No cranial nerve deficit or sensory deficit. Coordination and gait normal. GCS eye subscore is 4. GCS verbal subscore is 5. GCS motor subscore is 6. Cerebellar tests wnl. SKIN: Skin is warm and dry. She is not diaphoretic. PSYCH: She has a normal mood and affect. Behavior is normal. Judgment and thought content normal. Course Course 1603: The patient was evaluated in room C5. A complete history and physical exam was performed Cardiac monitoring: An order was placed for continuous cardiac monitoring. The monitor shows a rate of 60 with sinus rhythm Administered Medications Heparin Sodium (Porcine) (Heparin Sod 5,000 Unit/0.5 Ml Vial) 5,000 units SQ Q8 PADMINI Stop: 05/01/21 21:59 Last Admin: 04/01/21 22:29 Dose: 5,000 units Documented by: [id number] Doxycycline Hyclate 100 mg/ (Dextrose) 110 mls @ 50 mls/hr IV Q12H PADMINI Stop: 04/11/21 21:59 Last Infusion: 04/02/21 00:45 Dose: 0 mls/hr Documented by: [id number] Admin: 04/01/21 22:28 Dose: 50 mls/hr Documented by: [id number] Mirtazapine (Mirtazapine Tab 15 Mg Tab) 15 mg PO HS PADMINI Stop: 05/01/21 21:57 Last Admin: 04/01/21 22:28 Dose: 15 mg Documented by: [id number] Discontinued Medications Amlodipine Besylate (Amlodipine Besylate 5 Mg Tab) 5 mg PO ONE ONE Stop: 04/01/21 21:46 Last Admin: 04/01/21 22:28 Dose: 5 mg Documented by: [id number] Aspirin (Aspirin Chew 324 Mg) 324 mg PO NOW STA Stop: 04/01/21 16:05 Last Admin: 04/01/21 16:11 Dose: 324 mg Documented by: [id number] Medical Decision Making Laboratory Data Result diagrams: 04/01/21 16:04 04/01/21 16:04 Labs: Lab Results 04/01/21 04/01/21 04/01/21 Range/Units 16:04 16:04 16:04 WBC 4.45 L (4.8-10.8) K/uL RBC 4.15 L (4.2-5.4) M/uL Hgb 13.0 (12.0-16.0) g/dL Hct 38.1 (37-47) % MCV 91.8 (80-100) fL MCH 31.3 (25-34) pg MCHC 34.1 (32-36) g/dL RDW Std Deviation 47.2 H (36.4-46.3) fL RDW Coeff of Christelle 14.1 (11.5-14.5) % Plt Count 255 (130-400) K/uL MPV 10.6 H (7.4-10.4) fL Immature Gran % (Auto) 0.0 % Neut % (Auto) 58.3 % Lymph % (Auto) 32.1 % [place] % (Auto) 7.6 % Eos % (Auto) 1.6 % Baso % (Auto) 0.4 % Neut # (Auto) 2.59 (1.4-6.5) K/uL Lymph # (Auto) 1.43 (1.2-3.4) K/uL [place] # (Auto) 0.34 (0.11-0.59) K/uL Eos # (Auto) 0.07 (0-0.5) K/uL Baso # (Auto) 0.02 (0-0.2) K/uL Immature Gran # (Auto) 0.00 (0.00-0.02) K/uL PT 9.8 (9.0-12.0) Seconds INR 1.0 (0.9-1.1) Sodium 139 (136-145) mmol/L Potassium 4.0 (3.5-5.1) mmol/L Chloride 109 H (98-107) mmol/L Carbon Dioxide 27 (21-32) mmol/L Anion Gap 4.0 (3-11) BUN 14 (7-18) mg/dl Creatinine 0.81 (0.6-1.2) mg/dl Est Cr Clr Drug Dosing 65.1 ml/min Est GFR ( Amer) 87.7 Est GFR (Non-Af Amer) 75.7 BUN/Creatinine Ratio 17.7 (10-20) Glucose 102 H (70-99) mg/dl Calcium 9.6 (8.5-10.1) mg/dl Troponin I < 0.015 (0-0.045) ng/ml Lipase 70 L (73-393) U/L Specimen Hemolysis Anaplasma Smear See Comment Lyme Disease IgG Ab (Negative) Lyme Disease IgM Ab (Negative) COVID-19 Eval Order SARS-CoV-2 (PCR) (Negative) Influenza Type A (PCR) (Neg) Influenza Type B (PCR) (Neg) RSV (RT-PCR) (Neg) 04/01/21 04/01/21 04/01/21 Range/Units 17:05 17:05 17:18 WBC (4.8-10.8) K/uL RBC (4.2-5.4) M/uL Hgb (12.0-16.0) g/dL Hct (37-47) % MCV (80-100) fL MCH (25-34) pg MCHC (32-36) g/dL RDW Std Deviation (36.4-46.3) fL RDW Coeff of Christelle (11.5-14.5) % Plt Count (130-400) K/uL MPV (7.4-10.4) fL Immature Gran % (Auto) % Neut % (Auto) % Lymph % (Auto) % [place] % (Auto) % Eos % (Auto) % Baso % (Auto) % Neut # (Auto) (1.4-6.5) K/uL Lymph # (Auto) (1.2-3.4) K/uL [place] # (Auto) (0.11-0.59) K/uL Eos # (Auto) (0-0.5) K/uL Baso # (Auto) (0-0.2) K/uL Immature Gran # (Auto) (0.00-0.02) K/uL PT (9.0-12.0) Seconds INR (0.9-1.1) Sodium (136-145) mmol/L Potassium (3.5-5.1) mmol/L Chloride (98-107) mmol/L Carbon Dioxide (21-32) mmol/L Anion Gap (3-11) BUN (7-18) mg/dl Creatinine (0.6-1.2) mg/dl Est Cr Clr Drug Dosing ml/min Est GFR ( Amer) Est GFR (Non-Af Amer) BUN/Creatinine Ratio (10-20) Glucose (70-99) mg/dl Calcium (8.5-10.1) mg/dl Troponin I (0-0.045) ng/ml Lipase (73-393) U/L Specimen Hemolysis Anaplasma Smear Lyme Disease IgG Ab Negative (Negative) Lyme Disease IgM Ab Positive A (Negative) COVID-19 Eval Order [facility]FluRsv at [facility] SARS-CoV-2 (PCR) NEGATIVE (Negative) Influenza Type A (PCR) Negative (Neg) Influenza Type B (PCR) Negative (Neg) RSV (RT-PCR) Negative (Neg) Imaging Data Chest x-ray: Radiologist's impression: Chest X-Ray 04/01/21 16:04 XR chest 2V PA/lateral CLINICAL HISTORY: Atypical chest pain COMPARISON STUDY: 01/29/2020 FINDINGS: The cardiac and mediastinal contours are normal. There is no evidence of focal pulmonary consolidation. There is no evidence of failure. No pleural effusions are visualized.[ There is a retrocardiac opacity consistent with a hiatal hernia. IMPRESSION: No active disease in the chest. ACT 112: Negative or not required by law. Electronically signed by: Geovanni Celis M.D. 04/01/2021 5:53 PM ECG Data Indication: chest pain Rate (beats per minute): 60 Rhythm: normal sinus Findings: no ST depression, no ST elevation and no prolonged QT MDM Narrative Vital signs stable. Labs and imaging within normal limits with the exception of Lyme positive IgM. Patient will be treated with doxycycline ordered by the hospitalist team patient admitted to the hospitalist team for chest pain rule out ACS spoke with Tracey Diaz who stated to admit to Dr. Wilhelm Impression & Plan Chest pain, Acute Lyme disease Discharge Plan Visit Data Chief Complaint: Cardiac Assessment Stated Complaint: LIGHTHEADED, FATIGUE, UPPER CHEST DISCOMFORT ED Provider: Fredy Casarez Discharge Problem: Chest pain, Acute Lyme disease Patient Disposition: Admitted As Inpatient Discharge Instructions Interventions: ED Discharge Assessment Last Done: 04/01/21 21:26 Discharge Problem: Chest pain Qualifiers: Chest pain type: unspecified Qualified Code(s): R07.9 - Chest pain, unspecified
[2021-04-02] MEDS: HEPARIN SOD 5,000 UNIT/0.5 ML VIAL SQ SCH ×3 (06:00→20:28)
[2021-04-02 08:15] LABS: Hematocrit (blood only) 39.6 % (37-47); Hemoglobin 13.3 g/dL (12.0-16.0); Mean Corpuscular Hgb Conc 33.6 g/dL (32-36); Mean Corpuscular Volume 92.3 fL (80-100); Mean Platelet Volume 10.6 fL (7.4-10.4); Platelet Count 232 K/uL (130-400); RDW Coefficient of Variation 14.2 % (11.5-14.5); RDW Standard Deviation 48.3 fL (36.4-46.3); Red Blood Count 4.29 M/uL (4.2-5.4); White Blood Count 4.33 K/uL (4.8-10.8)
[2021-04-02] MEDS: VENLAFAXINE HCL XR 37.5 MG CAPXR PO SCH (08:19)
[2021-04-02] MEDS: PANTOprazole 40 MG TAB PO SCH (08:19)
[2021-04-02] MEDS: ASPIRIN 81 MG ECTAB PO SCH (08:19)
[2021-04-02] MEDS: MULTIVITAMIN TAB PO SCH (08:19)
[2021-04-02] MEDS: VENLAFAXINE HCL XR 75 MG CAPXR PO SCH (08:19)
--- NOTE | 2021-04-02 08:41 | Electrocardiogram Report ---
Test Reason : Blood Pressure : / mmHG Vent. Rate : 060 BPM Atrial Rate : 060 BPM P-R Int : 152 ms QRS Dur : 084 ms QT Int : 406 ms P-R-T Axes : 052 030 046 degrees QTc Int : 406 ms Normal sinus rhythm Normal ECG When compared with ECG of 01-APR-2021 14:35, No significant change was found Confirmed by Constantino Mcclure ([id number]) on 04/02/2021 8:41:40 AM Referred By: Confirmed By:Constantino Mcclure
[2021-04-02 08:46] LABS: BUN Creatinine Ratio 24.2 (10-20); Blood Urea Nitrogen 16 mg/dl (7-18); Calcium 9.3 mg/dl (8.5-10.1); Carbon Dioxide 28 mmol/L (21-32); Chloride 109 mmol/L (98-107); Cholesterol 188 mg/dl (0-200); Creatinine Clr Calc Pharmacy 77.7 ml/min; Est GFR (African American) 105.6; Est GFR (Non-African American) 91.2; Glucose 98 mg/dl (70-99); Sodium 142 mmol/L (136-145)
[2021-04-02 08:51] LABS: Chol HDL Ratio 3; HDL Cholesterol 69 mg/dl; LDL Cholesterol Calculated 93 mg/dl; Triglycerides 131 mg/dl (0-150); Troponin I < 0.015 ng/ml (0-0.045); VLDL Cholesterol 26 mg/dl
[2021-04-02] MEDS ORDERED: amLODIPine BESYLATE 5 MG TAB PO SCH (09:00)
--- NOTE | 2021-04-02 09:06 | Electrocardiogram Report ---
Test Reason : Blood Pressure : / mmHG Vent. Rate : 064 BPM Atrial Rate : 064 BPM P-R Int : 150 ms QRS Dur : 090 ms QT Int : 422 ms P-R-T Axes : 063 052 067 degrees QTc Int : 435 ms Normal sinus rhythm Normal ECG When compared with ECG of 01-APR-2021 16:14, No significant change was found Confirmed by Constantino Mcclure ([id number]) on 04/02/2021 9:06:00 AM Referred By: REFERRED SELF Confirmed By:Constantino Mcclure
[2021-04-02] MEDS ORDERED: IBUPROFEN 200 MG TAB PO ONE (09:39)
[2021-04-02 09:42] LABS: Estimated Average Glucose 111 mg/dl; Hemoglobin A1C 5.5 % (4.5-5.6)
[2021-04-02] MEDS: DOXYCYCLINE HYCLATE 100 MG in DEXTROSE 5% 100 ML IV SCH ×2 (09:52→22:06)
--- NOTE | 2021-04-02 10:36 | Cardiology Consultation ---
Date of Consultation April 02, 2021 Assessment & Plan (1) Acute Lyme disease: Patient has recent history of tick bites, and her Lyme screen reveals preliminary finding of positive IgM. The remaining serology data is currently pending. Agree with proceeding with the appropriate course of antibiotics. No evidence of Lyme myocarditis based on negative troponins, normal echo. No evidence of AV block. (2) Chest pain: Vague chest discomfort. Negative EKG x2 - troponin I. No resting wall motion abnormalities. Proceed with treatment for Lyme disease. Suspicion patient's complaints being suggestive of angina is low, and her presentation at this point does not look like it is suggestive of an acute intra coronary plaque rupture. Continue prior to hospital treatment with aspirin 81 mg daily, amlodipine Per review of outpatient chart, she has declined lipid-lowering therapy in the past and this was not revisited today. History of Present Illness Attending Physician: Aldo Stevens MD History of Present Illness Dorita Barcenas is a 65 year old female seen in cardiology consultation per the request of Tracey Diaz PA-C for the evaluation of chest discomfort. At the time of my assessment in room 263-1 the patient's only subjective complaint is headache. On further discussion, she describes several days of progressive severe debilitating fatigue. She denies subjective fevers or chills. She notes that she removed for deer ticks within about the last week, but notes no fever or rash. On review of systems she describes a vague " ache/discomfort" of her upper chest. She cannot remember if this is reminiscent of her prior anginal equivalent, but she believes that the angina pain that she experienced at the time of her previous myocardial infarction was different and lower. Past Cardiac History: Coronary heart disease having presented with a non-ST segment elevation myocardial infarction in October, for which she underwent cardiac catheterization and drug-eluting stent to a diagonal branch of the LAD. She has a history of post myocardial infarction pericarditis Palpitations Dyslipidemia Recurrent gastrointestinal bleeding Allergies Allergy/AdvReac Type Severity Reaction Status Date / Time hydromorphone Allergy Severe GI SYMPTOMS Verified 04/01/21 17:45 nortriptyline Allergy Severe MEMORY Verified 04/01/21 17:45 PROBLEMS, CONFUSION topiramate Allergy Severe MEMORY Verified 04/01/21 17:45 PROBLEMS, CONFUSION morphine AdvReac Intermediate nausea Verified 04/01/21 17:45 codeine AdvReac Mild NAUSEA Verified 04/01/21 17:45 terazosin AdvReac Mild NAUSEA Verified 04/01/21 17:45 Home Medications Medication Instructions Recorded Confirmed Type aspirin 81 mg PO DAILY 01/29/20 04/01/21 History ibuprofen 400 mg PO Q6H PRN 01/29/20 04/01/21 History lisinopril 1.25 mg PO DAILY 01/29/20 04/01/21 History mirtazapine 15 mg PO HS 01/29/20 04/01/21 History multivitamin 1 tab PO QAM 01/29/20 04/01/21 History omeprazole 20 mg PO DAILY 01/29/20 04/01/21 History venlafaxine 37.5 mg PO DAILY 01/29/20 04/01/21 History venlafaxine 75 mg PO DAILY 01/29/20 04/01/21 History albuterol sulfate 2 puff INHALATION Q4 PRN 04/01/21 04/01/21 History hydroxyzine HCl 10 mg PO HS PRN 04/01/21 04/01/21 History Patient History Medical History Anxiety Asthma CAD (coronary artery disease) "10/2016 - ALMITA to proximal diagonal" Depression GI bleed "no source of bleeding identified" Migraine Surgical History Gastric bypass status for obesity S/P cholecystectomy S/P hernia repair Family History Other Depression Heart disease Social History Smoking Status: Former smoker Smoking End Date: 1979; Hx Alcohol Use: No Hx Substance Use: No Preferred Language: Slovenian Communication Ability: Effective Cardiology Clinical Nurse Specialist Required: No Beliefs That Will Affect Care: None Current Living Situation: Spouse Other Information That Helps Us Care for You: No Feels Safe at Home: Yes Safety Concerns: Feels Safe At This Time Assistive Devices: Glasses Review of Systems Review of Systems: All systems reviewed & are unremarkable except as noted in HPI & below Physical Exam Physical Exam: Temp Pulse Resp BP Pulse Ox 36.5 C 61 18 96/59 L 96 04/02/21 07:24 04/02/21 07:46 04/02/21 07:24 04/02/21 07:24 04/02/21 07:24 Constitutional: WD/WN, vitals as above Respiratory: normal respiratory effort, lungs clear to auscultation Cardiovascular: RRR, no murmur, no edema Gastrointestinal (Abdomen): normal bowel sounds, soft, nontender, no hepatosplenomegaly Skin: no rashes, warm and dry Neurologic: PERRL, EOMI, accommodation nl, no face palsy, no dysarthria Results & Data ([facility]) Vital Signs (Past 12 Hours) Vital Signs Temp Pulse Pulse Pulse Resp BP BP 04/02/21 07:46 61 04/02/21 07:24 36.5 C 63 18 96/59 L 04/02/21 02:50 36.5 C 67 18 109/74 04/01/21 23:21 36.3 C L 79 17 124/82 Pulse Ox 04/02/21 07:46 04/02/21 07:24 96 04/02/21 02:50 93 04/01/21 23:21 92 Laboratory Results Cardiac Enzymes 04/01/21 04/02/21 Range/Units 16:04 07:28 Troponin I < 0.015 < 0.015 (0-0.045) ng/ml Coagulation 04/01/21 Range/Units 16:04 PT 9.8 (9.0-12.0) Seconds Lipids 04/02/21 Range/Units 07:28 Triglycerides 131 (0-150) mg/dl Cholesterol 188 (0-200) mg/dl HDL Cholesterol 69 mg/dl Cholesterol/HDL Ratio 3 CBC 04/01/21 04/02/21 Range/Units 16:04 07:28 WBC 4.45 L 4.33 L (4.8-10.8) K/uL RBC 4.15 L 4.29 (4.2-5.4) M/uL Hgb 13.0 13.3 (12.0-16.0) g/dL Hct 38.1 39.6 (37-47) % Plt Count 255 232 (130-400) K/uL Neut # (Auto) 2.59 (1.4-6.5) K/uL Lymph # (Auto) 1.43 (1.2-3.4) K/uL [place] # (Auto) 0.34 (0.11-0.59) K/uL Eos # (Auto) 0.07 (0-0.5) K/uL Baso # (Auto) 0.02 (0-0.2) K/uL Comprehensive Metabolic Panel 04/01/21 04/02/21 Range/Units 16:04 07:28 Sodium 139 142 (136-145) mmol/L Potassium 4.0 4.0 (3.5-5.1) mmol/L Chloride 109 H 109 H (98-107) mmol/L Carbon Dioxide 27 28 (21-32) mmol/L BUN 14 16 (7-18) mg/dl Creatinine 0.81 0.68 (0.6-1.2) mg/dl Glucose 102 H 98 (70-99) mg/dl Calcium 9.6 9.3 (8.5-10.1) mg/dl Intake and Output 04/01/21 04/02/21 04/02/21 22:59 06:59 14:59 Intake Total 470 / 470 Balance 470 / 470 Intake: IV 110 / 110 Doxycycline Hyclate 100 mg In 110 / 110 Dextrose 5% 100 ml @ 50 mls/hr IV Q12H [facility] Rx#:[id number] Oral 360 / 360 Other: # Unmeasured Voids 1 1 Weight 78.3 kg 79.5 kg Weight Measurement Method Standing Scale Built in [facility] Diagnostic Findings EKG performed 04/02/2021 at 5:51 AM revealed normal sinus rhythm at 64 bpm, normal EKG. Unchanged compared to 04/01/2021. Echocardiogram performed today and reviewed independently by the undersigned: No regional wall motion abnormalities of the left ventricle noted, normal LVEF, 6065%, the right ventricular chamber size and systolic function is normal, mild tricuspid regurgitation noted, no pericardial effusion. (1) Chest pain Chest pain type: unspecified Qualified Code(s): R07.9 - Chest pain, unspecified
--- NOTE | 2021-04-02 11:22 | Electrocardiogram Report ---
Test Reason : Blood Pressure : / mmHG Vent. Rate : 073 BPM Atrial Rate : 073 BPM P-R Int : 144 ms QRS Dur : 080 ms QT Int : 386 ms P-R-T Axes : 070 058 070 degrees QTc Int : 425 ms Poor data quality, interpretation may be adversely affected Normal sinus rhythm Normal ECG When compared with ECG of 29-JAN-2020 12:36, No significant change was found Confirmed by Norberto Novak ([id number]) on 04/02/2021 11:22:23 AM Referred By: REFERRED SELF Confirmed By:Norberto Novak
--- NOTE | 2021-04-02 18:36 | Hospitalist Progress Note ---
Date of Service April 02, 2021 Assessment & Plan (1) Fatigue: (2) Chest pain: Patient is a 65 yr female with H/O CAD s/p ALMITA to diagonal branch vessel in 2016, post [place] pericarditis, dyslipidemia, history of recurrent GI bleeding, HTN, JOSE, history of gastric bypass, history of Lyme disease who presents with extreme fatigue, myalgias and chest soreness x3 days. Atypical chest pain H/O CAD s/p ALMITA to diagonal branch vessel in 2016 Less likely ACS Negative cardiac enzymes EKG no signs of ischemia Echo no regional wall motion abnormality Appreciate cardiology input Continue aspirin 81 mg daily (3) Hypertension: Presented with elevated blood pressure BP variable Continue lisinopril Added amlodipine 2.5 mg daily Monitor BP (4) Lightheadedness: (5) Myalgia: Acute Lyme's disease Recent history of tick bite Follow-up serology Continue doxycycline (6) CAD (coronary artery disease): Continue aspirin (7) GERD (gastroesophageal reflux disease): Continue PPI (8) Asthma: Albuterol as needed (9) Depression: (10) Anxiety: Continue venlafaxine, mirtazapine at bedtime DVT Px: SQ heparin Code status: FULL CODE Admission and Anticipated Discharge Date Admission Date: April 01, 2021 Subjective Patient is seen and examined at bedside States having headache earlier today Also had minimal dizziness associated with generalized weakness Denies chest pain, dyspnea, abdominal pain Offers no other complaints Review of Systems Review of Systems: All systems reviewed & are unremarkable except as noted in HPI & below Physical Exam Physical Exam: Physical Exam: Vitals signs as noted above General Appearance:Moderately built and nourished, no apparent distress Head: normocephalic, Atraumatic Eyes: normal inspection, EOMI Neck: supple, Trachea midline Respiratory/Chest: Normal breath sounds, CTA Cardiovascular: S1, S2, No murmur Abdomen/GI:Soft, Non tender, Bowel sounds present Extremities/Musculoskeletal:normal inspection, no edema Neurologic/Psych:AAOX3, grossly no focal neurological deficits Skin: normal color, warm Results & Data Results & Data ([facility]) Vital Signs (Past 12 Hours) Vital Signs Temp Pulse Pulse Resp BP Pulse Ox 04/02/21 15:21 74 04/02/21 15:00 36.8 C 72 18 132/85 94 04/02/21 11:48 36.8 C 68 18 135/93 94 04/02/21 07:46 61 04/02/21 07:24 36.5 C 63 18 96/59 L 96 Laboratory Results Short CBC 04/02/21 Range/Units 07:28 WBC 4.33 L (4.8-10.8) K/uL Hgb 13.3 (12.0-16.0) g/dL Hct 39.6 (37-47) % Plt Count 232 (130-400) K/uL BMP 04/02/21 07:28 Sodium 142 Potassium 4.0 Chloride 109 H Carbon Dioxide 28 BUN 16 Creatinine 0.68 Glucose 98 Calcium 9.3 Cardiac Enzymes 04/02/21 Range/Units 07:28 Troponin I < 0.015 (0-0.045) ng/ml (1) Chest pain Chest pain type: unspecified Qualified Code(s): R07.9 - Chest pain, unspecified
[2021-04-02] MEDS: MIRTAZAPINE TAB 15 MG TAB PO SCH (22:06)
[2021-04-02] MEDS: DOXYCYCLINE HYCLATE 100 MG CAP PO SCH (23:30)
[2021-04-03] MEDS: HEPARIN SOD 5,000 UNIT/0.5 ML VIAL SQ SCH (05:57)
[2021-04-03 06:51] LABS: BUN Creatinine Ratio 24.7 (10-20); Creatinine Clr Calc Pharmacy 79.3 ml/min; Est GFR (African American) 106.7; Est GFR (Non-African American) 92.1; Magnesium 2.2 mg/dl (1.8-2.4); Potassium 3.8 mmol/L (3.5-5.1)
[2021-04-03] MEDS: VENLAFAXINE HCL XR 75 MG CAPXR PO SCH (08:15)
[2021-04-03] MEDS: DOXYCYCLINE HYCLATE 100 MG CAP PO SCH (08:15)
[2021-04-03] MEDS: ASPIRIN 81 MG ECTAB PO SCH (08:15)
[2021-04-03] MEDS: VENLAFAXINE HCL XR 37.5 MG CAPXR PO SCH (08:15)
[2021-04-03] MEDS: MULTIVITAMIN TAB PO SCH (08:15)
[2021-04-03] MEDS: PANTOprazole 40 MG TAB PO SCH (08:15)
[2021-04-03] MEDS ORDERED: lisinopril 2.5 MG TAB PO SCH (09:00)
[2021-04-03] MEDS ORDERED: amLODIPine BESYLATE 5 MG TAB PO SCH (09:00)
--- NOTE | 2021-04-03 12:44 | Hospitalist Progress Note ---
Date of Service April 03, 2021 Assessment & Plan (1) Fatigue: (2) Chest pain: Patient is a 65 yr female with H/O CAD s/p ALMITA to diagonal branch vessel in 2016, post [place] pericarditis, dyslipidemia, history of recurrent GI bleeding, HTN, JOSE, history of gastric bypass, history of Lyme disease who presents with extreme fatigue, myalgias and chest soreness x3 days. Atypical chest pain H/O CAD s/p ALMITA to diagonal branch vessel in 2016 Less likely ACS Negative cardiac enzymes EKG no signs of ischemia Echo no regional wall motion abnormality Appreciate cardiology input Continue aspirin 81 mg daily Resolved No recurrence of chest pain (3) Hypertension: Presented with elevated blood pressure BP variable Continue lisinopril Added amlodipine 2.5 mg daily Monitor BP (4) Lightheadedness: (5) Myalgia: Acute Lyme's disease Recent history of tick bite Follow-up serology Continue doxycycline to complete the course (6) CAD (coronary artery disease): Continue aspirin (7) GERD (gastroesophageal reflux disease): Continue PPI (8) Asthma: Albuterol as needed (9) Depression: (10) Anxiety: Continue venlafaxine, mirtazapine at bedtime DVT Px: SQ heparin Code status: FULL CODE Admission and Anticipated Discharge Date Admission Date: April 01, 2021 Subjective Patient is seen and examined at bedside States feeling well today Offers no complaints Headache, dizziness resolved Weakness improved Denies chest pain, dyspnea, abdominal pain Offers no other complaints Review of Systems Review of Systems: All systems reviewed & are unremarkable except as noted in HPI & below Physical Exam Physical Exam: Physical Exam: Vitals signs as noted above General Appearance:Moderately built and nourished, no apparent distress Head: normocephalic, Atraumatic Eyes: normal inspection, EOMI Neck: supple, Trachea midline Respiratory/Chest: Normal breath sounds, CTA Cardiovascular: S1, S2, No murmur Abdomen/GI:Soft, Non tender, Bowel sounds present Extremities/Musculoskeletal:normal inspection, no edema Neurologic/Psych:AAOX3, grossly no focal neurological deficits Skin: normal color, warm Results & Data Results & Data ([facility]) Vital Signs (Past 12 Hours) Vital Signs Temp Pulse Pulse Resp BP Pulse Ox 04/03/21 10:56 36.6 C 71 18 136/85 95 04/03/21 07:34 36.4 C L 70 18 118/82 96 04/03/21 07:23 60 04/03/21 05:02 36.5 C 61 14 135/84 98 Laboratory Results BMP 04/03/21 05:40 Sodium 141 Potassium 3.8 Chloride 110 H Carbon Dioxide 26 BUN 16 Creatinine 0.66 Glucose 99 Calcium 9.0 (1) Chest pain Chest pain type: unspecified Qualified Code(s): R07.9 - Chest pain, unspecified
--- NOTE | 2021-04-03 12:49 | Discharge Summary ---
Date of Service April 03, 2021 Admission HPI Per Admitting Provider This is a 65yo F with a PMH of CAD s/p ALMITA to diagonal branch vessel in 2016, post [place] pericarditis, dyslipidemia, history of recurrent GI bleeding, HTN, JOSE, history of gastric bypass, history of Lyme disease and other medical problems listed below who presents with extreme fatigue, myalgias and chest soreness x3 days. Patient has found 4 ticks on her in the past 2 weeks. Over the past 3 days, has felt lightheaded, extremely fatigued, short of breath with associated pleuritic soreness of chest as well as myalgias. Denies any fever or chills. No loss of taste or smell. Appetite intact. Denies any nausea or vomiting. States this chest pain is not exertional as she has been doing a lot of yard work without issue. Denies any abdominal pain, dysuria, diarrhea or constipation. Has been taking all medications as scheduled with the exception of 1.25 mg lisinopril, which she self discontinued 2 weeks ago due to low blood pressure at home around 100s/60s. Most recent echo was a stress echo in 2017 that was negative for inducible ischemia. Mild mid and apical lateral wall hypokinesis. Otherwise, normal resting wall motion. Admission Exam Per Admitting Provider Physical Exam Physical Exam: General Appearance: WD/WN, vitals as above, NAD, sitting up in bed, pleasant, conversing easily Head: normocephalic, atraumatic Eyes: normal inspection, PERRL, conjunctivae normal, anicteric sclerae ENT: external ear and nose normal, oropharynx normal Neck: normal visual inspection, trachea midline, no thyromegaly Respiratory: normal respiratory effort, lungs clear to auscultation, no wheeze, rales, rhonchi. No accessory muscle use Cardiovascular: regular rate, rhythm, no murmur, normal peripheral pulses, no BLE edema. Vessels: no JVD Chest: normal inspection of chest Abdomen/GI: normal bowel sounds, soft, nontender, no hepatosplenomegaly Extremities/Musculoskeletal: no cyanosis or clubbing, extremities motor strengt h 5/5 Neurologic: PERRL, EOMI, accommodation nl, no face palsy, no dysarthria, CN's II-XI intact bilaterally and moves all extremities Psychiatric: A+Ox3, euthymic affect Skin: no rashes, normal color, warm/dry Principal Diagnosis Lyme's disease Atypical chest pain Hypertension Discharge Data Allergies Allergy/AdvReac Type Severity Reaction Status Date / Time hydromorphone Allergy Severe GI SYMPTOMS Verified 04/01/21 17:45 nortriptyline Allergy Severe MEMORY Verified 04/01/21 17:45 PROBLEMS, CONFUSION topiramate Allergy Severe MEMORY Verified 04/01/21 17:45 PROBLEMS, CONFUSION morphine AdvReac Intermediate nausea Verified 04/01/21 17:45 codeine AdvReac Mild NAUSEA Verified 04/01/21 17:45 terazosin AdvReac Mild NAUSEA Verified 04/01/21 17:45 Consultations 04/01/21 17:14 ED Decision to Admit Stat 04/02/21 08:00 Consult Cardiology Routine Hospital Course (1) Fatigue: (2) Chest pain: Patient is a 65 yr female with H/O CAD s/p ALMITA to diagonal branch vessel in 2016, post [place] pericarditis, dyslipidemia, history of recurrent GI bleeding, HTN, JOSE, history of gastric bypass, history of Lyme disease who presents with extreme fatigue, myalgias and chest soreness x3 days. Atypical chest pain H/O CAD s/p ALMITA to diagonal branch vessel in 2016 Less likely ACS Negative cardiac enzymes EKG no signs of ischemia Echo no regional wall motion abnormality Appreciate cardiology input Continue aspirin 81 mg daily Resolved No recurrence of chest pain (3) Hypertension: Presented with elevated blood pressure BP variable Continue lisinopril Added amlodipine 2.5 mg daily Monitor BP (4) Lightheadedness: (5) Myalgia: Acute Lyme's disease Recent history of tick bite Follow-up serology Continue doxycycline to complete the course (6) CAD (coronary artery disease): Continue aspirin (7) GERD (gastroesophageal reflux disease): Continue PPI (8) Asthma: Albuterol as needed (9) Depression: (10) Anxiety: Continue venlafaxine, mirtazapine at bedtime DVT Px: SQ heparin Code status: FULL CODE Total Time Total Time Spent Total Time Spent (In Minutes): 40 minutes Total Time Includes: Examination of the Patient, Discharge Planning, Medication Reconciliation, Communication With Other Providers and Other Discharge Plan Discharge Items Patient Disposition: Home - Self-Care Reason For Visit: CP, FATIGUE, MYALGIAS Discharge Diagnosis: Lyme's disease Atypical chest pain Hypertension Activity: Per Instructions section Exercise/Sports: Gradually increase as tolerated Non-emergency contact: Primary Care Provider Call non-emergency contact if: you have any medication questions, your symptoms worsen, your pain is concerning for you and you have a fever Follow-up/Referrals: Danilo Perez MD [Primary Care Provider] - (Date & Time 04/07/2021 3:40 PM Provider Danilo Perez MD Department Family Practice [facility] ) Diet: Heart Healthy Addtl Attending Provider Instructions: Follow-up with your primary care physician Dr. Perez on 04/07/2021 3:40 PM Complete the doxycycline antibiotic course for Lyme's disease. Discussed with your family physician, for further recommendations on duration of course as advised. Start taking amlodipine 2.5 mg daily for better control of your blood pressure. Your final serological blood test for Lyme's disease is pending at the time of discharge. Follow-up with your physician for results. Pending Studies at Discharge: Yes Studies:: Serological Tests for Lyme Stand-Alone Forms: My [facility] [employer], Smoking Cessation Medications and DC Order Prescriptions: New doxycycline hyclate 100 mg Capsule 100 mg PO BID 14 Days Qty: 28 RF: 0 amlodipine [Norvasc] 5 mg Tablet 2.5 mg PO QAM Qty: 30 RF: 0 Continued multivitamin Tablet 1 tab PO QAM RF: 0 venlafaxine 37.5 mg capsule,extended release 24hr 37.5 mg PO DAILY RF: 0 venlafaxine 75 mg capsule,extended release 24hr 75 mg PO DAILY RF: 0 aspirin 81 mg Tablet,Delayed Release (Dr/Ec) 81 mg PO DAILY RF: 0 ibuprofen 200 mg Tablet 400 mg PO Q6H PRN (Reason: Pain) RF: 0 omeprazole 20 mg capsule,delayed release(DR/EC) 20 mg PO DAILY RF: 0 mirtazapine 15 mg tablet 15 mg PO HS RF: 0 lisinopril 2.5 mg tablet 1.25 mg PO DAILY RF: 0 albuterol sulfate 90 mcg/actuation HFA aerosol inhaler 2 puff INHALATION Q4 PRN (Reason: Shortness Of Breath) RF: 0 hydroxyzine HCl 10 mg tablet 10 mg PO HS PRN (Reason: Anxiety) RF: 0 Discharge Orders: Discharge Order (Routine); Ordered 04/03/21 Ordered By: Aldo Stevens Admission Data Admit Date/Time: 04/01/21 18:21 Attending Provider: Aldo Stevens Admit Provider: Joe Wilhelm Primary Care Provider: Danilo Perez Other Providers: Joe Wilhelm ; Karthik Willis Other Interventions: Discharge Summary Assessment (RN) Last Done: 04/03/21 13:58
[2021-04-05 02:01] LABS: 18KDIGG Band NON-REACTIVE; 23KDIGG Band REACTIVE; 23KDIGM Band REACTIVE; 28KDIGG Band NON-REACTIVE; 30KDIGG Band NON-REACTIVE; 39KDIGG Band NON-REACTIVE; 39KDIGM Band NON-REACTIVE; 41KDIGG Band REACTIVE; 41KDIGM Band NON-REACTIVE; 45KDIGG Band NON-REACTIVE; 58KDIGG Band REACTIVE; 66KDIGG Band NON-REACTIVE; 93KDIGG Band NON-REACTIVE; Lyme Antibodies, WB IgG NEGATIVE (NEGATIVE); Lyme Antibodies, WB IgM NEGATIVE (NEGATIVE)
== END 2021-04-03 14:29 | disposition home or self-care (01) ==
LOC: 2W 14:28 → ED 14:28 → SUATTDRO 18:21 → 2W 21:26